=== PATIENT | male | born 1950 | race Caucasian/White ===

== ENCOUNTER 2019-08-29 12:25 | Outpatient (CLI) | payer MEDICARE, SELFPAY ==
--- NOTE | 2019-08-29 12:48 | ECHO_ITS ---
Patient Info Name: Eric Connor Age: 69 years : 1950 Gender: Male Ht: 66 in Wt: 151 lbs BSA: 1.79 m2 HR: 101 bpm BP: 125 / 81 mmHg Exam Date: 08/29/2019 1:05 PM Exam Location: [facility] Pul[facility] Patient Status: Outpatient Admit Date: 08/29/2019 Staff Ordering Physician: Tristan Cheng DO Help Desk Assistant: Theresa Lund RDCS Attending Provider: Tristan Cheng DO Referring Physician: Prosper CONNER; Exam Type: CA echo doppler color flow Study Info Indications I35.0 - Nonrheumatic aortic (valve) stenosis Complete two-dimensional, color flow and Doppler transthoracic echocardiogram is performed. Summary 1. Left ventricular chamber dimension is severely enlarged. 2. Left ventricular systolic function is severely reduced, estimated at 30-35%. 3. The left ventricular diastolic function is grade IV diastolic dysfunction. 4. E/e' 24 is elevated. 5. Left atrial chamber dimension is moderately enlarged. 6. Right atrial chamber dimension is mildly enlarged. 7. There is severe aortic valve sclerosis. 8. By planimetry, Aortic valve area is 0.7 cm2. 9. Dimensionless index is 26.1 which suggests mod-severe aortic stenosis. 10. There is severe aortic valve stenosis with a peak velocity of 299 cm/s, mean gradient of 13 mmHg, and aortic valve area of 0.6 cm2. 11. There is mild aortic valve regurgitation. 12. There is mild to moderate mitral valve regurgitation. 13. There is mild to moderate tricuspid valve regurgitation. 14. Mild pulmonary hypertension, estimated pulmonary arterial systolic pressure is 48 mmHg. 15. Mild atheroma in anterior and posterior aortic root. Left Ventricle E/e' 24 is elevated. Left ventricular chamber dimension is severely enlarged. Left ventricular systolic function is severely reduced, estimated at 30-35%. The left ventricular diastolic function is grade IV diastolic dysfunction. Right Ventricle Right ventricular chamber dimension is normal. Right ventricular systolic function is normal. Left Atria Left atrial chamber dimension is moderately enlarged. Right Atria Right atrial chamber dimension is mildly enlarged. Aortic Valve By planimetry, Aortic valve area is 0.7 cm2. Dimensionless index is 26.1 which suggests mod-severe aortic stenosis. The aortic valve is trileaflet. There is severe aortic valve sclerosis. There is severe aortic valve stenosis with a peak velocity of 299 cm/s, mean gradient of 13 mmHg, and aortic valve area of 0.6 cm2. There is mild aortic valve regurgitation. Pulmonic Valve There is no pulmonic regurgitation. Mitral Valve There is no mitral valve stenosis. There is mild to moderate mitral valve regurgitation. Tricuspid Valve There is mild to moderate tricuspid valve regurgitation. Mild pulmonary hypertension, estimated pulmonary arterial systolic pressure is 48 mmHg. Pericardium/Pleural There is no pericardial effusion. Inferior Vena Cava Normal inferior vena cava with >50% collapse upon inspiration consistent with normal right atrial pressure, 5 mmHg. Aorta Mild atheroma in anterior and posterior aortic root. The aortic root size at the sinus of Valsalva is normal. Left Ventricular Outflow Tract Name Value Normal LVOT 2D LVOT Diameter
== END 2019-08-29 12:26 | disposition home or self-care (01) ==
LOC: ANHCARD 12:34
PROVIDERS: PCP Family Medicine; Visit Provider Internal Medicine Cardiovascular Disease
DX: I35.0 Nonrheumatic aortic (valve) stenosis (principal)
CPT/HCPCS: 93306

== ENCOUNTER 2019-09-21 10:26 | Outpatient (CLI) | payer MEDICARE, SELFPAY ==
[2019-09-27 10:35] LABS: Testosterone Free 110.7 pg/mL (30.0-135.0); Testosterone Total 1035 ng/dL (250-1100)
== END 2019-09-21 10:27 | disposition home or self-care (01) ==
LOC: ANHBWCLAB 10:30
PROVIDERS: PCP Family Medicine; Visit Provider Family Medicine
DX: E03.9 Hypothyroidism, unspecified (principal); E78.5 Hyperlipidemia, unspecified; Z12.5 Encounter for screening for malignant neoplasm of prostate; Z82.62 Family history of osteoporosis; Z79.899 Other long term (current) drug therapy; N99.89 Other postprocedural complications and disorders of genitourinary system
CPT/HCPCS: 36415; 84402; 84403

== ENCOUNTER 2020-11-12 17:19 | Inpatient (IN) | payer MEDICARE, SELFPAY ==
[2020-11-12] VITALS (17 sets, daily range): BP systolic 104–138; BP diastolic 72–76; PULSE 91–121; RESP 17–23; TEMP 36.2–36.6; O2SAT 94–100; BMI 21.4
--- NOTE | ~2020-11-12 | US_ITS ---
EXAMINATION: US carotid duplex BI DATE: 11/13/2020 11:57 INDICATION: Carotid atherosclerosis. Weakness and syncope TECHNIQUE: Grayscale, color Doppler, and pulsed Doppler images of the cervical carotid arteries were obtained. The degree of vessel stenosis is placed in one of the following categories: normal, <50%, 5 0-69%, >=70% but less than near-occlusion, near-occlusion, or total occlusion. Note that percent sten osis relative to normal distal artery lumen diameter is indirectly measured from velocity measurement s as described by Jay, et al. Radiology 2003; 229:340-346. COMPARISON: None. FINDINGS: RIGHT: The right common carotid artery (CCA) peak systolic velocity (PSV) is 65 cm/s. The right internal car otid artery (ICA) PSV is 82 cm/s. The right ICA end-diastolic velocity (EDV) is 18 cm/s. The right IC A/CCA PSV ratio is 1.3. Grayscale and color Doppler images yield an estimate of <50% diameter reducti on from plaque in the ICA. The external carotid artery (ECA) PSV is 77 cm/s. There is antegrade flow in the right vertebral artery. LEFT: The left CCA PSV is 73 cm/s. The left ICA PSV is 83 cm/s. The left ICA EDV is 20 cm/s. The left ICA/C CA PSV ratio is 1.1. Grayscale and color Doppler images yield an estimate of <50% diameter reduction from plaque in the ICA. The ECA PSV is 82 cm/s. There is antegrade flow in the left vertebral artery. IMPRESSION: 1. <50% stenosis in the right internal carotid artery. 2. <50% stenosis in the left internal carotid artery. Reviewed, dictated and finalized at location A.
--- NOTE | ~2020-11-12 | XR_ITS ---
EXAMINATION: XR chest 2V DATE: 11/12/2020 17:41 INDICATION: Chronic shortness of breath. TECHNIQUE: Frontal and lateral views of the chest were obtained. COMPARISON: Chest 2 views 04/06/2019 FINDINGS: There are small pleural effusions. There is mild atelectasis at the lung bases. No pneumoth orax. Cardiomegaly is noted. IMPRESSION: 1. Small pleural effusions. 2. Cardiomegaly. Reviewed, dictated and finalized at location A.
--- NOTE | ~2020-11-12 | XR_ITS ---
EXAMINATION: XR abdomen/kub 1V DATE: 11/12/2020 19:20 INDICATION: Bloating. TECHNIQUE: A supine view of the abdomen was obtained. COMPARISON: None. FINDINGS: There are no dilated loops of bowel. There is a paucity of stool in the colon. IMPRESSION: 1. Normal bowel gas pattern. Reviewed, dictated and finalized at location A.
--- NOTE | 2020-11-12 17:30 | ECG_ITS ---
Measurements Intervals [place] Rate: 116 P: ND: 0 QRS: -57 QRSD: 101 T: 115 QT: 324 QTc: 450 Interpretive Statements SINUS TACHYCARDIA LEFT AXIS DEVIATION LEFT VENTRICULAR HYPERTROPHY AND ST-T CHANGE CANNOT RULE OUT SEPTAL INFARCT, AGE INDETERMINATE BORDERLINE ST-T WAVE ABNORMALITY- LATERAL LEADS ABNORMAL ECG Electronically Signed On 11-12-2020 19:50:00 CDT by Tristan Cheng D.O.
[2020-11-12 17:37] LABS: Basophils Percent Auto 0.5 % (0.2-1.2); Eosinophils Absolute Auto 0.1 K/mm3 (0-0.3); Eosinophils Percent Auto 0.9 % (0-4.4); Hematocrit 42.5 % (42.0-52.0); Hemoglobin 14.2 g/dL (14.0-18.0); Immature Granulocyte Absolute 0.01 K/mm3 (0.00-0.031); Immature Granulocyte Percent A 0.2 % (0-0.5); Lymphocytes Absolute Auto 2.24 K/mm3 (0.9-3.2); Lymphocytes Percent Auto 39.1 % (18.3-44.2); Mean Corpuscular HGB Conc 33.4 g/dl (32-36); Mean Corpuscular Hemoglobin 34.3 pg (26-34); Mean Corpuscular Volume 102.7 fl (80-100); Monocytes Absolute Auto 0.5 K/mm3 (0.1-0.6); Monocytes Percent Auto 7.9 % (2.6-8.5); Neutrophils Percent Auto 51.4 % (45.5-73.1); Platelet Count Result 120 k/mm3 (150-375); Red Blood Count 4.14 M/mm3 (4.6-6.20); Red Cell Distribution Width 15.1 % (11.5-14.5); White Blood Count 5.7 K/mm3 (4.5-10.0)
[2020-11-12 17:46] LABS: Anion Gap 10 mmol/L (8-16); Blood Urea Nitrogen 29 mg/dL (9-20); Calcium 9.7 mg/dL (8.4-10.2); Carbon Dioxide 22 mmol/L (22-30); Chloride 108 mmol/L (98-107); Estimated CRCL calculation 45 ml/min; Estimated Glomerular Filt Rate 60; Glucose 104 mg/dL (75-110); Potassium 4.9 mmol/L (3.4-5.0); Sodium 140 mmol/L (137-145)
[2020-11-12 18:27] LABS: NT Pro B Type Natriuretic Pept 13800 pg/mL (5-100)
[2020-11-12] MEDS: FUROSEMIDE INJ 40 MG/4 ML VIAL IV PUSH (19:11)
--- NOTE | 2020-11-12 19:14 | ED.GENADULT ---
HPI - General Adult General Chief complaint: Shortness of Breath/Dyspnea Stated complaint: SOB Time Seen by Provider: 11/12/20 17:24 History of Present Illness HPI narrative: Patient is a 70-year-old male who presents ER with multiple complaints. Main complaint is shortness of breath has been ongoing and worsening for the last year but markedly more over the last couple of months. Reports he can only walk 50 feet before he is profoundly weak and short of breath. 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 Reports overnight he turned blue in the lips after getting an argument and losing his breath. He is also had some intermittent swelling in his legs. Denies orthopnea but reports he cannot sleep at night. Unsure why. Today while eating he felt like he could not finish a hotdog due to distention of his abdomen. Reports he intermittently has a good bowel movement but he is mostly just been releasing air from his rectum. Denies diarrhea. Related Data Allergies Allergy/AdvReac Type Severity Reaction Status Date / Time No Known Allergies Allergy Verified 11/12/20 17:28 Review of Systems Review of Systems: All systems reviewed & are unremarkable except as noted in HPI and below Constitutional: Constitutional: Denies chills, Denies fever(s) and Denies weakness ENT: Denies nasal congestion and Denies sore throat Cardiovascular: Cardiovascular: Denies chest pain, Denies rapid heart rate and Denies radiating jaw, neck or arm pain Respiratory: Respiratory: Denies cough, Reports dyspnea and Denies wheezing Gastrointestinal: Gastrointestinal: Denies abdominal pain, Reports bloating, Denies nausea and Denies vomiting PMFSH Past Medical History Medical History Bradycardia Dyslipidemia Hyperglycemia Hypothyroidism, unspecified Pulmonary emphysema Syncope and collapse Systolic murmur Family History Family History Grandparent Family history of congestive heart failure Mother Family history of Alzheimer's disease Social History Social History Years smoked: 30 Smoking status: Light tobacco smoker Tobacco type: cigarettes Second hand tobacco smoke exposure: No Alcohol intake: current Drinks per week: 1 Substance use: never Exam Narrative: Exam Narrative: GENERAL: Well-appearing, well-nourished, and in no acute distress. HEAD: Normocephalic, atraumatic. CHEST: Clear to auscultation. No respiratory distress. HEART: Tachycardic and regular. Normal peripheral pulses. ABDOMEN: Soft, nontender, nondistended. EXTREMITIES: Normal range of motion. 1+ edema. SKIN: Warm, dry, no rash. NEURO: Alert and oriented x3. PSYCH: Normal mood and affect. Course Reevaluation(s) Reevaluation #1: Chart review shows patient had an echocardiogram 2019 with mild aortic valve stenosis. Repeat echo in 2019 showed moderate to severe according to Dr. Cheng's note. Patient has been referred to see Dr. Baumann and has scheduled follow-up on 11/19/2020. I suspect patient has severe to critical and likely needs valve replacement. Patient be admitted to the hospitalist service to be diuresed and have a repeat echo. I will have the heart care group consulted. Date: 11/12/20 Time: 20:11 Vital Signs Vital signs: Vital Signs Temperature 97.9 F 11/12/20 17:23 Pulse Rate 121 H 11/12/20 17:23 Respiratory Rate 20 11/12/20 17:23 Blood Pressure 113/74 11/12/20 17:23 Pulse Oximetry 99 11/12/20 17:23 Temperature 97.9 F 11/12/20 17:23 Pulse Rate 98 11/12/20 19:52 Respiratory Rate 18 11/12/20 19:52 Blood Pressure 112/76 11/12/20 19:16 Pulse Oximetry 99 11/12/20 19:52 Medical Decision Making Vital Signs Vital Signs: Vital Signs Temperature 97.9 F 11/12/20 17:23 Pulse Rate 121 H 11/12/20 17:23 Respiratory Rate 20 05/0
--- NOTE | 2020-11-12 21:19 | ADMGEN ---
This patient, Eric Connor, was admitted to 2 Medical Room 253-. Patient/family oriented to hospital policies and general routines including ID bracelet, bed and alarms, visiting hours, pain management, procedures, bathroom and other care routines, personal items, smoking policy, room service/diet, and visiting hours. Information on how to activate the Rapid Response Team has been discussed. Patient/Family are encouraged to report perceived risks to care and to ask questions if they do not understand what they are told or what they should do.
--- NOTE | 2020-11-12 22:40 | PM.IMHP ---
H&P: HPI History of Present Illness Date/Time: 11/12/20 22:40 Patient is a 70-year-old male who presents ER with worsening shortness of breath this afternoon, but has been ongoing for many months. He has been getting weaker and progressvely getting short of breath. he has been daignsoed with severe aortic stenosis for which he is going to see Dr. Turcios next week. he rpeots one night he got so short of breath his lips turned blue and lost his breath. today he was not able to eat because fo how short of breath he got. he gets intermittent swelling of his legs as well. he was given some lasix in [facility] and he is currently feeling much better. Chief Complaint: shortness of breath Review of Systems Review of Systems: Narrative: - CONSTITUTIONAL: Denies weight loss, fever and chills. - HEENT: Denies changes in vision and hearing - RESPIRATORY: reports SOB and denies cough. - CV: Denies palpitations and CP. - GI: Denies abdominal pain, nausea, vomiting and diarrhea. - : Denies dysuria and urinary frequency. - MSK: Denies myalgia and joint pain. - SKIN: Denies rash and pruritus. - NEUROLOGICAL: Denies headache and syncope. - PSYCHIATRIC: Denies recent changes in mood. Denies anxiety and depression. All systems reviewed & are unremarkable except as noted in HPI and below PMFSH Past Medical History Medical History Bradycardia Dyslipidemia Hyperglycemia Hypothyroidism, unspecified Pulmonary emphysema Syncope and collapse Systolic murmur Family History Family History Grandparent Family history of congestive heart failure Mother Family history of Alzheimer's disease Social History Social History Years smoked: 30 Smoking status: Current some day smoker Tobacco type: cigarettes Second hand tobacco smoke exposure: No Alcohol intake: former Drinks per week: 1 Substance use: never Substance use type: does not use Gender identity (if verbalized by the patient): Male Sexual Orientation (if Verbalized by the Patient): Straight or Heterosexual Spiritual care concerns: No Meds Home Medications and Allergies Home Medications Medication Instructions Recorded Confirmed Type carvedilol 3.125 mg PO DAILY 11/12/20 11/12/20 History coenzyme Q10 [Co Q-10] 100 mg PO DAILY 11/12/20 11/12/20 History levothyroxine 125 mcg PO DAILY 11/12/20 11/12/20 History lisinopril 2.5 mg PO DAILY 11/12/20 11/12/20 History pravastatin 10 mg PO DAILY 11/12/20 11/12/20 History Allergies Allergy/AdvReac Type Severity Reaction Status Date / Time No Known Allergies Allergy Verified 11/12/20 17:28 Vital Signs Vital Signs - 24 hr 11/12/20 17:23 11/12/20 17:25 11/12/20 17:29 Temperature 97.9 F Pulse Rate 121 H 121 H 116 H Respiratory Rate 20 23 H 21 H Blood Pressure 113/74 113/74 Pulse Oximetry 99 96 97 11/12/20 17:30 11/12/20 17:31 11/12/20 17:45 Temperature Pulse Rate 113 H 112 H Respiratory Rate 20 22 H Blood Pressure 104/72 Pulse Oximetry 96 95 95 11/12/20 18:01 11/12/20 18:15 11/12/20 18:30 Temperature Pulse Rate Respiratory Rate Blood Pressure Pulse Oximetry 98 95 94 11/12/20 18:45 11/12/20 19:12 11/12/20 19:15 Temperature Pulse Rate 94 91 103 H Respiratory Rate 18 17 21 H Blood Pressure 138/72 Pulse Oximetry 96 97 94 11/12/20 19:16 11/12/20 19:37 11/12/20 19:52 Temperature Pulse Rate 100 100 98 Respiratory Rate 20 20 18 Blood Pressure 112/76 Pulse Oximetry 95 96 99 11/12/20 21:26 11/12/20 21:48 Temperature 97.1 F L Pulse Rate 110 H 98 Respiratory Rate 18 Blood Pressure 113/74 Pulse Oximetry 100 Exam Narrative: Exam Narrative: GENERAL: The patient is well developed, not in acute distress HEENT: Nonicteric sclerae, PERRLA, EOMI. Oropharynx clear. Grady
[2020-11-13] VITALS (11 sets, daily range): BP systolic 92–118; BP diastolic 62–68; PULSE 72–97; RESP 18–20; TEMP 35.8–36.2; O2SAT 97–98
--- NOTE | 2020-11-13 | ECHO_ITS ---
Patient Info Name: Eric Connor Age: 70 years : 1950 Gender: Male Ht: 66 in Wt: 133 lbs BSA: 1.68 m2 HR: 92 bpm BP: 103 / 63 mmHg Heart Rhythm: Sinus Rhythm Technical Quality: Good Exam Date: 11/13/2020 3:58 PM Exam Location: [facility] Pulmonary Exam Room: 253 Patient Status: Inpatient Admit Date: 11/12/2020 Staff Ordering Physician: Geraldine Cooley NP Top Carrier: Soha Vasquez RDCS Attending Provider: Geraldine Cooley NP Referring Physician: Yasir JOEL; Exam Type: CA echo doppler color flow Study Info Indications - syncope chf Complete two-dimensional, color flow and Doppler transthoracic echocardiogram is performed. Summary 1. Complete two-dimensional, color flow and Doppler transthoracic echocardiogram is performed. 2. Moderate left ventricular enlargement. Surprisingly, no LVH. Left ventricular systolic function is severely reduced, estimated at 15%. Calculated ejection fraction 24%. Severe global hypokinesis with some sparing of the basal inferior wall. The septum and apex appear akinetic. Grade 2 diastolic dysfunction is present. 3. Right ventricular chamber dimension is mildly enlarged with moderate hypokinesis. 4. Left atrial chamber dimension is severely enlarged. 5. Right atrial chamber dimension is mildly enlarged. 6. There is moderate to severe aortic valve stenosis with a peak velocity of 2.8 m/s, mean gradient of 17 mmHg, and aortic valve area of 1.1 cm2, and an AVAI of 0.6 cm2. The valve does appear severely stenotic and heavily calcified. The low peak valvular velocity and low mean gradient may be a reflection of the patient's poor cardiac output. However he may have an unrelated cardiomyopathy as well as aortic stenosis. 7. There is moderate mitral valve regurgitation. 8. There is mild tricuspid valve regurgitation. 9. Moderate pulmonary hypertension, estimated pulmonary arterial systolic pressure is 52 mmHg. 10. Normal sinus rhythm. Left Ventricle Left ventricular chamber dimension is moderately enlarged. Moderate left ventricular enlargement. Surprisingly, no LVH. Left ventricular systolic function is severely reduced, estimated at 15%. Calculated ejection fraction 24%. Severe global hypokinesis with some sparing of the basal inferior wall. The septum and apex appear akinetic. Grade 2 diastolic dysfunction is present. There is no increased left ventricular wall thickness. Left ventricular septal wall motion is normal. The left ventricular diastolic function is grade II diastolic dysfunction. Right Ventricle Right ventricular chamber dimension is mildly enlarged with moderate hypokinesis. Right ventricular systolic function is reduced. Left Atria Left atrial chamber dimension is severely enlarged. Right Atria Right atrial chamber dimension is mildly enlarged. Aortic Valve The aortic valve is not well visualized. There is no aortic valve sclerosis. There is moderate to severe aortic valve stenosis with a peak velocity of 2.8 m/s, mean gradient of 17 mmHg, and aortic valve area of 1.1 cm2, and an AVAI of 0.6 cm2. The valve does appear severely stenotic and heavily calcified. The low peak valvular velocity and low mean gradient may be a reflection of the patient's poor cardiac output. However he may have an unrelated cardiomyopathy as well as aortic stenosis. There is mild aortic valve regurgitation. There is severe aortic valve calcification. Pulmonic Valve The pulmonic valve is normal. There is no pulmonic valve stenosis. There is trace pul
[2020-11-13] MEDS: LEVOTHYROXINE SODIUM 125 MCG TABLET PO (06:07)
[2020-11-13] MEDS: LEVOTHYROXINE SODIUM 25 MCG TABLET PO (08:42)
[2020-11-13] MEDS: lisinopriL 2.5 MG TABLET PO (08:43)
[2020-11-13] MEDS: FUROSEMIDE INJ 40 MG/4 ML VIAL IV PUSH (08:43)
[2020-11-13] MEDS: carvediloL 3.125 MG TABLET PO (08:44)
[2020-11-13] MEDS: PRAVASTATIN SODIUM 10 MG TABLET PO (08:44)
[2020-11-13] MEDS: ENOXAPARIN 40 MG/0.4 ML SYRINGE SUB-Q (08:45)
--- NOTE | 2020-11-13 10:19 | PM.IMPN ---
Progress Note: A&P Assessment and Plan (1) CHF (congestive heart failure): Code(s): I50.9 - Heart failure, unspecified Status: Acute Assessment and Plan: ekg with sinus tachycardia and strain pattern. CXR with bilateal mild effusions and cardiomegaly. BNP 41741 improved with diuresis. will continue diuresis. ECHO ordered. has history low ER and Aortic stenosis - last years ECHO. ECHO 09/2019: with aortic valve area 0.7 cm2, dimensions index 26.1 suggesting moderate to severe . Cardiomyopathy with EF 30-35% per echo 09/2019: mild to moderate MR/TR. continue bband acei. combined diastolic and systolic heart failrue: acute on chronic. hx of syncope: Cardiology suggested PPM in past but patient refused/no F/U. mild thrombocytopenia and uncompenstated hypothyroidsim may also be contributory DVT proph: lovenox (2) Hypothyroidism, unspecified: Code(s): E03.9 - Hypothyroidism, unspecified Status: Acute Assessment and Plan: Not fully compensated. TSH was elevated at 7.76. Patient's levothyroxine was changed from 100 mcg 125 mcg by his primary care provider Today raised the dose to 150 mcg at this time. Instructed the patient to recheck his TSH in 6 weeks with his primary care provider. (3) Dyspnea: Code(s): R06.00 - Dyspnea, unspecified Status: Acute Assessment and Plan: Improved after diuresis recheck BNP tomorrow planning for diuresis need to continue on regular basis to avoid repeat exacerbation daily weights strict I and O CHF teaching (4) Combined systolic and diastolic cardiac dysfunction: Code(s): I51.89 - Other ill-defined heart diseases Status: Acute Assessment and Plan: see plan for CHF and Dyspnea (5) Systolic murmur: Code(s): R01.1 - Cardiac murmur, unspecified Status: Acute Assessment and Plan: see aortic stenosis plan (6) Aortic stenosis: Code(s): I35.0 - Nonrheumatic aortic (valve) stenosis Status: Acute Assessment and Plan: continue telemetry monitoring CXR with bilateal mild effusions and cardiomegaly. BNP 58983 improved with diuresis. will continue diuresis. ECHO ordered. has history low ER and Aortic stenosis - last years ECHO. ECHO 09/2019: with aortic valve area 0.7 cm2, dimensions index 26.1 suggesting moderate to severe . Cardiomyopathy with EF 30-35% per echo 09/2019: mild to moderate MR/TR. continue bband acei. combined diastolic and systolic heart failrue: acute on chronic. hx of syncope: Cardiology suggested PPM in past but patient refused/no F/U. 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 BNP 23539 improved with diuresis. will continue diuresis. ECHO ordered. daily weights strict I and Os. supplemental O2 as needed (9) Cardiomyopathy: Code(s): I42.9 - Cardiomyopathy, unspecified Status: Acute Assessment and Plan: ekg with sinus tachycardia and strain pattern. BNP 33005 - repeat in morning no chest pain at this time, no chest pressure will continue diuresis. ECHO ordered. possibility of a PPM (10) Syncope and collapse: Code(s): R55 - Syncope and collapse Status: Acute Assessment and Plan: telemetry monitoring continued ambulating in room without difficulty Subjective Date/time seen: 11/13/20 10:19 He noticed that he was having shortness of br
--- NOTE | 2020-11-13 13:59 | PM.CNCAR ---
Assessment and Plan Assessment and plan (1) Systolic and diastolic CHF w/reduced LV function, NYHA class 4: Code(s): I50.40 - Unspecified combined systolic (congestive) and diastolic (congestive) heart failure Status: Acute Assessment and Plan: Patient presents with acute on chronic systolic and diastolic CHF due to severe aortic stenosis and his cardiomyopathy. Improved with diuretics. He was diagnosed with severe aortic stenosis a year ago but declined further evaluation at that time. Now he is tired of being short of breath and realizes this will be a recurrent progressive process. He is ready to pursue aortic valve replacement, which I have reviewed. Probably a surgical aortic valve replacement although TAVR is possible. He will need cardiac catheterization 1st. He is feeling much better. He Would like to proceed with cardiac catheterization tomorrow. Echo pending. DC IV Lasix today, start furosemide 40 mg p.o. on November 15. Extra Kcl and Mag X 1 for leg cramps. Continue carvedilol and lisinopril, his usual home medications, unless he develops a significant hypotension. (2) Aortic stenosis: Code(s): I35.0 - Nonrheumatic aortic (valve) stenosis Status: Acute Assessment and Plan: Patient has aortic stenosis, most likely severe even though his mean gradient is not particularly high. (3) Cardiomyopathy: Code(s): I42.9 - Cardiomyopathy, unspecified Status: Acute Assessment and Plan: Severe LV enlargement and LV dysfunction with EF 30-35% last year, probably due to severe aortic stenosis. Echo pending. (4) Syncope and collapse: Code(s): R55 - Syncope and collapse Status: Acute Assessment and Plan: History of syncope which sounds vasovagal, with documented bradycardia, probably a combination of vasodepressor and cardioinhibitory syncope. Declined pacemaker in 2018. No recent episodes. History of Present Illness History of Present Illness Consult date/time: 11/13/20 13:59 Requesting physician: Jay Jay Dennis MD Consult reason: congestive heart failure and Other Reason For Visit: chf, aortic stenosis Narrative: Mr. Eric Connor is a 70-year-old male whom we were asked to see at the request of Dr. Dennis for our advice and opinion regarding his severe aortic stenosis and CHF in consultation. Mr. Connor has been short of breath with MARTIN for while but has gotten worse and worse. He is weak and just walking to the mailbox causes a lot of shortness of breath. He has had swelling and PND for the last 2 weeks but no angina. He was referred to see Dr. Baumann in our office next week for discussion. However, he felt so bad that he came to the emergency room yesterday and was found to be in mild heart failure. He is feeling a lot better with IV Lasix. He has been followed for aortic stenosis by Dr. Cheng who referred him to Dr. Baumann last year for a cardiac catheterization in preparation for aortic valve replacement. However the patient declined to follow-up. I have also seen the patient in 2017 when he had longstanding recurrent syncope and documented symptomatic bradycardia. I thought the syncope was vasovagal but with a cardio inhibitory component and recommended a pacemaker. The patient declined to follow-up. Fortunately he has not had any further episodes of syncope. He does have a history of hypertension. 02/2018 echo: EF 55-60%, mild aortic stenosis, peak velocity 2.4 m/sec 08/2019 echo: EF 30-35%, severe LV enlargement, diastolic dysfunction, biatrial enlargement, peak velocity 3 m/sec, mean gradient 13 mmHg severe aortic stenosis with a valve area 0.7 centimeters squared by planimetry, calculated aortic to the aortic valve area 0.6 cm2, mean gra
[2020-11-13] MEDS: POTASSIUM CHLORIDE 20 MEQ TABLET 40 MEQ PO (16:53)
[2020-11-13] MEDS: MAGNESIUM OXIDE 400 MG TABLET PO (17:17)
[2020-11-14] VITALS (19 sets, daily range): BP systolic 93–154; BP diastolic 51–101; PULSE 61–88; RESP 8–20; TEMP 36.2–36.7; O2SAT 90–100
[2020-11-14 05:44] LABS: Basophils Percent Auto 0.6 % (0.2-1.2); Eosinophils Absolute Auto 0.1 K/mm3 (0-0.3); Eosinophils Percent Auto 1.3 % (0-4.4); Hematocrit 38.9 % (42.0-52.0); Hemoglobin 13.3 g/dL (14.0-18.0); Immature Granulocyte Absolute 0.02 K/mm3 (0.00-0.031); Immature Granulocyte Percent A 0.4 % (0-0.5); Immature Platelet Fraction Pct 3.5 % (0.9-11.2); Lymphocytes Absolute Auto 1.68 K/mm3 (0.9-3.2); Lymphocytes Percent Auto 35.7 % (18.3-44.2); Mean Corpuscular HGB Conc 34.2 g/dl (32-36); Mean Corpuscular Hemoglobin 34.4 pg (26-34); Mean Corpuscular Volume 100.5 fl (80-100); Mean Platelet Volume 9.6 fl (7.4-10.4); Monocytes Absolute Auto 0.4 K/mm3 (0.1-0.6); Monocytes Percent Auto 9.1 % (2.6-8.5); Neutrophils Absolute Auto 2.5 K/mm3 (1.3-6.7); Neutrophils Percent Auto 52.9 % (45.5-73.1); Platelet Count Result 127 k/mm3 (150-375); Red Blood Count 3.87 M/mm3 (4.6-6.20); Red Cell Distribution Width 14.6 % (11.5-14.5); White Blood Count 4.7 K/mm3 (4.5-10.0)
[2020-11-14 05:54] LABS: Alanine Aminotransferase 33 U/L (4-50); Albumin Level 3.4 g/dL (3.5-5.1); Alkaline Phosphatase 65 U/L (38-126); Anion Gap 3 mmol/L (8-16); Aspartate Amino Transferase 38 U/L (17-59); Bilirubin,Total 1.5 mg/dL (0.2-1.3); Blood Urea Nitrogen 27 mg/dL (9-20); Calcium 9.2 mg/dL (8.4-10.2); Carbon Dioxide 30 mmol/L (22-30); Chloride 104 mmol/L (98-107); Estimated CRCL calculation 41 ml/min; Estimated Glomerular Filt Rate 60; Glucose 93 mg/dL (75-110); Magnesium 1.9 mg/dL (1.6-2.3); Potassium 4.2 mmol/L (3.4-5.0); Sodium 137 mmol/L (137-145)
[2020-11-14] MEDS: LEVOTHYROXINE SODIUM 150 MCG TABLET PO (06:27)
[2020-11-14] MEDS: PRAVASTATIN SODIUM 10 MG TABLET PO (08:21)
[2020-11-14 08:23] LABS: INR 1.2; Prothrombin Time 15.5 Seconds (11.1-14.7)
[2020-11-14] MEDS: SODIUM CHLORIDE 0.9% IV 500 ML 100 ML IV CONT (08:28)
--- NOTE | 2020-11-14 09:12 | PM.IMPN ---
Progress Note: A&P Assessment and Plan (1) Systolic and diastolic CHF w/reduced LV function, NYHA class 4: Code(s): I50.40 - Unspecified combined systolic (congestive) and diastolic (congestive) heart failure Status: Acute Assessment and Plan: Presented with mild pleural effusion and cardiomegaly [place] [address]. Echo performed 11/13/2020 showed severely decreased EF at approximately 15% with grade 2 diastolic dysfunction Appreciate cardiology recommendations IV Lasix discontinued. Start p.o. Lasix 40 mg daily tomorrow Monitor intake and output. Weigh daily. Heart healthy diet. (2) Aortic stenosis: Code(s): I35.0 - Nonrheumatic aortic (valve) stenosis Status: Acute Assessment and Plan: Moderate to severe aortic stenosis noted on echocardiogram. He has been evaluated by cardiology as an outpatient and TAVR has been considered. Plan for cardiac catheterization this afternoon Appreciate cardiology recommendations Lisinopril and carvedilol on hold given low blood pressure readings. Continue to monitor BP closely (3) Cardiomyopathy: Code(s): I42.9 - Cardiomyopathy, unspecified Status: Acute Assessment and Plan: Likely related to severe aortic stenosis. Echo reviewed. Appreciate cardiology recommendations (4) Hypothyroidism, unspecified: Code(s): E03.9 - Hypothyroidism, unspecified Status: Acute Assessment and Plan: TSH was elevated at 7.76. Levothyroxine was uptitrated to 150 mcg Repeat TSH with reflex in 4-6 weeks (5) Dyslipidemia: Code(s): E78.5 - Hyperlipidemia, unspecified Status: Acute Assessment and Plan: Lipid panel reviewed. Currently on pravastatin 10 mg. He will likely need a high intensity statin. Will await further cardiology recommendations at this time but will consider transition to high intensity statin prior to discharge. (6) Macrocytic anemia: Code(s): D53.9 - Nutritional anemia, unspecified Status: Acute Assessment and Plan: H&H slightly decreased. No evidence of blood loss and vital signs are stable. Monitor H&H closely Check B12 and folate Subjective Date/time seen: 11/14/20 09:12 Interval history: Date of service: 11/14/2020 Eric Connor is a 70-year-old male with a history of aortic stenosis, CHF, and hypothyroidism who is seen in follow up for CHF exacerbation. He will be undergoing cardiac catheterization this afternoon. He is not having any chest pain today. He denies shortness of breath. No cough. No orthopnea. Lower extremity edema has improved. He notes dark urine. Denies hematuria, dysuria, urgency or frequency. Having regular bowel movements. No dizziness, lightheadedness, or weakness. No abdominal pain, nausea, vomiting, fever, or chills. He did note cramping in his calves upon standing. Review of Systems Review of Systems: All systems reviewed & are unremarkable except as noted in HPI and below Exam Narrative: Exam Narrative: Mr. Connor is a thin 70-year-old male who is lying supine in bed. He appears comfortable and is in NARD. Neuro: awake, alert and oriented x4, speech clear, no focal neuro deficits noted HEENMT: normocephalic, atraumatic, EOMI, sclerae anicteric, moist oral mucosa, tongue midline, nares patent Neck: supple, no lymphadenopathy Respiratory: clear to auscultation bilaterally, nonlabored breathing Cardio: regular rate, regular rhythm with S1-S2, murmur heard best at left sternal border Abdomen: nondistended, normoactive bowel sounds, soft, nontender to palpation, no rigidity or guarding Extremities: no edema, erythema, cyanosis, clubbing, or tenderness to palpation, DP pulses 2+ bilaterally Skin: no rashes or lesions, warm and dry Psych: appropriate mood and affect, judgment and insight intact Objective Data Vital Signs Vital Signs: Vital Signs - 24 hr 11/13/20 12:26 05
--- NOTE | 2020-11-14 12:14 | WPDCARDPROC ---
Cardiac Cath Procedure Note Date of procedure:: 11/14/20 Performing physician:: Jhony Baumann MD Indication:: critical aortic stenosis/ severe left ventricular systolic dysfunction Brief clinical history:: this is a 70-year-old man who is known to have aortic valve stenosis by an echo of a critical nature by previous echocardiograms dating back at least 1-2 years. Evaluation in the custodial laborer was recommended by his marketing trainee but not pursued by the patient. He entered the hospital now with severely advancing shortness of breath he was found to have severe aortic stenosis by echo which appears to be severe low gradient with profoundly depressed LV systolic function. In this setting catheterization was recommended to complete his workup prior to considering aortic valve replacement. Procedure Procedure performed:: Right and left heart catheterization Sedation/Medication given:: Versed 2 mg case start time 11:31 a.m. case end time 12:08 p.m. sedation provided by Pearl Foster RN, trained observer Access site:: right femoral artery, right femoral vein Estimated blood loss:: 10-15 cc Procedure note:: patient was brought to the cardiac catheterization lab in the postabsorptive state. The right femoral triangle was prepared and draped in the usual fashion. Anesthesia was provided with 1% lidocaine infiltrated locally. Using the modified Seldinger technique the right femoral artery was punctured and a 6 [place] 45 cm sheath was placed into the central aorta. After this the right femoral vein was punctured and a 7 [place] vascular sheath was placed. I performed a standard right heart catheterization using a balloon tip Boaz-Keith catheter measuring hemodynamics, thermodilution cardiac outputs and sampling av O2 difference. The Boaz-Keith catheter was then removed. I then elected to 1st perform coronary angiograms and injected the left coronary artery using a standard 5 [place] FL4 catheter and the right coronary using a standard 5 [place] JR4 catheter. After completing coronary angiography I elected not to attempt crossing his aortic valve and placed an intra-aortic balloon pump. The procedure sheath was switched out over guidewire for a balloon pump sheath the balloon pump was then placed into the descending thoracic aorta and connected with one-to-one counterpulsation being initiated. He was given a bolus of heparin 5000 units after placing the balloon pump will be placed on a heparin infusion. He will be getting a bed in the ICU following this procedure and then plans will be made for transfer to more advanced Center were cardiothoracic surgery consultation is available. Findings:: Hemodynamics: Right atrial pressure is 5 mmHg right ventricle 58/0 end-diastolic. Pulmonary artery pressure 58 over 18. Pulmonary capillary wedge pressure is 22. Thermodilution cardiac output measured . Thermodilution cardiac output measured 2.8 liters/minute giving an index of 1.7 Zena cardiac output was 4.0 with an index of 2.4. The left main coronary artery is medium in caliber there is a 95% stenosis in the distal aspect of the left main. The left anterior descending appears to be a medium caliber artery with very little JOEY 1 flow distal to the stenotic left main. There appears to be some evidence of competitive flow in the LAD distal to this. Circumflex is a moderate caliber vessel giving rise to the marginal branches the proximal trunk of the circumflex has moderate stenosis of 70-80%. The right coronary artery is medium in caliber dominant to the posterior circulation. There is a hazy lesion in the mid RCA appears to be about 60-70% stenosis. Distal to this the are PDA and RPL branches are free of significant lesions. There is well-developed collateral filling through the septals to the LAD. Conclusion:: 1. Severe three-vessel coronary disease as detailed above including high-grade distal stenosis of the left main. Moderate
--- NOTE | 2020-11-14 12:38 | PC.NURSE ---
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 Report received from LUZ ELENA Gallegos. Balloon pump in place in right groin. Pedal pulse palpable.
[2020-11-14] MEDS: HEPARIN SOD/D5W 100 UNITS/ML 25,000 UNITS/250 ML BAG 10 UNITS IV CONT (12:45)
--- NOTE | 2020-11-14 12:45 | WPDCNINT ---
Assessment and Plan Assessment and plan (1) Systolic and diastolic CHF w/reduced LV function, NYHA class 4: Code(s): I50.40 - Unspecified combined systolic (congestive) and diastolic (congestive) heart failure Status: Acute Assessment and Plan: ECHO 2. Moderate left ventricular enlargement. Surprisingly, no LVH. Left ventricular systolic function is severely reduced, estimated at 15%. Calculated ejection fraction 24%. Severe global hypokinesis with some sparing of the basal inferior wall. The septum and apex appear akinetic. Grade 2 diastolic dysfunction is present. 3. Right ventricular chamber dimension is mildly enlarged with moderate hypokinesis. 4. Left atrial chamber dimension is severely enlarged. 5. Right atrial chamber dimension is mildly enlarged. 6. There is moderate to severe aortic valve stenosis with a peak velocity of 2.8 m/s, mean gradient of 17 mmHg, and aortic valve area of 1.1 cm2, and an AVAI of 0.6 cm2. The valve does appear severely stenotic and heavily calcified. The low peak valvular velocity and low mean gradient may be a reflection of the patient's poor cardiac output. However he may have an unrelated cardiomyopathy as well as aortic stenosis. 7. There is moderate mitral valve regurgitation. 8. There is mild tricuspid valve regurgitation. 9. Moderate pulmonary hypertension, estimated pulmonary arterial systolic pressure is 52 mmHg. 10. Normal sinus rhythm.Presented with mild pleural effusion and cardiomegaly [place] [address]. Echo performed 11/13/2020 showed severely decreased EF at approximately 15% with grade 2 diastolic dysfunction Appreciate cardiology recommendations IV Lasix discontinued. Start p.o. Lasix 40 mg daily tomorrow Monitor intake and output. Weigh daily. Heart healthy diet. (2) CAD (coronary artery disease), [place] coronary artery: Code(s): I25.10 - Atherosclerotic heart disease of [place] coronary artery without angina pectoris Status: Acute Assessment and Plan: Severe Multi-vessel coronary disease on cardiac catheterization done today (3) Cardiogenic shock: Code(s): R57.0 - Cardiogenic shock Status: Acute Assessment and Plan: Status post IABP placement (4) Aortic stenosis: Code(s): I35.0 - Nonrheumatic aortic (valve) stenosis Status: Acute Assessment and Plan: Severe aortic stenosis noted on echocardiogram. (5) Cardiomyopathy: Code(s): I42.9 - Cardiomyopathy, unspecified Status: Acute Assessment and Plan: Likely related to coronary disease and severe aortic stenosis. (6) Hypothyroidism, unspecified: Code(s): E03.9 - Hypothyroidism, unspecified Status: Acute Assessment and Plan: Continue Levothyroxine at increased dose (7) Dyslipidemia: Code(s): E78.5 - Hyperlipidemia, unspecified Status: Acute Assessment and Plan: Continue pravastatin 10 mg. (8) Tobacco abuse: Code(s): Z72.0 - Tobacco use Status: Acute Assessment and Plan: Patient continues to smoke 2-3 cigarettes a day. I have encouraged and counseled him to quit altogether. Additional Plan Discuss with cardiology plan to admit patient for ICU monitoring and management. Goal is to transfer patient to [facility] for AVR and CABG. Until then patient will be monitored and manage here in ICU. He has IABP in place and pulses Will be monitored. Continue anticoagulation in the form of heparin infusion as per cardiology. Monitor platelets. His blood pressure is adequate at this time and will continue Continue low-dose beta-neptali ENZO-inhibitor and statin. Add aspirin. he is getting 1 bag of saline as part of renal protection protocol from contrast that he is received. will hold Lasix today. Check chest x-ray Case discussed with Dr. Baumann Total Critical Care Time - 30 minutes Due to a high probabil
[2020-11-14] MEDS: SODIUM CHLORIDE 0.9% IV 1,000 ML 125 ML IV CONT (13:10)
[2020-11-14 14:16] LABS: Basophils Percent Auto 0.7 % (0.2-1.2); Eosinophils Percent Auto 0.7 % (0-4.4); Hematocrit 39.5 % (42.0-52.0); Hemoglobin 13.1 g/dL (14.0-18.0); Immature Granulocyte Absolute 0.01 K/mm3 (0.00-0.031); Immature Granulocyte Percent A 0.2 % (0-0.5); Lymphocytes Absolute Auto 1.39 K/mm3 (0.9-3.2); Mean Corpuscular HGB Conc 33.2 g/dl (32-36); Mean Corpuscular Hemoglobin 33.8 pg (26-34); Mean Corpuscular Volume 101.8 fl (80-100); Mean Platelet Volume 10.3 fl (7.4-10.4); Monocytes Absolute Auto 0.4 K/mm3 (0.1-0.6); Neutrophils Absolute Auto 2.5 K/mm3 (1.3-6.7); Neutrophils Percent Auto 57.4 % (45.5-73.1); Platelet Count Result 114 k/mm3 (150-375); Red Blood Count 3.88 M/mm3 (4.6-6.20); Red Cell Distribution Width 14.6 % (11.5-14.5); White Blood Count 4.3 K/mm3 (4.5-10.0)
[2020-11-14 14:19] LABS: INR 1.4; Prothrombin Time 17.7 Seconds (11.1-14.7)
--- NOTE | 2020-11-14 14:21 | PCCPR ---
Cardiopulmonary Rehab Services flyer was given to patient.
[2020-11-14] MEDS: ASPIRIN 325 MG TABLET PO (14:41)
[2020-11-14 14:42] LABS: Partial Thromboplastin Time > 200.0 SECONDS (22.3-36.8)
[2020-11-14] MEDS: ACETAMINOPHEN 325 MG TABLET 650 MG PO (17:02)
[2020-11-14 18:19] LABS: Hematocrit 39.4 % (42.0-52.0); Hemoglobin 13.4 g/dL (14.0-18.0); Mean Corpuscular Hemoglobin 34.2 pg (26-34); Mean Corpuscular Volume 100.5 fl (80-100); Mean Platelet Volume 9.2 fl (7.4-10.4); Platelet Count Result 103 k/mm3 (150-375); Red Blood Count 3.92 M/mm3 (4.6-6.20); Red Cell Distribution Width 14.6 % (11.5-14.5); White Blood Count 4.6 K/mm3 (4.5-10.0)
--- NOTE | 2020-11-14 18:48 | PC.NURSE ---
Patient accepted to [facility] CVICU bed 6. Report called to LUZ ELENA Enriquez. updated with room at [facility]. Awaiting ambulance.
[2020-11-14] MEDS: HYDROcodone/acetaminophen (*CRX) 5-325 MG TABLET 1 TAB PO (19:21)
--- NOTE | 2020-11-18 08:09 | PM.TDS ---
Transfer Discharge Sum: Prov Provider Date of admission: 11/14/20 12:49 Primary care physician: Curt Riley DO Admitting clinician: Jay Jay Dennis MD Consults: 11/12/20 Consult to Physician Routine Comment: Consulting Provider: Jhony Baumann water supply engineer/MD group to consult: mirtha Reason for consultation: chf, aortic stenosis Has provider been notified: Yes 11/14/20 Consult to Physician Routine Comment: Consulting Provider: Norm Santos Reason for consultation: balloon pump Has provider been notified: Yes DS: Admitting Diagnosis Admitting Diagnosis Admitting Diagnosis: CHF DS: Discharge Diagnosis Discharge Diagnosis (1) CAD (coronary artery disease), [place] coronary artery: Code(s): I25.10 - Atherosclerotic heart disease of [place] coronary artery without angina pectoris Status: Acute Assessment and Plan: Had cardiac catheterization on 11/14/2020 which demonstrated severe three-vessel coronary disease with low cardiac output. Intra-aortic balloon pump was placed and he was started on heparin drip. He was transferred to ICU following catheterization and was transferred to [facility] CVICU which was arranged per Cardiology. (2) Systolic and diastolic CHF w/reduced LV function, NYHA class 4: Code(s): I50.40 - Unspecified combined systolic (congestive) and diastolic (congestive) heart failure Status: Acute Assessment and Plan: Presented with mild pleural effusion and cardiomegaly [place] [address]. Echo performed 11/13/2020 showed severely decreased EF at approximately 15% with grade 2 diastolic dysfunction Appreciate cardiology recommendations IV Lasix discontinued. Start p.o. Lasix 40 mg daily Monitor intake and output. Weigh daily. Heart healthy diet. (3) Aortic stenosis: Code(s): I35.0 - Nonrheumatic aortic (valve) stenosis Status: Acute Assessment and Plan: Moderate to severe aortic stenosis noted on echocardiogram. He has been evaluated by cardiology as an outpatient and TAVR has been considered. Underwent cardiac catheterization 11/14/[address] Baumann Appreciate cardiology recommendations Lisinopril and carvedilol on hold given low blood pressure readings. Continue to monitor BP closely (4) Cardiomyopathy: Code(s): I42.9 - Cardiomyopathy, unspecified Status: Acute Assessment and Plan: Likely related to severe aortic stenosis. Echo reviewed. Appreciate cardiology recommendations (5) Hypothyroidism, unspecified: Code(s): E03.9 - Hypothyroidism, unspecified Status: Acute Assessment and Plan: TSH was elevated at 7.76. Levothyroxine was uptitrated to 150 mcg Repeat TSH with reflex in 4-6 weeks (6) Dyslipidemia: Code(s): E78.5 - Hyperlipidemia, unspecified Status: Acute Assessment and Plan: Lipid panel reviewed. Currently on pravastatin 10 mg. He will likely need a high intensity statin. Will await further cardiology recommendations (7) Macrocytic anemia: Code(s): D53.9 - Nutritional anemia, unspecified Status: Acute Assessment and Plan: H&H slightly decreased. No evidence of blood loss and vital signs remained stable. Monitor H&H closely B12 and folate ordered, but patient transferred prior to lab draw Transfer Discharge Sum: Med Medications Active and Home Medications: Home Medications carvedilol 3.125 mg PO DAILY 11/12/20 [History Confirmed 11/12/20] coenzyme Q10 [Co Q-10] 100 mg PO DAILY 11/12/20 [History Confirmed 11/12/20] levothyroxine 125 mcg PO DAILY 11/12/20 [History Confirmed 11/12/20] lisinopril 2.5 mg PO DAILY 11/12/20 [History Confirmed 11/12/20] pravastatin 10 mg PO DAILY 11/12/20 [History Confirmed 11/12/20] Transfer Discharge Sum: Hosp Hospital Course Hospital course: Date of admission: 11/12/2020 Date of transfer:
== END 2020-11-14 20:21 | disposition short-term general hospital (02) | DRG 270 ==
LOC: ANHED 20:13 → ANH2MED 20:37 → ANHICU 11-14 12:42
PROVIDERS: Internal Medicine; Specialist; Admitting Provider Internal Medicine; Emergency Provider Emergency Medicine; PCP Family Medicine; Visit Provider Hospitalist
PROC: 5A02210 Assistance with Cardiac Output using Balloon Pump, Continuous (ICD-10-PCS; CPT 93566; principal; 2020-11-14 11:00)
PROC: 5A02210 Assistance with Cardiac Output using Balloon Pump, Continuous (ICD-10-PCS; 2020-11-14 11:00)
DX: I25.10 Atherosclerotic heart disease of native coronary artery without angina pectoris (principal); I50.23 Acute on chronic systolic (congestive) heart failure; R57.0 Cardiogenic shock; I42.9 Cardiomyopathy, unspecified; I27.20 Pulmonary hypertension, unspecified; D69.6 Thrombocytopenia, unspecified; I35.0 Nonrheumatic aortic (valve) stenosis; E03.9 Hypothyroidism, unspecified; E78.5 Hyperlipidemia, unspecified; F17.210 Nicotine dependence, cigarettes, uncomplicated; J43.9 Emphysema, unspecified; Z79.899 Other long term (current) drug therapy
CPT/HCPCS: 33967; 36415; 71046; 74018; 80048; 80053; 83735; 83880; 85025; 85027; 85055; 85610; 85730; 93005; 93306; 93456; 93880; 96372; 96374; 96376; 99285; A9270; C1887; C1894; G0378; J1644; J1650; J1940; J2250; J3010; J7030; J7040

== ENCOUNTER 2021-04-06 13:30 | Outpatient (RCR) | payer MEDICARE, SELFPAY ==
[2021-01-09 15:26] VITALS: PULSE 77
== END 2021-04-06 15:08 | disposition home or self-care (01) ==
LOC: ANHCPREHAB 13:30
PROVIDERS: PCP Family Medicine; Visit Provider Specialist
DX: Z95.2 Presence of prosthetic heart valve (principal); Z95.1 Presence of aortocoronary bypass graft
CPT/HCPCS: 93798

== ENCOUNTER 2021-05-11 14:46 | Outpatient (CLI) | payer MEDICARE, SELFPAY ==
[2021-05-11 18:37] LABS: Basophils Absolute Auto 0.1 K/mm3 (0.0-0.1); Basophils Percent Auto 0.8 % (0.2-1.2); Eosinophils Absolute Auto 0.1 K/mm3 (0-0.3); Eosinophils Percent Auto 1.7 % (0-4.4); Hematocrit 35.5 % (42.0-52.0); Hemoglobin 11.9 g/dL (14.0-18.0); Immature Granulocyte Absolute 0.02 K/mm3 (0.00-0.031); Immature Granulocyte Percent A 0.3 % (0-0.5); Lymphocytes Absolute Auto 1.86 K/mm3 (0.9-3.2); Lymphocytes Percent Auto 28.5 % (18.3-44.2); Mean Corpuscular HGB Conc 33.5 g/dl (32-36); Mean Corpuscular Hemoglobin 33.5 pg (26-34); Mean Platelet Volume 9.7 fl (7.4-10.4); Monocytes Absolute Auto 0.6 K/mm3 (0.1-0.6); Monocytes Percent Auto 9.3 % (2.6-8.5); Neutrophils Absolute Auto 3.9 K/mm3 (1.3-6.7); Neutrophils Percent Auto 59.4 % (45.5-73.1); Platelet Count Result 181 k/mm3 (150-375); Red Blood Count 3.55 M/mm3 (4.6-6.20); Red Cell Distribution Width 13.4 % (11.5-14.5); White Blood Count 6.5 K/mm3 (4.5-10.0)
[2021-05-11 19:50] LABS: Cholesterol 216 mg/dL (0-200); HDL Direct 82 mg/dL; Triglycerides 139 mg/dL (<150)
[2021-05-11 20:01] LABS: LDL Cholesterol Direct 104 mg/dL
[2021-05-11 20:20] LABS: Thyroid Stimulating Hormone Reflex < 0.015 uIU/mL (0.465-4.68)
[2021-05-11 20:22] LABS: Prostate Specific Antigen 1.2 ng/mL (< OR = 4.0)
[2021-05-12 16:31] LABS: Free T4 Free Thyroxine Reflex 2.21 ng/dL (0.78-2.19)
[2021-05-15 16:07] LABS: Testosterone Free 55.5 pg/mL (30.0-135.0); Testosterone Total 703 ng/dL (250-1100)
== END 2021-05-11 14:47 | disposition home or self-care (01) ==
PROVIDERS: PCP Family Medicine; Visit Provider Family Medicine
DX: Z12.5 Encounter for screening for malignant neoplasm of prostate (principal); E03.9 Hypothyroidism, unspecified; E78.5 Hyperlipidemia, unspecified; I25.10 Atherosclerotic heart disease of native coronary artery without angina pectoris; I50.9 Heart failure, unspecified
CPT/HCPCS: 36415; 80061; 82607; 84153; 84402; 84403; 84439; 84443; 85025; G0103

== ENCOUNTER 2021-07-02 10:26 | Outpatient (CLI) | payer MEDICARE, SELFPAY ==
[2021-07-02 18:28] LABS: Hematocrit 37.4 % (42.0-52.0); Hemoglobin 12.4 g/dL (14.0-18.0); Mean Corpuscular HGB Conc 33.2 g/dl (32-36); Mean Corpuscular Hemoglobin 33.4 pg (26-34); Mean Corpuscular Volume 100.8 fl (80-100); Mean Platelet Volume 9.4 fl (7.4-10.4); Platelet Count Result 148 k/mm3 (150-375); Red Blood Count 3.71 M/mm3 (4.6-6.20); Red Cell Distribution Width 13.2 % (11.5-14.5); White Blood Count 4.3 K/mm3 (4.5-10.0)
[2021-07-02 19:14] LABS: Thyroid Stimulating Hormone Reflex < 0.015 uIU/mL (0.465-4.68)
[2021-07-02 19:44] LABS: Free T4 Free Thyroxine Reflex 1.66 ng/dL (0.78-2.19)
[2021-07-02 20:30] LABS: Total Triiodothyronine (T3) 1.15 NG/ML (0.97-1.69)
== END 2021-07-02 10:27 | disposition home or self-care (01) ==
PROVIDERS: PCP Family Medicine; Visit Provider Family Medicine
DX: D64.9 Anemia, unspecified (principal); E03.9 Hypothyroidism, unspecified; R31.29 Other microscopic hematuria; Z51.81 Encounter for therapeutic drug level monitoring; Z79.899 Other long term (current) drug therapy; R17 Unspecified jaundice
CPT/HCPCS: 36415; 84439; 84443; 84480; 85027

== ENCOUNTER 2021-08-19 12:43 | Outpatient (CLI) | payer MEDICARE, SELFPAY ==
[2021-08-19 19:16] LABS: Iron 153 ug/dL (49-181)
[2021-08-19 19:28] LABS: Percent Iron Saturation 55 % (20-50)
[2021-08-19 20:26] LABS: Folic Acid 8.8 ng/mL (2.76->20)
== END 2021-08-19 12:44 | disposition home or self-care (01) ==
PROVIDERS: PCP Family Medicine; Visit Provider Family Medicine
DX: D64.9 Anemia, unspecified (principal)
CPT/HCPCS: 36415; 82607; 82746; 83540; 83550

== ENCOUNTER 2021-08-26 13:29 | Outpatient (CLI) | payer MEDICARE, SELFPAY ==
[2021-08-26 19:52] LABS: IFOB Positive Control Positive; Immunochemical Fecal Occult Bl Negative (N)
== END 2021-08-26 13:30 | disposition home or self-care (01) ==
PROVIDERS: PCP Family Medicine; Visit Provider Family Medicine
DX: D64.9 Anemia, unspecified (principal)
CPT/HCPCS: 82274

== ENCOUNTER 2021-10-07 11:36 | Outpatient (CLI) | payer MEDICARE, SELFPAY ==
[2021-10-07 19:25] LABS: Free T4 Free Thyroxine 1.96 ng/mL (0.78-2.19)
[2021-10-07 19:31] LABS: Thyroid Stimulating Hormone Reflex 0.041 uIU/mL (0.465-4.68)
[2021-10-07 19:56] LABS: Free T4 Free Thyroxine Reflex 1.99 ng/dL (0.78-2.19)
[2021-10-07 20:33] LABS: Hepatitis B Surface Antigen Negative (Negative)
[2021-10-07 20:39] LABS: HAV RESULT Negative (Negative); Hepatitis B Core IgM Result Negative (Negative)
[2021-10-07 20:50] LABS: Hepatitis C Virus Antibody Negative (Negative)
[2021-10-07 22:06] LABS: Total Triiodothyronine (T3) 1.02 NG/ML (0.97-1.69)
== END 2021-10-07 11:37 | disposition home or self-care (01) ==
PROVIDERS: PCP Family Medicine; Visit Provider Family Medicine
DX: E03.9 Hypothyroidism, unspecified (principal); D61.818 Other pancytopenia; R53.83 Other fatigue
CPT/HCPCS: 36415; 80074; 84439; 84443; 84480; 84481

== ENCOUNTER 2021-10-28 13:05 | Outpatient (CLI) | payer MEDICARE, SELFPAY ==
[2021-10-28 18:07] LABS: Basophils Absolute Auto 0.1 K/mm3 (0.0-0.1); Basophils Percent Auto 0.7 % (0.2-1.2); Eosinophils Absolute Auto 0.1 K/mm3 (0-0.3); Eosinophils Percent Auto 1.4 % (0-4.4); Hematocrit 36.5 % (42.0-52.0); Hemoglobin 12.3 g/dL (14.0-18.0); Immature Granulocyte Absolute 0.04 K/mm3 (0.00-0.031); Immature Granulocyte Percent A 0.6 % (0-0.5); Lymphocytes Absolute Auto 1.64 K/mm3 (0.9-3.2); Lymphocytes Percent Auto 23.4 % (18.3-44.2); Mean Corpuscular HGB Conc 33.7 g/dl (32-36); Mean Corpuscular Hemoglobin 33.7 pg (26-34); Mean Platelet Volume 9.9 fl (7.4-10.4); Monocytes Absolute Auto 0.6 K/mm3 (0.1-0.6); Neutrophils Absolute Auto 4.6 K/mm3 (1.3-6.7); Neutrophils Percent Auto 65.9 % (45.5-73.1); Platelet Count Result 200 k/mm3 (150-375); Red Blood Count 3.65 M/mm3 (4.6-6.20); Red Cell Distribution Width 12.6 % (11.5-14.5)
[2021-10-28 19:02] LABS: Alanine Aminotransferase 23 U/L (4-50); Albumin Level 4.4 g/dL (3.5-5.1); Alkaline Phosphatase 65 U/L (38-126); Anion Gap 10 mmol/L (8-16); Aspartate Amino Transferase 35 U/L (17-59); Bilirubin,Total 0.6 mg/dL (0.2-1.3); Blood Urea Nitrogen 26 mg/dL (9-20); Calcium 9.3 mg/dL (8.4-10.2); Carbon Dioxide 24 mmol/L (22-30); Chloride 103 mmol/L (98-107); Estimated Glomerular Filt Rate 40; Glucose 98 mg/dL (65-110); Lactate Dehydrogenase 495 U/L (313-618); Potassium 5.1 mmol/L (3.4-5.0); Sodium 137 mmol/L (137-145)
[2021-10-28 20:20] LABS: Folic Acid > 20.0 ng/mL (2.76->20)
[2021-10-31 12:43] LABS: Methylmalonic Acid 158 nmol/L (87-318)
== END 2021-10-28 13:06 | disposition home or self-care (01) ==
PROVIDERS: PCP Family Medicine; Visit Provider Internal Medicine Hematology & Oncology
DX: D61.818 Other pancytopenia (principal)
CPT/HCPCS: 36415; 80053; 82607; 82746; 83615; 83921; 85025

== ENCOUNTER 2021-11-12 12:29 | Outpatient (CLI) | payer MEDICARE, SELFPAY ==
--- NOTE | ~2021-11-12 | CT_ITS ---
EXAMINATION: CT abdomen pelvis w con DATE: 11/12/2021 12:50 INDICATION: Splenomegaly. TECHNIQUE: Computed tomography (CT) of the abdomen and pelvis was performed with 100 mL Omnipaque 350 intravenous contrast. Automated exposure control and iterative reconstruction technique were employe d. The dose-length product was 338.85 mGy-cm. COMPARISON: None. FINDINGS: The visualized portions of the lung bases demonstrated minimal atelectasis. No pleural effu linda. The heart size is normal. There are coronary artery calcifications. No pericardial effusion. Me neda sternotomy wires are noted. The liver and gallbladder are normal. The spleen is normal in size a nd measures 9.4 cm. The pancreas, adrenal glands, and kidneys are normal. There are bilateral inguina l hernias containing fat. The prostate is mildly enlarged. There are no dilated loops of bowel. The a ppendix is not visualized. There are no pathologically enlarged lymph nodes. There is no free intrape ritoneal fluid. There is severe lumbar spondylosis. IMPRESSION: 1. Normal spleen. Reviewed, dictated and finalized at location A. IMPRESSION: 1. Normal spleen.
== END 2021-11-12 12:30 | disposition home or self-care (01) ==
LOC: ANHIMG 12:31
PROVIDERS: PCP Family Medicine; Visit Provider Internal Medicine Hematology & Oncology
DX: R16.1 Splenomegaly, not elsewhere classified (principal); M47.816 Spondylosis without myelopathy or radiculopathy, lumbar region; K40.90 Unilateral inguinal hernia, without obstruction or gangrene, not specified as recurrent; N40.0 Benign prostatic hyperplasia without lower urinary tract symptoms
CPT/HCPCS: 74177; Q9967

== ENCOUNTER 2022-02-03 11:32 | Outpatient (CLI) | payer MEDICARE, SELFPAY ==
[2022-02-03 20:20] LABS: Thyroid Stimulating Hormone 0.031 uIU/mL (0.465-4.680)
== END 2022-02-03 11:33 | disposition home or self-care (01) ==
PROVIDERS: PCP Family Medicine; Visit Provider Family Medicine
DX: E03.9 Hypothyroidism, unspecified (principal)
CPT/HCPCS: 36415; 84443

== ENCOUNTER 2022-04-09 12:22 | Emergency (ER) | payer MEDICARE, SELFPAY ==
--- NOTE | ~2022-04-09 | CT_ITS ---
EXAMINATION: CT chest abdomen pelvis w con DATE: 04/09/2022 15:26 INDICATION: Back and rib pain after fall TECHNIQUE: Transaxial computed tomographic images of the chest, abdomen, and pelvis were obtained aft er the administration of 100 cc of Omnipaque 350 intravenous contrast. The dose-length product (DLP) was 560.70 mGy-cm. Automated exposure control and iterative reconstruction technique were employed. COMPARISON: 11/12/2021 FINDINGS: CHEST CT: There is moderate emphysema. There is a 3 mm nodule of the right upper lobe. No pleural effusion or p neumothorax. No pathologically enlarged thoracic lymph nodes are identified. The heart size is normal . There are changes of aortic valve replacement. There is a nondisplaced posterior fracture left 11th rib. There is moderate thoracic spondylosis and severe lower cervical spondylosis. ABDOMEN/PELVIS CT: The liver, spleen, pancreas, gallbladder, and adrenal glands are normal. The kidneys are unremarkable . There is calcified atherosclerosis of the aorta and many of the other arteries. There is severe vineet nosis of the femoral arteries. A retroaortic left renal vein is noted. No pathologically enlarged abd ominal or pelvic lymph nodes are identified. There is no free intraperitoneal gas or evidence of diego l obstruction. There is severe lumbar spondylosis. IMPRESSION: 1. Nondisplaced acute fracture of the posterior left 11th rib. 2. Moderate emphysema. 3. 3 mm right upper lobe nodule. Consider follow-up chest CT in 12 months. Reviewed, dictated and finalized at location A.
[2022-04-09 12:23] VITALS: BP 156/77; PULSE 107; RESP 18; TEMP 36.4; O2SAT 100
--- NOTE | 2022-04-09 13:39 | ED.BACK ---
HPI - Back Pain/Injury General Chief Complaint: Back Pain/Injury Stated Complaint: back pain Time Seen by Provider: 04/09/22 12:52 Source: patient Mode of arrival: ambulatory Limitations: no limitations History of Present Illness HPI Narrative: This is a 72-year-old male that presents emergency department for left-sided back pain after an injury 3 days ago. Reports he was trying to move his lawnmower into his garage. He lost his balance and fell backwards. He hit his back on a pole in the garage. Denies hitting his head or loss of consciousness. Reports since he has had left sided mid back pain. Worse with movement and relieved with rest. Reports he is having spasms of the area. Denies decreased range of motion or numbness. Related Data Home Medications Medication Instructions Recorded Confirmed coenzyme Q10 100 mg capsule (Co 100 mg PO DAILY 11/12/20 09/03/21 Q-10) docusate sodium 100 mg capsule 100 mg PO DAILY 01/09/21 09/03/21 (Colace) spironolactone 25 mg tablet 25 mg PO DAILY 01/09/21 09/03/21 carvedilol 3.125 mg tablet (Coreg) 3.125 mg PO BID 02/02/21 09/03/21 losartan 25 mg tablet 25 mg PO DAILY 02/02/21 09/03/21 Allergies Allergy/AdvReac Type Severity Reaction Status Date / Time No Known Allergies Allergy Verified 11/12/20 17:28 Review of Systems Review of Systems: CONSTITUTIONAL: Denies fever GASTROINTESTINAL: Denies abdominal pain, nausea, vomiting MUSCULOSKELETAL: Reports back pain, joint pain, and myalgia. NEUROLOGIC: Denies numbness, or weakness. All systems reviewed & are unremarkable except as noted in HPI and below [facility] Past Medical History Medical History Bradycardia Dyslipidemia Hyperglycemia Hypothyroidism, unspecified Pulmonary emphysema Syncope and collapse Longstanding recurrent syncope, Probably vasovagal with a cardio inhibitory component Family History Family History Grandparent Family history of congestive heart failure Mother Family history of Alzheimer's disease Social History Social History Social History: , retired [place]. Smoking packs per day: 0.5 Smoking cigarettes per day: 10.0 Years smoked: 20 Smoking pack-years: 10.00 Smoking status: Former smoker Tobacco type: cigarettes Second hand tobacco smoke exposure: No Alcohol intake: former Drinks per week: 1 Substance use: never Substance use type: does not use Gender identity (if verbalized by the patient): Male Sexual Orientation (if Verbalized by the Patient): Straight or Heterosexual Spiritual care concerns: No Exam Narrative: GENERAL: Well-appearing, well-nourished, and in no acute distress. HEAD: Normocephalic, atraumatic. EYES: PERRLA and EOMI. ENT: Nares clear, no rhinorrhea or epistaxis. Mucous membranes moist. Oropharynx without tonsillar hypertrophy exudate or other lesions. Bilateral TMs pearly coleman non-bulging NECK: Supple. No adenopathy or masses. CHEST: Clear to auscultation. No respiratory distress. No wheezes rales or rhonchi HEART: Regular rate and rhythm. No murmur heard. Normal peripheral pulses. ABDOMEN: Soft, nontender, nondistended, normal active bowel sounds. BACK: Tender to palpation to the left, lower, lateral ribs. No midline spinal tenderness EXTREMITIES: Normal range of motion. No edema. SKIN: Warm, dry, no rash. NEURO: No focal deficits. Alert and oriented x3. Cranial nerves II through XII grossly intact PSYCH: Normal mood and affect Course Vital Signs Vital signs: Vital Signs Temperature 97.6 F 04/09/22 12:23 Pulse Rate 107 H 04/09/22 12:23 Respiratory Rate 18 04/09/22 12:23 Blood Pressure 156/77 H 04/09/22 12:23 Pulse Oximetry 100 04/09/22 12:23 Temperature 97.6 F 04/09/22 12:23 Pulse Rate 107 H 04/09/22 12:23 Respiratory Rate 18 04/09/22 12
[2022-04-09] MEDS: CYCLOBENZAPRINE HCL 10 MG TABLET PO (13:44)
[2022-04-09 14:08] LABS: Basophils Absolute Auto 0.1 K/mm3 (0.0-0.1); Basophils Percent Auto 0.7 % (0.2-1.2); Eosinophils Absolute Auto 0.1 K/mm3 (0-0.3); Eosinophils Percent Auto 1.7 % (0-4.4); Hematocrit 42.1 % (42.0-52.0); Hemoglobin 14.2 g/dL (14.0-18.0); Immature Granulocyte Absolute 0.03 K/mm3 (0.00-0.031); Immature Granulocyte Percent A 0.4 % (0-0.5); Lymphocytes Absolute Auto 2.17 K/mm3 (0.9-3.2); Mean Corpuscular HGB Conc 33.7 g/dl (32-36); Mean Corpuscular Hemoglobin 34.6 pg (26-34); Mean Corpuscular Volume 102.7 fl (80-100); Mean Platelet Volume 9.2 fl (7.4-10.4); Monocytes Absolute Auto 0.6 K/mm3 (0.1-0.6); Monocytes Percent Auto 8.6 % (2.6-8.5); Neutrophils Percent Auto 57.6 % (45.5-73.1); Platelet Count Result 204 k/mm3 (150-375); Red Cell Distribution Width 13.4 % (11.5-14.5)
[2022-04-09 14:18] LABS: Alanine Aminotransferase 27 U/L (6-50); Albumin Level 4.5 g/dL (3.5-5.1); Alkaline Phosphatase 58 U/L (38-126); Anion Gap 11 mmol/L (8-16); Aspartate Amino Transferase 41 U/L (17-59); Bilirubin,Total 0.6 mg/dL (0.2-1.3); Blood Urea Nitrogen 17 mg/dL (9-20); Calcium 9.8 mg/dL (8.4-10.2); Carbon Dioxide 23 mmol/L (22-30); Chloride 102 mmol/L (98-107); Estimated Glomerular Filt Rate 50; Glucose 104 mg/dL (65-110); Potassium 4.5 mmol/L (3.4-5.0); Sodium 136 mmol/L (137-145)
[2022-04-09 14:19] LABS: Prothrombin Time 12.5 Seconds (11.1-14.7)
[2022-04-09 16:19] VITALS: BP 142/78; PULSE 70; RESP 16; O2SAT 99
== END 2022-04-09 16:20 | disposition home or self-care (01) ==
PROVIDERS: Physician Assistant; Emergency Provider Emergency Medicine; PCP Family Medicine
DX: S22.32XA Fracture of one rib, left side, initial encounter for closed fracture (principal); R91.1 Solitary pulmonary nodule; E78.5 Hyperlipidemia, unspecified; E03.9 Hypothyroidism, unspecified; J43.9 Emphysema, unspecified; Z87.891 Personal history of nicotine dependence; W01.198A Fall on same level from slipping, tripping and stumbling with subsequent striking against other object, initial encounter
CPT/HCPCS: 36415; 71260; 74177; 80053; 85025; 85610; 85730; 99284; A9270; Q9967

== ENCOUNTER 2022-05-12 14:51 | Outpatient (CLI) | payer MEDICARE, SELFPAY ==
[2022-05-12 19:48] LABS: Free T4 Free Thyroxine 2.07 ng/mL (0.78-2.19)
[2022-05-16 03:35] LABS: Triiodothyronine T3 Free 2.3 pg/mL (2.3-4.2)
== END 2022-05-12 14:52 | disposition home or self-care (01) ==
PROVIDERS: PCP Family Medicine; Visit Provider Family Medicine
DX: E03.9 Hypothyroidism, unspecified (principal)
CPT/HCPCS: 36415; 84439; 84443; 84481

== ENCOUNTER 2022-05-24 11:19 | Outpatient (CLI) | payer MEDICARE, SELFPAY ==
[2022-05-24 11:54] LABS: Basophils Absolute Auto 0.1 K/mm3 (0.0-0.1); Basophils Percent Auto 0.8 % (0.2-1.2); Eosinophils Absolute Auto 0.1 K/mm3 (0-0.3); Eosinophils Percent Auto 1.9 % (0-4.4); Hematocrit 39.3 % (42.0-52.0); Hemoglobin 13.5 g/dL (14.0-18.0); Immature Granulocyte Absolute 0.03 K/mm3 (0.00-0.031); Immature Granulocyte Percent A 0.5 % (0-0.5); Lymphocytes Absolute Auto 2.33 K/mm3 (0.9-3.2); Mean Corpuscular HGB Conc 34.4 g/dl (32-36); Mean Corpuscular Hemoglobin 34.4 pg (26-34); Mean Platelet Volume 8.9 fl (7.4-10.4); Monocytes Absolute Auto 0.7 K/mm3 (0.1-0.6); Monocytes Percent Auto 10.7 % (2.6-8.5); Neutrophils Absolute Auto 3.1 K/mm3 (1.3-6.7); Neutrophils Percent Auto 49.1 % (45.5-73.1); Platelet Count Result 166 k/mm3 (150-375); Red Blood Count 3.93 M/mm3 (4.6-6.20); Red Cell Distribution Width 12.9 % (11.5-14.5); White Blood Count 6.3 K/mm3 (4.5-10.0)
[2022-05-24 11:58] LABS: Blood Urea Nitrogen 23 mg/dL (8-26); Carbon Dioxide 28 mmol/L (22-30); Chloride 101 mmol/L (98-109); Estimated Glomerular Filt Rate 33; Glucose 113 mg/dL (70-105); Potassium 4.5 mmol/L (3.5-4.9); Sodium 140 mmol/L (138-146)
== END 2022-05-24 11:20 | disposition home or self-care (01) ==
PROVIDERS: PCP Family Medicine; Visit Provider Internal Medicine Hematology & Oncology
DX: D61.818 Other pancytopenia (principal)
CPT/HCPCS: 36415; 80047; 85025

== ENCOUNTER 2022-07-07 13:25 | Outpatient (CLI) | payer MEDICARE, SELFPAY ==
[2022-07-07 19:11] LABS: Thyroid Stimulating Hormone 0.226 uIU/mL (0.465-4.680)
== END 2022-07-07 13:26 | disposition home or self-care (01) ==
PROVIDERS: PCP Family Medicine; Visit Provider Family Medicine
DX: E03.9 Hypothyroidism, unspecified (principal)
CPT/HCPCS: 36415; 84443

== ENCOUNTER 2022-08-18 15:44 | Outpatient (CLI) | payer MEDICARE, SELFPAY ==
[2022-08-18 21:00] LABS: Anion Gap 6 mmol/L (8-16); Blood Urea Nitrogen 26 mg/dL (9-20); Calcium 8.5 mg/dL (8.4-10.2); Carbon Dioxide 30 mmol/L (22-30); Chloride 102 mmol/L (98-107); Estimated Glomerular Filt Rate 40; Glucose 113 mg/dL (65-110); Potassium 3.9 mmol/L (3.4-5.0); Sodium 138 mmol/L (137-145)
[2022-08-18 21:11] LABS: Appearance Urine Clear (Clear); Bilirubin Urine Negative (Negative); Blood Urine Trace-intact (Negative); Color Urine Yellow (Yellow); Glucose Urine UA Negative (Negative); Ketones Urine Negative (Negative); Leukocyte Esterase Ur Negative LEU/UL (NEGATIVE); Nitrate Urine Negative (Negative); Protein Urine Negative (Negative); Specific Grav Ur <= 1.005 (1.001-1.035); Urobilinogen Urine 0.2 mg/dL (<2.0); pH Urine 5.5 (5.0-9.0)
[2022-08-18 21:17] LABS: Thyroid Stimulating Hormone 0.855 uIU/mL (0.465-4.680)
[2022-08-18 21:23] LABS: RBC Urine 0-2 /hpf (0-2); Squamous Epithelial Cell Urine Rare /hpf (Few); WBC Urine 0-3 /hpf (0-3)
[2022-08-18 21:32] LABS: Add Urine Microscopic? YES
== END 2022-08-18 15:45 | disposition home or self-care (01) ==
PROVIDERS: PCP Family Medicine; Visit Provider Family Medicine
DX: E03.9 Hypothyroidism, unspecified (principal); N18.9 Chronic kidney disease, unspecified
CPT/HCPCS: 36415; 80048; 81001; 84443

== ENCOUNTER 2022-09-15 14:51 | Outpatient (CLI) | payer MEDICARE, SELFPAY ==
--- NOTE | ~2022-09-15 | CT_ITS ---
EXAMINATION: CT brain wo con DATE: 09/15/2022 15:03 INDICATION: Memory loss TECHNIQUE: Computed tomography (CT) of the head was performed without intravenous contrast. The mA wa s adjusted according to patient size. Iterative reconstruction technique was employed. Exam dose: 60 5.33 mGy-cm total exam DLP. COMPARISON: None FINDINGS: There is cerebellar and central and cortical cerebral moderately prominent atrophy. No intracranial mass lesion or hemorrhage or cerebrovascular accident, midline shift or mass effect. Prominent bilateral carotid siphon internal carotid artery calcifications. There is nonspecific dimin ished attenuation of the cerebral white matter, likely due to chronic small vessel ischemic changes. No subdural or epidural hematoma. The included mastoid air cells and paranasal sinuses are normally developed and aerated. No fracture or bone destruction of the cranial vault. IMPRESSION: Moderately prominent central and cortical cerebral and cerebellar atrophy Cerebral atherosclerosis and chronic small vessel ischemic changes of cerebral white matter No acute intracranial finding Reviewed, dictated and finalized at Location [facility]. Reviewed, dictated and finalized at location B. RICT REPRESENTATIVE
== END 2022-09-15 14:52 | disposition home or self-care (01) ==
LOC: ANHIMG 14:52
PROVIDERS: PCP Family Medicine; Visit Provider Family Medicine
DX: R41.3 Other amnesia (principal); I67.2 Cerebral atherosclerosis
CPT/HCPCS: 70450

== ENCOUNTER 2022-11-28 11:26 | Inpatient (IN) | payer MEDICARE, SELFPAY ==
[2022-11-28] VITALS (12 sets, daily range): BP systolic 124–165; BP diastolic 58–85; PULSE 79–99; RESP 16–19; TEMP 36.4–36.9; O2SAT 96–100; BMI 24.3
--- NOTE | ~2022-11-28 | CT_ITS ---
EXAMINATION: CTA chest PE protocol DATE: 11/28/2022 13:29 INDICATION: Transient alteration of awareness TECHNIQUE: Computed tomography angiography (CTA) of the chest was performed with 100 mL Omnipaque-350 intravenous contrast timed to evaluate the pulmonary arteries. Coronal maximum intensity projection 3D-reconstructions were created by the technologist. The dose-length product (DLP) was 419.51 mGy-cm. Automated exposure control and iterative reconstruction technique were employed. COMPARISON: 04/09/2022 FINDINGS: The pulmonary arteries are well-opacified. No pulmonary embolism is identified. There is mo derate emphysema. There are stable nodules of the right upper lobe. No pleural effusion or pneumothor ax. The lungs are free of acute opacities. There are changes of aortic valve replacement and coronary artery bypass grafting. No pathologically enlarged thoracic lymph nodes are identified. The heart si ze is normal. There is moderate thoracic spondylosis. There are partially imaged changes of posterior thoracolumbar fusion. There is a T12 burst fracture. IMPRESSION: 1. No pulmonary embolism or acute cardiopulmonary abnormality. 2. Moderate emphysema. Reviewed, dictated and finalized at location A.
--- NOTE | ~2022-11-28 | MR_ITS ---
EXAMINATION: MR brain/brain stem wo con DATE: 11/29/2022 14:40 INDICATION: altered mental status, recurrent syncope. TECHNIQUE: Magnetic resonance imaging (MRI) of the brain and brainstem was performed without intraven ous contrast. Sequences included sagittal and axial T1-weighted SE, axial diffusion-weighted FS EPI A SSET, axial T2*-weighted GRE, axial T2-weighted FLAIR Propeller, and axial T2-weighted Propeller. Pos tcontrast axial and coronal T1-weighted SE was obtained. Apparent diffusion coefficient (ADC) maps we re created. COMPARISON: CT brain 11/28/2022 FINDINGS: No abnormal restricted diffusion to suggest acute ischemic infarct. No MRI evidence of hemorrhage or extra-axial collection. Punctate focus of susceptibility in the left parietal lobe, nonspecific but m ost likely reflective of prior microhemorrhage or calcification. Scattered foci of white matter hyper intensity, likely representing mild small vessel ischemic disease. Mild generalized parenchymal volum e loss. The basilar cisterns are patent. Flow voids are preserved. Paranasal sinuses are within mike l limits. Globes and orbital contents are within normal limits. IMPRESSION: 1. No acute intracranial process. Reviewed, dictated and finalized at location K.
--- NOTE | ~2022-11-28 | XR_ITS ---
EXAMINATION: XR chest 1V portable INDICATION: Transient alteration of awareness TECHNIQUE: Portable AP chest at 1224 hours COMPARISON: 11/12/2020 FINDINGS: The lungs are free of acute opacities. No pleural effusion or pneumothorax. The heart size is normal. There are changes of interval cardiac surgery and spinal fusion. IMPRESSION: 1. No acute cardiopulmonary abnormality. Reviewed, dictated and finalized at location A.
--- NOTE | ~2022-11-28 | XR_ITS ---
XR chest 2V 12/01/2022 11:51 Indication: 24 hours post pacemaker insertion Procedure: AP and lateral views the chest Comparison: Comparison to multiple prior studies sequentially, with oldest reviewed study dated 04/06. Findings: Heart size normal. Pacemaker leads are stable in the right atrium and right ventricle. Ther e is a prosthetic aortic valve. There are spinal fusion changes of the lower thoracic spine. No focal air space disease, pulmonary edema, pleural effusion or suspected pneumothorax. Impression: 1: No acute cardiopulmonary disease. Reviewed, dictated and finalized at location B. Impression: 1: No acute cardiopulmonary disease.
--- NOTE | ~2022-11-28 | US_ITS ---
EXAMINATION: US carotid duplex BI DATE: 11/29/2022 15:08 INDICATION: Altered mental status. Syncope. TECHNIQUE: Grayscale, color Doppler, and pulsed Doppler images of the cervical carotid arteries were obtained. The degree of vessel stenosis is placed in one of the following categories: normal, <50%, 5 0-69%, >=70% but less than near-occlusion, near-occlusion, or total occlusion. Note that percent sten osis relative to normal distal artery lumen diameter is indirectly measured from velocity measurement s as described by Jay, et al. Radiology 2003; [id number]. COMPARISON: 11/13/2020 FINDINGS: RIGHT: The right common carotid artery (CCA) peak systolic velocity (PSV) is 104 cm/s. The right internal ca rotid artery (ICA) PSV is 127 cm/s. The right ICA end-diastolic velocity (EDV) is 35 cm/s. Both the P SV and EDV of the right internal carotid artery are likely slightly overestimated due to overestimati on of the degree of angle correction. The right ICA/CCA PSV ratio is mild. Grayscale and color Dopple r images yield an estimate of <50% diameter reduction from plaque in the ICA. The external carotid ar leana (ECA) PSV is 110 cm/s. There is antegrade flow in the right vertebral artery. LEFT: The left CCA PSV is 111 cm/s. The left ICA PSV is 106 cm/s. The left ICA EDV is 37 cm/s. The left ICA /CCA PSV ratio is 1.0. Grayscale and color Doppler images yield an estimate of <50% diameter reductio n from plaque in the ICA. The ECA PSV is 103 cm/s. There is antegrade flow in the left vertebral bharti ry. IMPRESSION: 1. <50% stenosis in the right internal carotid artery. 2. <50% stenosis in the left internal carotid artery. Reviewed, dictated and finalized at location A.
--- NOTE | ~2022-11-28 | XR_ITS ---
XR chest 1V portable 11/30/2022 13:22 Indication: Pacemaker insertion Procedure: AP portable chest Comparison: 11/28/2022 Findings: Status post median sternotomy. There is prosthetic aortic valve. Pacemaker leads are in exp ected position. No focal air space disease, pulmonary edema, pleural effusion or suspected pneumothor ax. Impression: 1: No acute cardiopulmonary disease. Reviewed, dictated and finalized at location L. Impression: 1: No acute cardiopulmonary disease.
--- NOTE | ~2022-11-28 | CT_ITS ---
EXAMINATION: CT brain wo con INDICATION: Transient alteration of awareness COMPARISON: 09/15/2022 TECHNIQUE: Standard unenhanced head CT. The dose-length product (DLP) was 605.33 mGy-cm. The mA was a djusted according to patient size. Iterative reconstruction technique was employed. FINDINGS: There is no acute intraparenchymal hemorrhage. No evidence of mass lesion. No evidence of a cute infarction. There is mild periventricular and subcortical hypodensity probably related to small vessel ischemic disease. There is mild prominence of the sulci and ventricles related to cerebral atr ophy. Intracranial calcified cerebral atherosclerosis is noted. There are no extra-axial collections. There is no mass effect or midline shift. The orbits and soft tissues are unremarkable. The visualiz ed sinuses and mastoid air cells are well aerated. IMPRESSION: 1. No acute intracranial abnormality. 2. Age related findings. Reviewed, dictated and finalized at location A.
--- NOTE | 2022-11-28 11:28 | ECG_ITS ---
Measurements Intervals Dorothy Rate: 86 P: 72 VT: 199 QRS: 48 QRSD: 133 T: 59 QT: 363 QTc: 436 Interpretive Statements SINUS RHYTHM INTRAVENTRICULAR CONDUCTION DELAY CANNOT RULE OUT SEPTAL INFARCT, AGE INDETERMINATE CONSIDER HIGH LATERAL INFARCT, AGE INDETERMINATE BORDERLINE ST-T WAVE ABNORMALITY- LATERAL LEADS BASELINE WANDER- I, II ABNORMAL ECG COMPARED TO ECG 11/12/2020 17:27:40 SINUS RHYTHM NOW PRESENT INTRAVENTRICULAR CONDUCTION DELAY NOW PRESENT Electronically Signed On 11-28-2022 21:55:07 CDT by Tristan Cheng D.O.
[2022-11-28 11:41] LABS: Basophils Absolute Auto 0.1 K/mm3 (0.0-0.1); Basophils Percent Auto 0.8 % (0.2-1.2); Eosinophils Absolute Auto 0.2 K/mm3 (0-0.3); Eosinophils Percent Auto 3.3 % (0-4.4); Hematocrit 33.8 % (42.0-52.0); Hemoglobin 11.2 g/dL (14.0-18.0); Immature Granulocyte Absolute 0.02 K/mm3 (0.00-0.031); Immature Granulocyte Percent A 0.3 % (0-0.5); Lymphocytes Absolute Auto 1.88 K/mm3 (0.9-3.2); Lymphocytes Percent Auto 31.2 % (18.3-44.2); Mean Corpuscular HGB Conc 33.1 g/dl (32-36); Mean Corpuscular Hemoglobin 33.6 pg (26-34); Mean Corpuscular Volume 101.5 fl (80-100); Mean Platelet Volume 9.2 fl (7.4-10.4); Monocytes Absolute Auto 0.7 K/mm3 (0.1-0.6); Monocytes Percent Auto 10.8 % (2.6-8.5); Neutrophils Absolute Auto 3.2 K/mm3 (1.3-6.7); Neutrophils Percent Auto 53.6 % (45.5-73.1); Platelet Count Result 211 k/mm3 (150-375); Red Blood Count 3.33 M/mm3 (4.6-6.20); Red Cell Distribution Width 13.1 % (11.5-14.5)
[2022-11-28 11:54] LABS: Alanine Aminotransferase 21 U/L (6-50); Albumin Level 4.1 g/dL (3.5-5.1); Alkaline Phosphatase 65 U/L (38-126); Anion Gap 6 mmol/L (8-16); Aspartate Amino Transferase 38 U/L (17-59); Bilirubin,Total 0.4 mg/dL (0.2-1.3); Blood Urea Nitrogen 23 mg/dL (9-20); Carbon Dioxide 29 mmol/L (22-30); Chloride 103 mmol/L (98-107); Estimated CRCL calculation 33 ml/min; Estimated Glomerular Filt Rate 42; Glucose 98 mg/dL (65-110); Potassium 3.9 mmol/L (3.4-5.0); Sodium 138 mmol/L (137-145)
[2022-11-28 12:47] LABS: Magnesium 2.3 mg/dL (1.6-2.3)
[2022-11-28 12:48] LABS: Appearance Urine Clear (Clear); Bilirubin Urine Negative (Negative); Blood Urine Negative (Negative); Color Urine Yellow (Yellow); Glucose Urine UA Negative (Negative); Ketones Urine Negative (Negative); Leukocyte Esterase Ur Negative LEU/UL (Negative); Nitrate Urine Negative (Negative); Protein Urine Negative (Negative); Specific Grav Ur 1.011 (1.001-1.035); Urobilinogen Urine 0.2 mg/dL (<2.0); pH Urine 6.5 (5.0-9.0)
[2022-11-28 12:50] LABS: Add Urine Microscopic? NO
[2022-11-28 12:51] LABS: INR 1.1; Prothrombin Time 14.3 Seconds (11.1-14.7)
[2022-11-28 12:52] LABS: Partial Thromboplastin Time 28.2 SECONDS (22.3-36.8)
--- NOTE | 2022-11-28 13:05 | ED.SYNCOPE ---
HPI - Syncope General Chief Complaint: Syncope Stated Complaint: syncopy Time Seen by Provider: 11/28/22 11:48 Source: patient, EMS, RN notes reviewed and old records reviewed Mode of arrival: EMS Limitations: dementia History of Present Illness HPI narrative: THis is a 72 year old male with history of aortic valve repair, hypertension, hypothyroid who presents from home for evaluation of syncopal episode. His states he has had 3 episodes of syncope since November 18. Patient states that during these episodes he gets nauseated with bad taste in his mouth and he passes out. His states yesterday patient felt like he was going to pass out so he called out to her. She went to check on him, and he slumped over unresponsive for 30 seconds. Patient states this happened to her recently causing him to break his back. He states he had an episode just prior to arrival. He denies chest pain, shortness of breath or palpitations. His web marketing intern is Dr. Baumann. Related Data Home Medications Medication Instructions Recorded Confirmed coenzyme Q10 100 mg capsule (Co 100 mg PO DAILY 11/12/20 11/28/22 Q-10) carvedilol 3.125 mg tablet (Coreg) 3.125 mg PO BID 02/02/21 11/28/22 cyclobenzaprine 10 mg tablet 10 mg PO TID 11/28/22 11/28/22 Allergies Allergy/AdvReac Type Severity Reaction Status Date / Time No Known Allergies Allergy Verified 11/28/22 11:37 Review of Systems Constitutional: Constitutional: Denies weakness Cardiovascular: Cardiovascular: Reports syncope, Denies rapid heart rate, Denies irregular heart rhythm, Denies leg edema and Denies dyspnea Respiratory: Respiratory: Denies chest congestion, Denies hemoptysis, Denies excessive phlegm production and Denies dyspnea Gastrointestinal: Gastrointestinal: Denies abdominal pain, Denies hematochezia, Denies diarrhea, Reports nausea and Denies vomiting Genitourinary: Genitourinary: Denies hematuria, Denies dysuria, Denies penile discharge and Denies testicular pain Musculoskeletal: Musculoskeletal: Denies joint swelling, Denies loss of height and Denies muscle weakness Integumentary/Breasts: Skin/Breast: Reports rash Neurologic: Denies syncope, Denies focal weakness and Denies weakness COUNT INCLUDES THE [facility] Past Medical History Medical History (Updated 11/28/22 @ 21:31 by Libby Unger MD) Coronary artery disease Dyslipidemia Hypertension Hypothyroidism Ischemic cardiomyopathy Pulmonary emphysema Syncope and collapse Longstanding recurrent syncope, probably vasovagal with a cardioinhibitory component. T12 burst fracture (10/2022) Surgical History Surgical History (Updated 11/28/22 @ 15:18 by Malika Price PA-C) History of aortic valve replacement (11/2020) History of coronary artery bypass graft (11/2020) History of spinal surgery (10/19/22) T11-L1 percutaneous pedicle screw fixation. Family History Family History Grandparent Family history of congestive heart failure Mother Family history of Alzheimer's disease Social History Social History (Updated 11/28/22 @ 15:19 by Malika Price PA-C) Social History: Surrogate medical decision maker: Soniya Connor, spouse. Code status: Full code. Smoking packs per day: 0.5 Smoking cigarettes per day: 10.0 Years smoked: 40 Smoking pack-years: 20.00 Smoking status: Former smoker Tobacco type: cigarettes Second hand tobacco smoke exposure: No Alcohol intake: never Drinks per week: 1 Substance use: never Substance use type: does not use Lack of Transportation: No Lack of Food: Never True Current Housing: I Have Housing Concerned About Future Housing: No Difficulty Paying Gas/Electric Bills: No Difficulty Paying for Meds: No Currently Unemployed: No Education: Trade/Vocational Certificate Difficulty w/ Childcare or Family Care: No Additional living arrangements comments: . Additional occupation/
--- NOTE | 2022-11-28 15:10 | PM.IMHP ---
H&P: HPI History of Present Illness Date/Time: 11/28/22 16:00 Chief Complaint: Syncope. Narrative: This is a very pleasant 72-year-old male with history of coronary artery disease status post CABG, aortic valve replacement, ischemic cardiomyopathy, hypertension, dyslipidemia, chronic kidney disease, and hypothyroidism who presented to the emergency department via EMS from home for evaluation of several syncopal episodes. He has a history of syncope dating back to May 2018 at which time he wore a 48 hour Holter monitor showing underlying sinus rhythm, no sinoatrial or atrioventricular blocks, and no significant pauses greater than 2 seconds. He has continued to have episodes over the years which have been attributed to vasovagal syncope with some cardioinhibitory component. Just last month he had a syncopal episode in which he sustained a T12 burst fracture requiring surgical fixation at [place]. He has been doing pretty well in that regard but does complain of skin irritation from his TLSO brace. In any event he has apparently had 3 syncopal episodes since November 18. The patient describes feelings of nausea and a bad taste in his mouth prior to these episodes at sounds as though he loses consciousness quite quickly thereafter. He had an episode yesterday and once again today he felt as though he was going to pass out, he called for his , and she found him slumped over in a chair and he was reportedly unresponsive for 30 seconds. His bartender helper, Dr. Baumann, has talked him in the past about inserting a loop recorder however he did previously declined as he enjoys welding though he is rethinking not now. He has no current complaints he feels just fine. He denies current lightheadedness, dizziness, vertigo, chest pain, pleuritic pain, palpitations, and shortness of breath. His vital signs have been stable since arrival to the emergency department. CMP and CBC are stable when compared to previous labs. EKG showed a sinus rhythm with intraventricular conduction delay which is new compared to prior tracings. Brain CT showed no acute findings. Chest CTA showed no pulmonary embolism or acute cardiopulmonary abnormality. He is being admitted in this setting for close monitoring on telemetry and Cardiology consultation. Review of Systems Review of Systems: Twelve systems were reviewed and are negative except for as per HPI. [facility] Past Medical History Medical History (Updated 11/28/22 @ 23:16 by Malika Price PA-C) Chronic kidney disease Coronary artery disease Dyslipidemia Hypertension Hypothyroidism Ischemic cardiomyopathy Pulmonary emphysema Syncope and collapse Longstanding recurrent syncope, probably vasovagal with a cardioinhibitory component. T12 burst fracture (10/2022) Surgical History Surgical History (Updated 11/28/22 @ 15:18 by Malika Price PA-C) History of aortic valve replacement (11/2020) History of coronary artery bypass graft (11/2020) History of spinal surgery (10/19/22) T11-L1 percutaneous pedicle screw fixation. Family History Family History Grandparent Family history of congestive heart failure Mother Family history of Alzheimer's disease Social History Social History (Updated 11/28/22 @ 15:19 by Malika Price PA-C) Social History: Surrogate medical decision maker: Soniya Connor, spouse. Code status: Full code. Smoking packs per day: 0.5 Smoking cigarettes per day: 10.0 Years smoked: 40 Smoking pack-years: 20.00 Smoking status: Former smoker Tobacco type: cigarettes Second hand tobacco smoke exposure: No Alcohol intake: never Drinks per week: 1 Substance use: never Substance use type: does not use Lack of Transportation: No Lack of Food: Never True Current Housing: I Have Housing Concerned About Future Housing: No Difficulty Paying Gas/Electric Bills: No Difficulty Paying for Meds: No Cu
--- NOTE | 2022-11-28 16:12 | PC.NURSE ---
This patient, Eric Connor, was admitted to 2 Medical Room 258-. Patient/family oriented to hospital policies and general routines including ID bracelet, bed and alarms, visiting hours, pain management, procedures, bathroom and other care routines, personal items, smoking policy, room service/diet, and visiting hours. Information on how to activate the Rapid Response Team has been discussed. Patient/Family are encouraged to report perceived risks to care and to ask questions if they do not understand what they are told or what they should do.
[2022-11-28] MEDS: carvediloL 3.125 MG TABLET PO (23:41)
[2022-11-28] MEDS: DONEPEZIL HCL 10 MG TABLET PO (23:41)
[2022-11-29] VITALS (20 sets, daily range): BP systolic 94–140; BP diastolic 57–76; PULSE 73–125; RESP 18–20; TEMP 36.4–36.8; O2SAT 97–100
[2022-11-29] MEDS: LEVOTHYROXINE SODIUM 100 MCG TABLET PO (05:35)
[2022-11-29 05:39] LABS: Basophils Absolute Auto 0.1 K/mm3 (0.0-0.1); Eosinophils Absolute Auto 0.2 K/mm3 (0-0.3); Hematocrit 33.7 % (42.0-52.0); Hemoglobin 11.2 g/dL (14.0-18.0); Immature Granulocyte Absolute 0.02 K/mm3 (0.00-0.031); Immature Granulocyte Percent A 0.4 % (0-0.5); Lymphocytes Absolute Auto 1.75 K/mm3 (0.9-3.2); Lymphocytes Percent Auto 35.1 % (18.3-44.2); Mean Corpuscular HGB Conc 33.2 g/dl (32-36); Mean Corpuscular Hemoglobin 33.5 pg (26-34); Mean Corpuscular Volume 100.9 fl (80-100); Mean Platelet Volume 9.1 fl (7.4-10.4); Monocytes Absolute Auto 0.5 K/mm3 (0.1-0.6); Monocytes Percent Auto 10.4 % (2.6-8.5); Neutrophils Absolute Auto 2.4 K/mm3 (1.3-6.7); Neutrophils Percent Auto 49.1 % (45.5-73.1); Platelet Count Result 203 k/mm3 (150-375); Red Blood Count 3.34 M/mm3 (4.6-6.20); Red Cell Distribution Width 13.2 % (11.5-14.5)
[2022-11-29 06:02] LABS: Alanine Aminotransferase 19 U/L (6-50); Albumin Level 3.8 g/dL (3.5-5.1); Alkaline Phosphatase 67 U/L (38-126); Anion Gap 6 mmol/L (8-16); Aspartate Amino Transferase 34 U/L (17-59); Bilirubin,Total 0.5 mg/dL (0.2-1.3); Blood Urea Nitrogen 20 mg/dL (9-20); Calcium 8.6 mg/dL (8.4-10.2); Carbon Dioxide 26 mmol/L (22-30); Chloride 105 mmol/L (98-107); Estimated CRCL calculation 33 ml/min; Estimated Glomerular Filt Rate 42; Glucose 100 mg/dL (65-110); Magnesium 2.2 mg/dL (1.6-2.3); Potassium 3.8 mmol/L (3.4-5.0); Sodium 137 mmol/L (137-145)
--- NOTE | 2022-11-29 07:51 | PM.IMPN ---
Progress Note: A&P Assessment and Plan (1) Recurrent syncope: Code(s): R55 - Syncope and collapse Status: Acute Assessment and Plan: Patient has previously declined a loop recorder but is reconsidering. He has had recurrent syncope dating back to 2018 which so far has been attributed to vasovagal syncope with some component of cardio inhibitory response. Monitor orthostatic vital signs. He will be monitored closely on telemetry overnight. Cardiology has been consulted. 10/23/22 TTE from [place] admission showed mild LAE, mild LVH, mild global LV hypokinesis with apical akinesis, LVEF 47%, paradoxical septal wall motion, grade 1 diastolic dysfunction, well seated bioAVR, trace TR, mild TX, and pulmonary hypertension with PASP 38. Plan for pacemaker placement tomorrow. (2) Ischemic cardiomyopathy: Code(s): I25.5 - Ischemic cardiomyopathy Status: Chronic Assessment and Plan: He is clinically compensated. (3) Coronary artery disease: Qualifiers: Coronary Disease-Associated Artery/Lesion type: [place] artery [place] vs. transplanted heart: [place] heart Associated angina: without angina Qualified Code(s): I25.10 - Atherosclerotic heart disease of [place] coronary artery without angina pectoris Code(s): I25.10 - Atherosclerotic heart disease of [place] coronary artery without angina pectoris Status: Chronic Assessment and Plan: No acute issues. s/p CABG 2020. Continue beta-neptali and statin. (4) Hypertension: Qualifiers: Hypertension type: primary hypertension Qualified Code(s): I10 - Essential (primary) hypertension Code(s): I10 - Essential (primary) hypertension Status: Chronic Assessment and Plan: Blood pressures were reviewed and they have been stable. Continue antihypertensives and monitor. (5) Hypothyroidism: Qualifiers: Hypothyroidism type: unspecified Qualified Code(s): E03.9 - Hypothyroidism, unspecified Code(s): E03.9 - Hypothyroidism, unspecified Status: Chronic Assessment and Plan: TSH within normal limits. Continue levothyroxine. (6) Chronic kidney disease: Qualifiers: Chronic kidney disease stage: stage 3 (moderate) Chronic kidney disease stage 3 subtype: stage 3b (GFR 30-44) Qualified Code(s): N18.32 - Chronic kidney disease, stage 3b Code(s): N18.9 - Chronic kidney disease, unspecified Status: Chronic Assessment and Plan: Appears at baseline. GFR 42 Monitor renal function and I/O Avoid nephrotoxic agents. (7) Systolic and diastolic CHF w/reduced LV function, NYHA class 4: Code(s): I50.40 - Unspecified combined systolic (congestive) and diastolic (congestive) heart failure Status: Chronic Assessment and Plan: Diagnosis prior to CABG. LV function improved per TTE as above. (8) T12 burst fracture: Onset Date: 10/2022 Code(s): S22.081A - Stable burst fracture of T11-T12 vertebra, initial encounter for closed fracture Status: Acute Assessment and Plan: 10/2022 s/p T11-L1 posterior lumbar/thoracic spinal fusion with hardware Continue TLSO brace at all times when out of bed. Hydrocortisone 1% cream BID to dermatitis. (9) Depression: Qualifiers: Depression Type: unspecified Qualified Code(s): F32.A - Depression, unspecified Code(s): F32.A - Depression, unspecified Status: Chronic Assessment and Plan: Chronic, continue Lexapro. (10) Dementia: Qualifiers: Dementia type: unspecified type Code(s): F03.90 - Unspecified dementia, unspecified severity, without behavioral disturbance, psychotic disturbance, mood disturbance, and anxiety Status: Chronic Assessment and Plan: Work up started with PCP, who started donepezil outpatient. Patient has family history of dementia. CT head negative. brain MRI neg
[2022-11-29] MEDS: PRAVASTATIN SODIUM 10 MG TABLET PO (08:19)
[2022-11-29] MEDS: carvediloL 3.125 MG TABLET PO ×2 (08:19→20:36)
[2022-11-29] MEDS: ESCITALOPRAM OXALATE 10 MG TABLET PO (08:19)
[2022-11-29 08:41] LABS: Iron 89 ug/dL (49-181)
[2022-11-29 08:50] LABS: Percent Iron Saturation 34 % (20-50)
[2022-11-29 09:47] LABS: Folic Acid 8.2 ng/mL (2.76->20)
--- NOTE | 2022-11-29 12:47 | PM.CNCAR ---
Assessment and Plan Assessment and plan (1) Recurrent syncope: Code(s): R55 - Syncope and collapse Status: Acute Plan this is a 72-year-old man with a history of coronary disease, aortic valve disease and sick sinus syndrome. He has had syncopal episodes intermittently for about 5 or 6 months. This is accelerating and becoming more frequent. Outpatient Holter monitoring did demonstrate significant pause with indication for pacing couple of months ago. His was discussed with him in the office and at that time he declined treatment. He is doing very well following aortic valve replacement and bypass grafting 2 years ago at [facility]. He has had a very nice return of normal left ventricular systolic function following AVR and revascularization. He now is agreeable to having a pacemaker implanted. I will try to make the arrangements to get this done tomorrow. Jhony Baumann MD [facility] History of Present Illness History of Present Illness Consult date/time: 11/29/22 12:47 Reason For Visit: Multiple Syncopal Episodes Narrative: this is a 72-year-old man I am seeing at the request of the hospitalist because of syncopal episodes. He is known to me from previous outpatient and inpatient care regarding coronary artery disease, valvular heart disease and syncope. The patient was initially seen by me in consultation about 2 years ago with a history of critical aortic valve stenosis. He had seen a licensed club manager elsewhere and had not followed through with recommendations to undergo aortic valve surgery. The patient when he came to [facility] a couple of years ago had profound LV systolic dysfunction, critical aortic stenosis and multiple a vessel coronary artery disease at the time of his diagnosis. He was referred to [facility] for search of surgical treatment and underwent bioprosthetic aortic valve replacement and three-vessel bypass operation and did remarkably well. His left ventricular systolic function essentially normalized. Last summer he had an ejection fraction on echo of 55% and a normally functioning aortic valve bioprosthesis. The patient has been having intermittent syncopal episodes now for approximately 5 or 6 months. The episodes would come and go in an unpredictable manner. Some episodes occurred in a setting that made it suspicious for vasovagal events such as using the toilet. Other episodes occurred very unpredictably. The patient had a Holter monitor done which demonstrated in frequent asystolic pauses of as long as 4 seconds. I saw him in consultation office to discuss this back in October of this year at which time the patient and his were not willing to consider or proceed with a pacemaker implant procedure. Scheduled follow-up this was again recommended. Prior to that office visit he had a syncopal episode with a fall and sustained a thoracic burst fracture in that setting was hospitalized at [place]. In the last 2 weeks he has had 3 more syncopal episodes and he came in again yesterday with these episodes. His electrocardiogram shows sinus rhythm with intraventricular conduction delay and a leftward axis. No pauses have been seen thus far on telemetry since he has been in the hospital. In this setting I am seeing him in consultation he is not having any anginal chest pain denies any orthopnea PND community edema. His daughter who is in the room with him indicates that the family has concerns that the patient has developed dementia which apparently is in the family and they are undergoing neurological consultation for that reason. They have concerns that this might also be contributing to episodes of syncope. Review of Systems Constitutional: Constitutional: Reports lethargy Eyes: Eyes: Reports no additional eye complaints ENT: Reports system reviewed and no additional complaints, except as documented Cardiovascular: Cardiovascular: Reports as per HPI Respirator
[2022-11-29] MEDS: HYDROCORTISONE 1% 30 GM CREAM 1 APPLIC TOPICAL ×2 (15:17→20:36)
[2022-11-29] MEDS: DONEPEZIL HCL 10 MG TABLET PO (20:36)
[2022-11-30] VITALS (27 sets, daily range): BP systolic 109–144; BP diastolic 55–74; PULSE 71–118; RESP 12–20; TEMP 36.2–36.9; O2SAT 94–100
[2022-11-30 05:37] LABS: Hemoglobin 11.7 g/dL (14.0-18.0); Mean Corpuscular HGB Conc 33.4 g/dl (32-36); Mean Corpuscular Hemoglobin 33.8 pg (26-34); Mean Corpuscular Volume 101.2 fl (80-100); Platelet Count Result 208 k/mm3 (150-375); Red Blood Count 3.46 M/mm3 (4.6-6.20); Red Cell Distribution Width 13.2 % (11.5-14.5); White Blood Count 5.6 K/mm3 (4.5-10.0)
[2022-11-30 05:50] LABS: Prothrombin Time 13.6 Seconds (11.1-14.7)
[2022-11-30 05:55] LABS: Alanine Aminotransferase 20 U/L (6-50); Albumin Level 3.8 g/dL (3.5-5.1); Alkaline Phosphatase 64 U/L (38-126); Anion Gap 4 mmol/L (8-16); Aspartate Amino Transferase 34 U/L (17-59); Bilirubin,Total 0.4 mg/dL (0.2-1.3); Blood Urea Nitrogen 24 mg/dL (9-20); Calcium 8.9 mg/dL (8.4-10.2); Carbon Dioxide 28 mmol/L (22-30); Chloride 105 mmol/L (98-107); Estimated CRCL calculation 40 ml/min; Estimated Glomerular Filt Rate 42; Glucose 102 mg/dL (65-110); Potassium 4.3 mmol/L (3.4-5.0); Sodium 137 mmol/L (137-145)
[2022-11-30 06:16] LABS: Partial Thromboplastin Time 27.7 SECONDS (22.3-36.8)
[2022-11-30] MEDS: carvediloL 3.125 MG TABLET PO ×2 (08:45→20:33)
--- NOTE | 2022-11-30 10:01 | WPDNEURCNPN ---
Assessment and Plan Assessment and plan (1) Memory loss: Code(s): R41.3 - Other amnesia Status: Acute (2) Recurrent syncope: Code(s): R55 - Syncope and collapse Status: Acute (3) Ischemic cardiomyopathy: Code(s): I25.5 - Ischemic cardiomyopathy Status: Chronic (4) Coronary artery disease: Qualifiers: Associated angina: without angina Coronary Disease-Associated Artery/Lesion type: [place] artery [place] vs. transplanted heart: [place] heart Qualified Code(s): I25.10 - Atherosclerotic heart disease of [place] coronary artery without angina pectoris Code(s): I25.10 - Atherosclerotic heart disease of [place] coronary artery without angina pectoris Status: Chronic Plan Eric Connor is a 72 year old male with a history of CAD s/p CABG, ischemic cardiomyopathy, aortic valve replacement, hypertension, HLD, CKD, and hypothyroidism presenting due to episodes of recurrent syncope. Family has concerns for memory loss. Suspect mild cognitive impairment. He did not tolerate Aricept in the past. Recent B12, folate, TSH wnl. - Discussed option of starting Namenda 5mg BID, patient and family agreeable - Will have patient follow-up as outpatient at [facility] Consult date: 12/01/22 Reason for consult: Syncope, concerns for seizure HPI: Eric Connor is a 72 year old male with a history of CAD s/p CABG, ischemic cardiomyopathy, aortic valve replacement, hypertension, HLD, CKD, and hypothyroidism presenting due to episodes of recurrent syncope. Patient first started having syncopal episodes in 2018. At that time he had a holter monitor placed that did not show any significant abnormalities. However, over the following years, he has continued to have recurrent syncopal episodes that were thought to be vasovagal/cardiogenic in etiology. Last month he had a syncopal event that resulted in T12 burst fracture. Patient reports that prior to passing out, he gets a bad taste in his mouth, feels nauseated and then loses consciousness shortly afterwards. He had two episodes on the day of admission, found him slumped over in a chair after he called out to her. He was unresponsive for about 30 seconds. He was brought to [place] ED, where he was at his baseline. He had an EKG that showed sinus rhythm with intraventricular conduction delay. CT head was unrevealing. Cardiology was consulted and he had pacemaker placed. He has had an MRI brain during this admission that was normal. There have been concerns for memory loss, so patient was started on Aricept by his PCP. His B12, folate, and TSH are within normal range. Per daughter, patient was started on Aricept by his PCP but only took one dose. He developed insomnia so the medication was discontinued by PCP. Patient has been having memory issues for the past year. He will forget specific details that he would have known in the past. He is not wandering or getting lost. He knows the date, the president, and does all his ADLs on his own. His mother had Alzheimer's dementia. Patient reportedly had a prior MRI done that showed atrophy per his daughter. Review of Systems Constitutional: Constitutional: Denies chills, Denies fever(s) and Denies weight loss Eyes: Eyes: Denies diplopia and Denies loss of vision ENT: Denies dizziness, Denies hearing loss and Denies tinnitus Cardiovascular: Cardiovascular: Denies chest pain, Denies syncope and Denies dyspnea Respiratory: Respiratory: Denies cough, Denies dyspnea and Denies wheezing Gastrointestinal: Gastrointestinal: Denies abdominal pain, Denies change in bowel habits and Denies vomiting Genitourinary: Genitourinary: Denies urinary incontinence Musculoskeletal: Musculoskeletal: Denies arthralgias and Denies joint swelling Integumentary/Breasts: Skin/Breast: Denies new lesions and Denies rash Neurologic: Reports as per HPI, Denies dizziness, Denies syncope and Denies loss of vision Psychiatric:
--- NOTE | 2022-11-30 11:13 | ECG_ITS ---
Measurements Intervals [place] Rate: 83 P: 139 FL: 174 QRS: 59 QRSD: 126 T: 164 QT: 359 QTc: 424 Interpretive Statements ELECTRONIC ATRIAL PACEMAKER INTRAVENTRICULAR CONDUCTION DELAY CANNOT RULE OUT SEPTAL INFARCT, AGE INDETERMINATE BORDERLINE ST-T WAVE ABNORMALITY- HIGH LATERAL LEADS ABNORMAL ECG COMPARED TO ECG 11/28/2022 11:32:34 NO SIGNIFICANT CHANGES Electronically Signed On 11-30-2022 13:57:45 CDT by Tristan Cheng D.O.
--- NOTE | 2022-11-30 11:16 | WPDCARDPROC ---
Cardiac Cath Procedure Note Date of procedure:: 11/30/22 Performing physician:: Jhony Baumann MD Indication:: syncope with sick sinus syndrome Brief clinical history:: this is a 72-year-old man with coronary disease aortic valve stenosis who underwent bypass grafting and aortic valve replacement approximately 2 years ago. He now has been experiencing episodes of syncope. Outpatient monitoring demonstrated evidence of sick sinus syndrome with asystolic pauses as long as 4 seconds. For this reason implantation of pacemaker has been recommended. The patient was initially resistant but has reconsidered his decision because of recurrent syncopal events. Procedure Procedure performed:: Permanent pacemaker implantation Sedation/Medication given:: fentanyl 50 mg Versed 2 mg case start time 10:27 a.m. case end time 11:06 a.m. Access site:: left anterior chest wall, left subclavian vein Estimated blood loss:: 20 cc Procedure note:: patient was brought to the cardiac catheterization lab in postabsorptive state where the left anterior chest wall was prepped and draped in the sterile fashion. Anesthesia was given with 1% lidocaine inferior to the clavicle and following that and this incision was made about 1 in below the clavicle from the midclavicular line to the deltopectoral groove. She sharp and blunt dissection was used to separate the subcutaneous tissue and then blunt dissection was used to create a pacemaker pocket inferior to the incision along the fascial plane. Electrocautery was used to provide cutaneous hemostasis. The pocket was then packed with an antibiotic soaked 4 x 4. Attention was then turned to venous access. Using 2 6 [place] pacemaker SafeSheath kits the subclavian vein was punctured twice and the guidewires were placed about on fluoroscopic visualization to the level of the right atrium. The sheaths were used then to place the pacemaker leads described below into the venous actively addition to the level of the right atrium the sheaths were then peeled away. Attention was then turned to positioning the ventricular lead. The stylet was withdrawn and a 3 cc syringe was used to fashion a J-tip stylet. This was used to direct the lead through the right ventricle out to the PA position. A straight stylet was then placed back into the lead and was withdrawn and placed into the right ventricular apex. Appropriate pacing and sensing performs was demonstrated and the fixation screw was deployed. A 10 volts stimulation showed no evidence of extracardiac stimulation. Following this attention was turned to position the atrial lead. The stylet was withdrawn and a preformed atrial J was placed into the lead it was then positioned into the right atrial appendage and the fixation screw was deployed. Upon withdrawal of the stylet the lead tip was fixed into position. Once again appropriate pacing and sensing performs was demonstrated and a 10 pole stimulus was used to show no sign extracardiac stimulation. Following this the leads were sutured to the base of the pocket using the suture sleeves and 2-0 silk ties. The retained sponge was removed the pocket the pocket was then irrigated with antibiotic infused saline. Following this the pacemaker device detailed below was connected to the leads using the torque wrench in the entire assembly was placed into newly created pocket. This was then closed in layers using 3-0 Vicryl in an interrupted fashion for the subcutaneous tissue and 4-0 Vicryl in a running subcuticular fashion for the skin. The wound was dressed with an Aquacel dressing. 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 Findings:: The patient received a [employer] dual-chamber pacemaker model Edora 8 [id number]-T [id number]. serial number [id number]. the device is programmed in DDD/CLS mode lower rate limit 60 upper rate limit 130.
--- NOTE | 2022-11-30 11:43 | SUR.PHASEII ---
shoulder/arm immobilizer in place left side. Good CMS left hand/fingers.
[2022-11-30] MEDS: SODIUM CHLORIDE 0.9% IV 1,000 ML 50 ML IV CONT (13:27)
--- NOTE | 2022-11-30 15:54 | PM.IMPN ---
Progress Note: A&P Assessment and Plan (1) Recurrent syncope: Code(s): R55 - Syncope and collapse Status: Acute Assessment and Plan: Patient has previously declined a loop recorder but is reconsidering. He has had recurrent syncope dating back to 2018 which so far has been attributed to vasovagal syncope with some component of cardio inhibitory response. Monitor orthostatic vital signs. He will be monitored closely on telemetry overnight. Cardiology has been consulted. 10/23/22 TTE from [place] admission showed mild LAE, mild LVH, mild global LV hypokinesis with apical akinesis, LVEF 47%, paradoxical septal wall motion, grade 1 diastolic dysfunction, well seated bioAVR, trace TR, mild OR, and pulmonary hypertension with PASP 38. 5/ s/p placement of [employer] dual-chamber pacemaker model Edora 8 DR-T [id number], serial number [id number]. Device program DDD/CLS mode lower rate limit 60 upper rate limit 130. (2) Ischemic cardiomyopathy: Code(s): I25.5 - Ischemic cardiomyopathy Status: Chronic Assessment and Plan: No chest pain or s/s acute exacerbation. (3) Coronary artery disease: Qualifiers: Coronary Disease-Associated Artery/Lesion type: [place] artery [place] vs. transplanted heart: [place] heart Associated angina: without angina Qualified Code(s): I25.10 - Atherosclerotic heart disease of [place] coronary artery without angina pectoris Code(s): I25.10 - Atherosclerotic heart disease of [place] coronary artery without angina pectoris Status: Chronic Assessment and Plan: No acute issues. s/p CABG 2020. Continue beta-neptali and statin. (4) Hypertension: Qualifiers: Hypertension type: primary hypertension Qualified Code(s): I10 - Essential (primary) hypertension Code(s): I10 - Essential (primary) hypertension Status: Chronic Assessment and Plan: Blood pressures were reviewed and they have been stable. Continue antihypertensives and monitor. (5) Hypothyroidism: Qualifiers: Hypothyroidism type: unspecified Qualified Code(s): E03.9 - Hypothyroidism, unspecified Code(s): E03.9 - Hypothyroidism, unspecified Status: Chronic Assessment and Plan: TSH within normal limits. Continue levothyroxine. (6) Chronic kidney disease: Qualifiers: Chronic kidney disease stage: stage 3 (moderate) Chronic kidney disease stage 3 subtype: stage 3b (GFR 30-44) Qualified Code(s): N18.32 - Chronic kidney disease, stage 3b Code(s): N18.9 - Chronic kidney disease, unspecified Status: Chronic Assessment and Plan: Appears at baseline. GFR 42 Monitor renal function and I/O Avoid nephrotoxic agents. Stable. (7) Systolic and diastolic CHF w/reduced LV function, NYHA class 4: Code(s): I50.40 - Unspecified combined systolic (congestive) and diastolic (congestive) heart failure Status: Chronic Assessment and Plan: Diagnosis prior to CABG. LV function improved per TTE as above. Not in acute exacerbation. (8) T12 burst fracture: Onset Date: 10/2022 Code(s): S22.081A - Stable burst fracture of T11-T12 vertebra, initial encounter for closed fracture Status: Chronic Assessment and Plan: 10/2022 s/p T11-L1 posterior lumbar/thoracic spinal fusion with hardware Continue TLSO brace at all times when out of bed. Hydrocortisone 1% cream BID to dermatitis. Stable (9) Depression: Qualifiers: Depression Type: unspecified Qualified Code(s): F32.A - Depression, unspecified Code(s): F32.A - Depression, unspecified Status: Chronic Assessment and Plan: Chronic, continue Lexapro. (10) Dementia: Qualifiers: Dementia type: unspecified type Dementia severity: unspecified severity Dementia behavioral or psychological symptom: without behavioral, psychotic, or mood disturbance or anxie
[2022-11-30] MEDS: ceFAZolin 1 GM/NS 50 ML 1 GM/50 ML BAG IVPB ×2 (16:43→23:49)
[2022-11-30] MEDS: DONEPEZIL HCL 10 MG TABLET PO (20:33)
[2022-11-30] MEDS: HYDROCORTISONE 1% 30 GM CREAM 1 APPLIC TOPICAL (20:38)
[2022-12-01] VITALS (13 sets, daily range): BP systolic 114–150; BP diastolic 67–76; PULSE 83–115; RESP 18–20; TEMP 36.4–37.2; O2SAT 98–99
[2022-12-01 05:53] LABS: Hemoglobin 11.9 g/dL (14.0-18.0); Mean Corpuscular HGB Conc 33.1 g/dl (32-36); Mean Corpuscular Hemoglobin 33.4 pg (26-34); Mean Corpuscular Volume 101.1 fl (80-100); Mean Platelet Volume 9.2 fl (7.4-10.4); Platelet Count Result 191 k/mm3 (150-375); Red Blood Count 3.56 M/mm3 (4.6-6.20); Red Cell Distribution Width 12.9 % (11.5-14.5); White Blood Count 5.9 K/mm3 (4.5-10.0)
[2022-12-01 06:00] LABS: Alanine Aminotransferase 17 U/L (6-50); Albumin Level 3.8 g/dL (3.5-5.1); Alkaline Phosphatase 63 U/L (38-126); Anion Gap 7 mmol/L (8-16); Aspartate Amino Transferase 30 U/L (17-59); Bilirubin,Total 0.4 mg/dL (0.2-1.3); Blood Urea Nitrogen 22 mg/dL (9-20); Calcium 8.4 mg/dL (8.4-10.2); Carbon Dioxide 24 mmol/L (22-30); Chloride 105 mmol/L (98-107); Estimated CRCL calculation 38 ml/min; Estimated Glomerular Filt Rate 50; Glucose 98 mg/dL (65-110); Potassium 4.2 mmol/L (3.4-5.0); Sodium 136 mmol/L (137-145)
[2022-12-01] MEDS: LEVOTHYROXINE SODIUM 100 MCG TABLET PO (08:07)
[2022-12-01] MEDS: ESCITALOPRAM OXALATE 10 MG TABLET PO (08:53)
[2022-12-01] MEDS: PRAVASTATIN SODIUM 10 MG TABLET PO (08:53)
[2022-12-01] MEDS: carvediloL 3.125 MG TABLET PO (08:53)
[2022-12-01] MEDS: HYDROCORTISONE 1% 30 GM CREAM 1 APPLIC TOPICAL (08:54)
--- NOTE | 2022-12-01 15:22 | PM.PNCARD ---
Progress Note: A&P Assessment and Plan (1) Recurrent syncope: Code(s): R55 - Syncope and collapse Status: Acute Assessment and Plan: History of recurrent syncope secondary to sinus node dysfunction pathologic pauses status post dual-chamber pacemaker implantation without complication. Pacemaker check personally reviewed and discussed, normal device function. Chest x-ray personally reviewed no pneumothorax, pacer leads in expected positions. Patient doing well. Postprocedure precautions reviewed. Follow recommended precautions per Dr. Ann. One-week wound check in the office set up December 08. Patient stable for discharge from cardiac perspective. (2) Coronary artery disease: Qualifiers: Coronary Disease-Associated Artery/Lesion type: [place] artery [place] vs. transplanted heart: [place] heart Associated angina: without angina Qualified Code(s): I25.10 - Atherosclerotic heart disease of [place] coronary artery without angina pectoris Code(s): I25.10 - Atherosclerotic heart disease of [place] coronary artery without angina pectoris Status: Chronic Assessment and Plan: Stable, continue medical therapy with carvedilol, pravastatin, aspirin daily 81 mg. (3) Hypertension: Qualifiers: Hypertension type: primary hypertension Qualified Code(s): I10 - Essential (primary) hypertension Code(s): I10 - Essential (primary) hypertension Status: Chronic Assessment and Plan: Stable, no acute issues. Continue carvedilol 3.125 mg twice daily Subjective Date/time seen: Date of service: 12/01/22 15:22 Follow-up status post pacemaker implantation Patient feeling well. Denies chest pain, shortness of breath palpitations. No new issues overnight. No fevers or chills. Patient states he is rate ago home. Chest x-ray pacemaker check performed normal device function no pneumothorax leads in expected positions. Review of Systems Constitutional: Constitutional: Denies chills and Denies fatigue Eyes: Eyes: Reports no additional eye complaints ENT: Reports system reviewed and no additional complaints, except as documented Cardiovascular: Cardiovascular: Reports as per HPI Respiratory: Respiratory: Reports no additional respiratory complaints Gastrointestinal: Gastrointestinal: Reports no additional gastrointestinal complaints Musculoskeletal: Musculoskeletal: Reports back pain and Reports arthralgias Integumentary/Breasts: Skin/Breast: Reports system reviewed and no additional complaints, except as docu Neurologic: Reports system reviewed and no additional complaints, except as documented and Reports as per HPI Endocrine: Endocrine: Reports no additional endocrine complaints Hematologic/Lymphatic: Hematologic/Lymphatic: Reports no additional hematologic/lymphatic complaints Allergic/Immunologic: Allergic/Immunologic: Reports no additional allergic/immunologic complaints Exam Narrative: No apparent distress breathing comfortably speaking full sentences lying supine in bed. Const: General: comfortable and no acute distress Other: pleasant elderly white male appearing his stated age no distress patient's family is in the room visiting him HENMT: Mouth: Yes moist mucous membranes Eyes: Sclera: sclerae normal Neck: Neck: supple and no JVD Other: carotid pulses are normal bilaterally there are no audible bruit Resp: Effort & Inspection: normal respiratory effort Auscultation: clear to auscultation bilaterally Cardio: Rate: regular rate Rhythm: regular rhythm Other: very soft systolic murmur does not radiate from the left sternal border. No diastolic murmur GI: Auscultation: normal bowel sounds Skin: General skin exam: normal color Neuro: Other: alert and oriented x3 Extrem: Other: adequate perfusion, no edema; left anterior chest wall pacemaker site covered, no hematoma swelling edema order bleedin
--- NOTE | 2022-12-01 15:41 | PM.DS ---
DS: Admitting Diagnosis Discharge Date 12/01/2022 Admitting Diagnosis recurrent syncope DS: Discharge Diagnosis Discharge Diagnosis (1) Recurrent syncope: Code(s): R55 - Syncope and collapse Status: Acute Assessment and Plan: He has had recurrent syncope dating back to 2018 which so far has been attributed to vasovagal syncope with some component of cardio inhibitory response. he was seen in consultation by Cardiology during admission. TTE from [place] admission completed on 10/23/2022 was reviewed which showed mild LAE, mild LVH, mild global LV hypokinesis with apical akinesis, LVEF 47%, paradoxical septal wall motion, grade 1 diastolic dysfunction, well seated bioAVR, trace TR, mild GA, and pulmonary hypertension with PASP 38. underwent placement of Biotronik dual-chamber pacemaker on 11/30/2022. tolerated this well. Will follow-up with cardiology as an outpatient on 12/08/2022 for incision check and continued monitoring. Post pacemaker precautions discussed. pacemaker model Edora 8 DR-T [id number], serial number [id number]. Device program DDD/CLS mode lower rate limit 60 upper rate limit 130. (2) Ischemic cardiomyopathy: Code(s): I25.5 - Ischemic cardiomyopathy Status: Chronic Assessment and Plan: No acute issues. (3) Coronary artery disease: Qualifiers: Coronary Disease-Associated Artery/Lesion type: ambler artery [place] vs. transplanted heart: ambler heart Associated angina: without angina Qualified Code(s): I25.10 - Atherosclerotic heart disease of ambler coronary artery without angina pectoris Code(s): I25.10 - Atherosclerotic heart disease of ambler coronary artery without angina pectoris Status: Chronic Assessment and Plan: No acute issues. s/p CABG 2020. Continue beta-neptali and statin. Started on aspirin 81 mg daily per Cardiology recommendations (4) Hypertension: Qualifiers: Hypertension type: primary hypertension Qualified Code(s): I10 - Essential (primary) hypertension Code(s): I10 - Essential (primary) hypertension Status: Chronic Assessment and Plan: Blood pressures were reviewed and remained stable. Continue home antihypertensives (5) Hypothyroidism: Qualifiers: Hypothyroidism type: unspecified Qualified Code(s): E03.9 - Hypothyroidism, unspecified Code(s): E03.9 - Hypothyroidism, unspecified Status: Chronic Assessment and Plan: TSH within normal limits. Continue levothyroxine. (6) Chronic kidney disease: Qualifiers: Chronic kidney disease stage: stage 3 (moderate) Chronic kidney disease stage 3 subtype: stage 3b (GFR 30-44) Qualified Code(s): N18.32 - Chronic kidney disease, stage 3b Code(s): N18.9 - Chronic kidney disease, unspecified Status: Chronic Assessment and Plan: renal function at baseline (7) Systolic and diastolic CHF w/reduced LV function, NYHA class 4: Code(s): I50.40 - Unspecified combined systolic (congestive) and diastolic (congestive) heart failure Status: Chronic Assessment and Plan: Diagnosis prior to CABG. LV function improved per TTE as above. Not in acute exacerbation. (8) T12 burst fracture: Onset Date: 10/2022 Code(s): S22.081A - Stable burst fracture of T11-T12 vertebra, initial encounter for closed fracture Status: Chronic Assessment and Plan: 10/2022 s/p T11-L1 posterior lumbar/thoracic spinal fusion with hardware. Continue TLSO brace at all times when out of bed. Hydrocortisone 1% cream BID to dermatitis. Stable (9) Depression: Qualifiers: Depression Type: unspecified Qualified Code(s): F32.A - Depression, unspecified Code(s): F32.A - Depression, unspecified Status: Chronic Assessment and Plan: Chronic, continue Lexapro. (10) Dementia: Qualifiers: Dementia type: unspecified t
== END 2022-12-01 16:15 | disposition home health service (06) | DRG 243 ==
LOC: ANHED 12:14 → ANH2MED 15:17
PROVIDERS: Nurse Practitioner Family; Physician Assistant; Specialist; Admitting Provider Internal Medicine; Emergency Provider General Practice; PCP Family Medicine; Visit Provider Physician Assistant
PROC: 0JH606Z Insertion of Pacemaker, Dual Chamber into Chest Subcutaneous Tissue and Fascia, Open Approach (ICD-10-PCS; CPT 33208; principal; 2022-11-30 10:00)
DX: I49.5 Sick sinus syndrome (principal); I13.0 Hypertensive heart and chronic kidney disease with heart failure and stage 1 through stage 4 chronic kidney disease, or unspecified chronic kidney disease; I50.42 Chronic combined systolic (congestive) and diastolic (congestive) heart failure; R55 Syncope and collapse; I27.20 Pulmonary hypertension, unspecified; E03.9 Hypothyroidism, unspecified; E78.5 Hyperlipidemia, unspecified; F03.90 Unspecified dementia, unspecified severity, without behavioral disturbance, psychotic disturbance, mood disturbance, and anxiety; F32.A Depression, unspecified; I25.5 Ischemic cardiomyopathy; I25.10 Atherosclerotic heart disease of native coronary artery without angina pectoris; J43.8 Other emphysema; N18.32 Chronic kidney disease, stage 3b; S22.081D Stable burst fracture of T11-T12 vertebra, subsequent encounter for fracture with routine healing; W19.XXXD Unspecified fall, subsequent encounter; Z87.891 Personal history of nicotine dependence; Z95.4 Presence of other heart-valve replacement; Z95.1 Presence of aortocoronary bypass graft
CPT/HCPCS: 33208; 36415; 70450; 70551; 71045; 71046; 71275; 80053; 81003; 82607; 82728; 82746; 83540; 83550; 83735; 84443; 85025; 85027; 85610; 85730; 93005; 93880; 99285; A9270; C1779; C1785; G0378; J0690; J2250; J3010; J7030; J7040; Q9967

== ENCOUNTER 2023-02-07 12:55 | Observation (INO) | payer MEDICARE, SELFPAY ==
[2023-02-07] VITALS (9 sets, daily range): BP systolic 116–153; BP diastolic 54–85; PULSE 64–92; RESP 15–19; TEMP 36.5–36.8; O2SAT 96–100; BMI 25.9
--- NOTE | ~2023-02-07 | XR_ITS ---
EXAMINATION: XR chest 2V DATE: 02/07/2023 13:28 INDICATION: Syncope. Confusion. TECHNIQUE: Frontal and lateral views of the chest were obtained. COMPARISON: Chest 2 views 12/01/2022, chest CT 11/28/2022 FINDINGS: The chest demonstrates clear lungs without pneumonia, pleural effusion, or pneumothorax. Th e heart size is normal. There are changes of aortic valve replacement. There is a left chest wall pac er with leads in the right atrium and right ventricle. There are changes of posterior fusion procedur e in the lumbar spine. IMPRESSION: 1. No acute cardiopulmonary disease. Reviewed, dictated and finalized at location A.
--- NOTE | ~2023-02-07 | CT_ITS ---
EXAMINATION: CT brain wo con DATE: 02/07/2023 13:29 INDICATION: Syncope. Altered mental status. TECHNIQUE: Computed tomography (CT) of the head was performed without intravenous contrast. The mA wa s adjusted according to patient size. Iterative reconstruction technique was employed. The dose-lengt h product was 605.33 mGy-cm. COMPARISON: Head CT 11/28/2022, brain MRI 11/29/2022 FINDINGS: There are scattered areas of low attenuation in the cerebral white matter and bilateral bas al ganglia. There is no intracranial hemorrhage, acute infarction, or abnormal intracranial mass lesi on. The ventricles are normal in size. The paranasal sinuses are clear. The mastoid air cells are nor mal. The orbits are normal. IMPRESSION: 1. Stable mild nonspecific cerebral white matter disease and disease of the bilateral basal ganglia, which likely represents chronic small vessel ischemic disease. Reviewed, dictated and finalized at location A. IMPRESSION: 1. Stable mild nonspecific cerebral white matter disease and disease of the rosa ateral basal ganglia, which likely represents chronic small vessel ischemic dis ease.
--- NOTE | 2023-02-07 13:04 | ECG_ITS ---
Measurements Intervals [place] Rate: 74 P: 165 [place]: 205 QRS: 22 QRSD: 128 T: 62 QT: 378 QTc: 422 Interpretive Statements ELECTRONIC ATRIAL PACEMAKER INTRAVENTRICULAR CONDUCTION DELAY CANNOT RULE OUT SEPTAL INFARCT, AGE INDETERMINATE CONSIDER HIGH LATERAL INFARCT, AGE INDETERMINATE BORDERLINE ST-T WAVE ABNORMALITY- INF/LAT LEADS ABNORMAL ECG COMPARED TO ECG 11/30/2022 13:44:43 NO SIGNIFICANT CHANGES Electronically Signed On 02-07-2023 16:35:54 CDT by Tristan Cheng D.O.
[2023-02-07 13:44] LABS: Basophils Absolute Auto 0.1 K/mm3 (0.0-0.1); Basophils Percent Auto 0.8 % (0.2-1.2); Eosinophils Absolute Auto 0.1 K/mm3 (0-0.3); Eosinophils Percent Auto 1.8 % (0-4.4); Hematocrit 39.8 % (42.0-52.0); Immature Granulocyte Absolute 0.03 K/mm3 (0.00-0.031); Immature Granulocyte Percent A 0.5 % (0-0.5); Lymphocytes Absolute Auto 2.12 K/mm3 (0.9-3.2); Lymphocytes Percent Auto 32.1 % (18.3-44.2); Mean Corpuscular HGB Conc 32.7 g/dl (32-36); Mean Corpuscular Hemoglobin 31.7 pg (26-34); Mean Corpuscular Volume 97.1 fl (80-100); Mean Platelet Volume 9.7 fl (7.4-10.4); Monocytes Absolute Auto 0.6 K/mm3 (0.1-0.6); Monocytes Percent Auto 9.7 % (2.6-8.5); Neutrophils Absolute Auto 3.6 K/mm3 (1.3-6.7); Neutrophils Percent Auto 55.1 % (45.5-73.1); Platelet Count Result 170 k/mm3 (150-375); Red Cell Distribution Width 12.6 % (11.5-14.5); White Blood Count 6.6 K/mm3 (4.5-10.0)
[2023-02-07] MEDS: SODIUM CHLORIDE 0.9% IV 1,000 ML 999 ML IV CONT (13:45)
[2023-02-07 13:52] LABS: Appearance Urine Clear (Clear); Bilirubin Urine Negative (Negative); Blood Urine Negative (Negative); Color Urine Yellow (Yellow); Glucose Urine UA Negative (Negative); Ketones Urine Negative (Negative); Leukocyte Esterase Ur Negative LEU/UL (Negative); Nitrate Urine Negative (Negative); Protein Urine Negative (Negative); Urobilinogen Urine 0.2 mg/dL (<2.0); pH Urine 5.5 (5.0-9.0)
[2023-02-07 13:56] LABS: Alanine Aminotransferase 22 U/L (6-50); Albumin Level 4.4 g/dL (3.5-5.1); Alkaline Phosphatase 56 U/L (38-126); Anion Gap 6 mmol/L (8-16); Aspartate Amino Transferase 32 U/L (17-59); Bilirubin,Total 0.5 mg/dL (0.2-1.3); Blood Urea Nitrogen 24 mg/dL (9-20); Calcium 9.1 mg/dL (8.4-10.2); Carbon Dioxide 27 mmol/L (22-30); Chloride 102 mmol/L (98-107); Estimated CRCL calculation 35 ml/min; Estimated Glomerular Filt Rate 46; Glucose 102 mg/dL (65-110); Potassium 4.5 mmol/L (3.4-5.0); Sodium 135 mmol/L (137-145)
[2023-02-07 13:57] LABS: Prothrombin Time 13.2 Seconds (11.1-14.7)
[2023-02-07 13:58] LABS: Partial Thromboplastin Time 27.2 SECONDS (22.3-36.8)
[2023-02-07 14:02] LABS: Add Urine Microscopic? NO
[2023-02-07 14:06] LABS: Amphetamine Screen Urine Negative (Negative); Barbiturate Screen Urine Negative (Negative); Benzodiazepines Screen Urine Negative (Negative); Cannabinoid Screen Urine Negative (Negative); Cocaine Screen Urine Negative (Negative); Methadone Screen Urine Negative (Negative); Opiate Screen Urine Negative (Negative); Phencyclidine Screen Urine Negative (Negative)
[2023-02-07 14:08] LABS: Troponin I < 0.012 ng/mL (0.000-0.034)
--- NOTE | 2023-02-07 15:23 | ED.GENADULT ---
HPI - General Adult General Chief complaint: Syncope Stated complaint: Syncopal episode History of Present Illness HPI narrative: Patient is a 73-year-old male who presents ER after having a syncopal episode. Patient was on a chair speaking on the phone when he became unresponsive. His was sitting next to him. She reports she had a glazed look over his eyes and then his hands were trembling. This lasted for approximately 20 minutes. Patient has had previous work-up for cardiogenic syncope. She reports he was also drooling. No tongue biting. No history of seizures. Patient does have dementia and has been seen by Dr. Cristina in the past. He is currently on donepezil. Patient improved prior to EMS arriving. Related Data Home Medications Medication Instructions Recorded Confirmed coenzyme Q10 100 mg capsule (Co 100 mg PO DAILY 11/12/20 11/28/22 Q-10) carvedilol 3.125 mg tablet (Coreg) 3.125 mg PO BID 02/02/21 11/28/22 Allergies Allergy/AdvReac Type Severity Reaction Status Date / Time No Known Allergies Allergy Verified 02/07/23 13:06 Review of Systems Review of Systems: ROS unobtainable: Yes other (Dementia) [facility] Past Medical History Medical History (Updated 02/07/23 @ 20:33 by Greg German MD) Chronic kidney disease Coronary artery disease Dyslipidemia Hypertension Hypothyroidism Ischemic cardiomyopathy Pacemaker Pulmonary emphysema Syncope and collapse Longstanding recurrent syncope, probably vasovagal with a cardioinhibitory component. T12 burst fracture (10/2022) Surgical History Surgical History History of aortic valve replacement (11/2020) History of coronary artery bypass graft (11/2020) History of spinal surgery (10/19/22) T11-L1 percutaneous pedicle screw fixation. 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 Code status: Full code. Smoking packs per day: 0.5 Smoking cigarettes per day: 10.0 Years smoked: 40 Smoking pack-years: 20.00 Smoking status: Former smoker Tobacco type: cigarettes Second hand tobacco smoke exposure: No Alcohol intake: never Drinks per week: 1 Substance use: never Substance use type: does not use Lack of Transportation: No Lack of Food: Never True Current Housing: I Have Housing Concerned About Future Housing: No Difficulty Paying Gas/Electric Bills: No Difficulty Paying for Meds: No Currently Unemployed: No Education: Trade/Vocational Certificate Difficulty w/ Childcare or Family Care: No Additional living arrangements comments: . 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 Gender identity (if verbalized by the patient): Male Spiritual care concerns: No Exam Narrative: GENERAL: Well-appearing, well-nourished, and in no acute distress. HEAD: Normocephalic, atraumatic. EYES: PERRL and EOMI. ENT: Mucous membranes moist. CHEST: Clear to auscultation. No respiratory distress. HEART: Regular rate and rhythm. Normal peripheral pulses. ABDOMEN: Soft, nontender, nondistended. EXTREMITIES: Normal range of motion. No edema. SKIN: Warm, dry, no rash. NEURO: No focal deficits. Alert and oriented x2. PSYCH: Normal mood and affect. Course Course Emergency Course: Patient resting comfortably. He did have prolonged syncope according to the which is of concern. We will have the patient's pacemaker interrogated. Admit to the hospital service for observation. Vital Signs Vital signs: Vital Signs Temperature 98.3 F 02/07/23 13:00 Pulse Rate 70 02/07/23 13:00 Respiratory Rate 1
--- NOTE | 2023-02-07 15:58 | PC.NURSE ---
[employer] contacted for pacemaker interrogation. [employer] to send request to local rep.
--- NOTE | 2023-02-07 16:12 | PC.NURSE ---
[employer] rep called back. Reports was able to interrogate pacemaker remotely and device is functioning as it should. [employer] rep provided with our fax # to send report.
--- NOTE | 2023-02-07 19:55 | PM.IMHP ---
H&P: HPI History of Present Illness Date/Time: 02/07/23 19:55 Chief Complaint: Syncopal episode Narrative: This is a 73-year-old male patient who has had multiple syncopal episodes. The patient was sitting in his chair speak on the phone when he became unresponsive. His is sitting next to him and stated that the patient was placed over and his hands were trembling. This lasted for approximately 20 minutes. Patient has had multiple previous workups for syncope in the past. The also stated that the patient was drooling. He has no history of seizures. He does have a history of dementia and was seen by Dr. Cristina. H&H is 13.039.8 which is improved from his last reading. Sodium 135. BUN 24 creatinine 1.5 which is his baseline. GFR is 46 which is his baseline. Urine is negative and his toxicology screen is negative. His head CT was read as followsStable mild nonspecific cerebral white matter disease and disease of the bilateral basal ganglia, which likely represents chronic small vessel ischemic disease. Chest x-ray was read as no acute cardiopulmonary disease.. EKG was read as electronic atrial pacemaker. The patient was given a L of IV fluids. The patient was very talkative and moving all extremities when that I assessed him. The patient is being admitted to observation status on the date of service of 02/07/2023 Review of Systems Review of Systems: All systems reviewed & are unremarkable except as noted in HPI and below Constitutional: Constitutional: Reports as per HPI and Reports no additional constitutional complaints Eyes: Eyes: Reports as per HPI and Reports no additional eye complaints ENT: Reports system reviewed and no additional complaints, except as documented and Reports Normal hearing present Cardiovascular: Cardiovascular: Reports no additional cardiovascular complaints Respiratory: Respiratory: Reports no additional respiratory complaints and Reports no additional respiratory complaints Gastrointestinal: Gastrointestinal: Reports as per HPI and Reports no additional gastrointestinal complaints Musculoskeletal: Musculoskeletal: Reports no additional musculoskeletal complaints Integumentary/Breasts: Skin/Breast: Reports system reviewed and no additional complaints, except as docu and Reports as per HPI Neurologic: Reports system reviewed and no additional complaints, except as documented, Reports as per HPI and Reports Normal hearing present Psychiatric: Psychiatric: Reports no additional psychiatric complaints and Reports as per HPI Endocrine: Endocrine: Reports no additional endocrine complaints Hematologic/Lymphatic: Hematologic/Lymphatic: Reports no additional hematologic/lymphatic complaints Allergic/Immunologic: Allergic/Immunologic: Reports no additional allergic/immunologic complaints [facility] Past Medical History Medical History Chronic kidney disease Coronary artery disease Dyslipidemia Hypertension Hypothyroidism Ischemic cardiomyopathy Pacemaker Pulmonary emphysema Syncope and collapse Longstanding recurrent syncope, probably vasovagal with a cardioinhibitory component. T12 burst fracture (10/2022) Surgical History Surgical History History of aortic valve replacement (11/2020) History of coronary artery bypass graft (11/2020) History of spinal surgery (10/19/22) T11-L1 percutaneous pedicle screw fixation. Family History Family History Grandparent Family history of congestive heart failure Mother Family history of Alzheimer's disease Social History Social History (Updated 02/07/23 @ 23:30 by Dhara Fernandes NP) Social History: The patient has 3 daughters . 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 He has a former smoker. Surrogate medical decision maker: Soniya Connor, spouse. Code status: Full code. Smoking packs pe
[2023-02-07 22:53] LABS: Ethanol < 10 mg/dL (<10)
[2023-02-08] VITALS (10 sets, daily range): BP systolic 98–143; BP diastolic 54–76; PULSE 60–74; RESP 18–20; TEMP 36.6; O2SAT 97–100
[2023-02-08 05:56] LABS: Basophils Percent Auto 0.6 % (0.2-1.2); Eosinophils Absolute Auto 0.1 K/mm3 (0-0.3); Eosinophils Percent Auto 2.4 % (0-4.4); Hematocrit 35.4 % (42.0-52.0); Hemoglobin 11.8 g/dL (14.0-18.0); Immature Granulocyte Absolute 0.02 K/mm3 (0.00-0.031); Immature Granulocyte Percent A 0.4 % (0-0.5); Lymphocytes Absolute Auto 1.82 K/mm3 (0.9-3.2); Lymphocytes Percent Auto 36.5 % (18.3-44.2); Mean Corpuscular HGB Conc 33.3 g/dl (32-36); Mean Corpuscular Hemoglobin 32.3 pg (26-34); Mean Platelet Volume 9.9 fl (7.4-10.4); Monocytes Absolute Auto 0.6 K/mm3 (0.1-0.6); Neutrophils Absolute Auto 2.5 K/mm3 (1.3-6.7); Neutrophils Percent Auto 49.1 % (45.5-73.1); Platelet Count Result 150 k/mm3 (150-375); Red Blood Count 3.65 M/mm3 (4.6-6.20); Red Cell Distribution Width 12.6 % (11.5-14.5)
[2023-02-08] MEDS: LEVOTHYROXINE SODIUM 100 MCG TABLET PO (05:59)
[2023-02-08 06:06] LABS: Lactic Acid Reflex 0.9 mmol/L (0.7-2.0)
[2023-02-08 06:09] LABS: Alanine Aminotransferase 17 U/L (6-50); Albumin Level 3.3 g/dL (3.5-5.1); Alkaline Phosphatase 45 U/L (38-126); Anion Gap 2 mmol/L (8-16); Aspartate Amino Transferase 27 U/L (17-59); Bilirubin,Total 0.4 mg/dL (0.2-1.3); Blood Urea Nitrogen 21 mg/dL (9-20); Calcium 8.6 mg/dL (8.4-10.2); Carbon Dioxide 26 mmol/L (22-30); Chloride 106 mmol/L (98-107); Estimated CRCL calculation 35 ml/min; Estimated Glomerular Filt Rate 46; Glucose 91 mg/dL (65-110); Magnesium 2.2 mg/dL (1.6-2.3); Sodium 134 mmol/L (137-145)
[2023-02-08 07:10] LABS: Thyroid Stimulating Hormone Reflex 0.845 uIU/mL (0.465-4.68)
--- NOTE | 2023-02-08 08:59 | PM.IMPN ---
Progress Note: A&P Assessment and Plan (1) Syncope: Code(s): R55 - Syncope and collapse Status: Acute Assessment and Plan: The patient is known to have recurrent syncope. The patient had recently been evaluated by Neurology on 11/30/2022. There was some concern for seizures at that time. The patient has had multiple syncopal episodes starting in 2018. The patient had a Holter monitor that did not show any significant abnormalities. The patient now has a pacemaker. I did request for the pacemaker to be interrogated. The patient had an echo on 03/31/2022 his EF was 55% at that time. Patient had a normal-appearing aortic valve bioprosthesis. Mild pulmonary regurgitation normal sinus rhythm. Head CT today stable mild nonspecific cerebral white matter disease and disease of the bilateral basal ganglia, which likely represents chronic small vessel ischemic disease. Check orthostatic blood pressures every shift. The patient already had carotid Doppler study on 11/29/2022 which was read as follows. <50% stenosis in the right internal carotid artery. 2. <50% stenosis in the left internal carotid artery. I did order an EEG for the possibility of a seizure. The patient is already on aspirin and Plavix and I did continue with this. (2) Dementia: Qualifiers: Dementia behavioral or psychological symptom: without behavioral, psychotic, or mood disturbance or anxiety Dementia severity: unspecified severity Dementia type: unspecified type Qualified Code(s): F03.90 - Unspecified dementia, unspecified severity, without behavioral disturbance, psychotic disturbance, mood disturbance, and anxiety Code(s): F03.90 - Unspecified dementia, unspecified severity, without behavioral disturbance, psychotic disturbance, mood disturbance, and anxiety Status: Chronic Assessment and Plan: Continue with Aricept (3) Depression: Qualifiers: Depression Type: unspecified Qualified Code(s): F32.A - Depression, unspecified Code(s): F32.A - Depression, unspecified Status: Chronic Assessment and Plan: Continue Lexapro (4) Chronic kidney disease: Qualifiers: Chronic kidney disease stage: stage 3 (moderate) Chronic kidney disease stage 3 subtype: stage 3b (GFR 30-44) Qualified Code(s): N18.32 - Chronic kidney disease, stage 3b Code(s): N18.9 - Chronic kidney disease, unspecified Status: Chronic Assessment and Plan: Patient is at his baseline. (5) Hypertension: Qualifiers: Hypertension type: primary hypertension Qualified Code(s): I10 - Essential (primary) hypertension Code(s): I10 - Essential (primary) hypertension Status: Chronic Assessment and Plan: Continue with Coreg and check orthostatic blood pressures. (6) Hypothyroidism: Code(s): E03.9 - Hypothyroidism, unspecified Status: Acute Assessment and Plan: Check thyroid level continue with levothyroxine (7) CHF (congestive heart failure): Code(s): I50.9 - Heart failure, unspecified Status: Acute Assessment and Plan: the patient had an echo on 03/31/2022 his EF was 55% at that time. Patient had a normal-appearing aortic valve bioprosthesis. Mild pulmonary regurgitation normal sinus rhythm Subjective Date/time seen: 02/08/23 08:59 Interval history: 73-year-old male with history of kidney disease, heart disease, hypothyroidism is presenting with multiple syncopal episodes. No overnight events noted. No chest pain or shortness of breath. No nausea, vomiting or diarrhea. No fevers or chills. No episodes since being here. Review of Systems Review of Systems: 12 point review of systems was assessed and was negative except as noted in the HPI Exam Narrative: General: No acute distress, alert and oriented per baseline HEENT: Atraumatic, normocephalic, mucous membranes moist CV: Regular rate and rhythm,
[2023-02-08] MEDS: CLOPIDOGREL BISULFATE 75 MG TABLET PO (09:34)
[2023-02-08] MEDS: PRAVASTATIN SODIUM 10 MG TABLET PO (09:34)
[2023-02-08] MEDS: carvediloL 3.125 MG TABLET PO (09:34)
[2023-02-08] MEDS: ESCITALOPRAM OXALATE 10 MG TABLET PO (09:34)
[2023-02-08] MEDS: ASPIRIN 81 MG CHEWABLE TABLET PO (09:34)
--- NOTE | 2023-02-08 10:10 | PC.NURSE ---
1000: Dr Anderson' office called the floor to tell me I needed to let the doctor know he had a consult with this patient. Doctor is in surgery. I called and left a message that his office called the floor to let me know I needed to let him know he had a consult with the patient in room 343 on [facility]
--- NOTE | 2023-02-08 11:23 | WPDNEUROLOGY ---
Neurology EEG Report General Information Date of Study: 02/08/23 TEST eeg DIAGNOSIS tremors CONDITION OF RECORDING awake and drowsy EEG NUMBER [id number] CLINICAL HISTORY patient reports he is here in the hospital because he has lost consciousness x2 patient does have a pacemaker EEG DESCRIPTION basic resting occipital frequency consists of low voltage 9 to 11 hertz per 2nd alpha admixed with low-voltage 15 to 18 hertz per 2nd beta with good janis posterior rating. Low-voltage beta activity seen diffusely admixed with waxing and waning posterior alpha rhythm. Hyperventilation not done. Photic stimulation not done. Non paroxysmal. Nonfocal. Nonlateralizing. IMPRESSION Normal record
--- NOTE | 2023-02-08 12:55 | WPDNEURCNPN ---
Assessment and Plan Assessment and plan (1) Dementia: Qualifiers: Dementia type: unspecified type Dementia severity: unspecified severity Dementia behavioral or psychological symptom: without behavioral, psychotic, or mood disturbance or anxiety Qualified Code(s): F03.90 - Unspecified dementia, unspecified severity, without behavioral disturbance, psychotic disturbance, mood disturbance, and anxiety Code(s): F03.90 - Unspecified dementia, unspecified severity, without behavioral disturbance, psychotic disturbance, mood disturbance, and anxiety Status: Chronic (2) Partial seizures: Code(s): R56.9 - Unspecified convulsions Status: Acute Plan 1 ongoing dementia 2 chronic renal disease 3 possible seizures EEG has been done was reviewed by myself it was non paroxysmal at this particular time. Will consider adding Keppra and other treatment as such Consult date: 02/08/23 HPI: Eric Connor is a 73 year old male Admitted to the hospital through the emergency room subsequent to having had a syncopal episode at home. Patient was on and chair speaking on the phone when he became unresponsive his was sitting next to him who reported that he had at least look over his eyes and his hands were trembling the whole episode lasted for about 20 minutes patient has had the previous workup done for the cardiogenic syncope in the past she also mentioned that he was drooling 2 there was no tongue biting no tonic-clonic activity patient does have ongoing history of dementia and has seen Dr. Cristina in the past at present is taking donepezil patient did improve prior to EMS arriving at the scene he is not allergic to any medication has ongoing history of chronic renal disease coronary artery disease hypertension pacemaker in and T12 burst fracture he has also undergone aortic valve replacement coronary artery bypass grafting and spinal surgery with T11-L1 percutaneous pedicle screw fixation he carries the full code status has history of 40 years smoked 20 pack years but at present former smoker and never alcohol intake initial exam in the emergency room were grossly unremarkable vital signs were normal routine lab was normal drug screen was negative chest x-ray was negative he was admitted to the hospital with EKG normal without any evidence of atrial fibrillation Review of Systems Review of Systems: All systems reviewed & are unremarkable except as noted in HPI and below PMFSH Past Medical History Medical History Chronic kidney disease Coronary artery disease Dyslipidemia Hypertension Hypothyroidism Ischemic cardiomyopathy Pacemaker Pulmonary emphysema Syncope and collapse Longstanding recurrent syncope, probably vasovagal with a cardioinhibitory component. T12 burst fracture (10/2022) Surgical History Surgical History History of aortic valve replacement (11/2020) History of coronary artery bypass graft (11/2020) History of spinal surgery (10/19/22) T11-L1 percutaneous pedicle screw fixation. Family History Family History Grandparent Family history of congestive heart failure Mother Family history of Alzheimer's disease Social History Social History (Updated 02/07/23 @ 23:30 by Dhara Fernandes NP) Social History: The patient has 3 daughters . 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 He has a former smoker. Surrogate medical decision maker: Soniya Connor, spouse. Code status: Full code. Smoking packs per day: 0.5 Smoking cigarettes per day: 10.0 Years smoked: 40 Smoking pack-years: 20.00 Smoking status: Former smoker Tobacco type: cigarettes Second hand tobacco smoke exposure: No Alcohol intake: never Drinks per week: 1 Substance use: never Substance use type: does not use Lack of Transportation: No Lack of Food: Never True
--- NOTE | 2023-02-08 15:26 | PM.DS ---
DS: Admitting Diagnosis Discharge Date 02/08/23 Admitting Diagnosis syncopal episodes DS: Discharge Diagnosis Discharge Diagnosis (1) Syncope: Code(s): R55 - Syncope and collapse Status: Acute (2) Dementia: Qualifiers: Dementia behavioral or psychological symptom: without behavioral, psychotic, or mood disturbance or anxiety Dementia severity: unspecified severity Dementia type: unspecified type Qualified Code(s): F03.90 - Unspecified dementia, unspecified severity, without behavioral disturbance, psychotic disturbance, mood disturbance, and anxiety Code(s): F03.90 - Unspecified dementia, unspecified severity, without behavioral disturbance, psychotic disturbance, mood disturbance, and anxiety Status: Chronic (3) Depression: Qualifiers: Depression Type: unspecified Qualified Code(s): F32.A - Depression, unspecified Code(s): F32.A - Depression, unspecified Status: Chronic (4) Chronic kidney disease: Qualifiers: Chronic kidney disease stage: stage 3 (moderate) Chronic kidney disease stage 3 subtype: stage 3b (GFR 30-44) Qualified Code(s): N18.32 - Chronic kidney disease, stage 3b Code(s): N18.9 - Chronic kidney disease, unspecified Status: Chronic (5) Hypertension: Qualifiers: Hypertension type: primary hypertension Qualified Code(s): I10 - Essential (primary) hypertension Code(s): I10 - Essential (primary) hypertension Status: Chronic (6) Hypothyroidism: Code(s): E03.9 - Hypothyroidism, unspecified Status: Acute (7) CHF (congestive heart failure): Code(s): I50.9 - Heart failure, unspecified Status: Acute DS: Summary Hospital Course Hospital Course: 73-year-old male with history of multiple syncopal episodes since 2018 with past workups coming up benign. Concern for possible seizure disorder, Neurology was consulted and recommended initiating Keppra at discharge and follow-up outpatient. Please see above and med rec for details. Patient had no episodes while hospitalized. Time Spent with Patient Time attestation: Total time spent providing and/or coordinating discharge services: DS: Data Data Completed and Pending Labs on day of discharge: Labs from last 24 hours 02/08/23 02/07/23 05:36 13:16 WBC 5.0 RBC 3.65 L Hgb 11.8 L Hct 35.4 L MCV 97.0 MCH 32.3 MCHC 33.3 RDW 12.6 Plt Count 150 MPV 9.9 Immature Gran % (Auto) 0.4 Neut % (Auto) 49.1 Lymph % (Auto) 36.5 [place] % (Auto) 11.0 H Eos % (Auto) 2.4 Baso % (Auto) 0.6 Lymph # (Auto) 1.82 [place] # (Auto) 0.6 Eos # (Auto) 0.1 Baso # (Auto) 0.0 Abs Immat Gran (auto) 0.02 Absolute Neuts (auto) 2.5 Absolute Nucleated RBC 0.0 Nucleated RBC % 0.0 Sodium 134 L Potassium 4.0 Chloride 106 Carbon Dioxide 26 Anion Gap 2 L BUN 21 H Creatinine 1.50 H Estim Creat Clear Calc 35 Estimated GFR 46 L Glucose 91 Lactic Acid 0.9 Calcium 8.6 Magnesium 2.2 Total Bilirubin 0.4 AST 27 ALT 17 Alkaline Phosphatase 45 Total Protein 6.0 L Albumin 3.3 L TSH (Reflex) 0.845 Ethyl Alcohol < 10 Discharge Plan Discharge Attending physician on discharge: Sarai Talley Consulting providers: Andrey Siddiqui Discharging Clinician: Sarai Talley Patient Disposition: Home, Self-Care Activity: as tolerated Diet: as tolerated Patient Instructions: Antibiotic Form Stand Alone Forms: General Discharge Information Follow-up/Referrals: Vince Turcios MD [Primary Care Provider] - Andrey Siddiqui MD [Physician] - Discharge Medications: Continued albuterol sulfate 90 mcg/actuation HFA aerosol inhaler 1 puff inhalation Q4H PRN (Reason: shortness of breath or wheezing) Qty: 8.5 1RF carvedilol [Coreg] 3.125 mg Tablet 3.125 mg PO BID coenzyme Q10 [Co Q-10] 100 mg Capsule 100 mg PO DAILY clopidogrel 75 mg
== END 2023-02-08 16:31 | disposition home or self-care (01) ==
LOC: ANHED 13:32 → ANH3MED 20:33 → ANH3MEDSUR 02-09 10:52
PROVIDERS: Nurse Practitioner; Admitting Provider Chiropractor; Emergency Provider Emergency Medicine; PCP Family Medicine; Visit Provider Student in an Organized Health Care Education/Training Program
DX: R55 Syncope and collapse (principal); R56.9 Unspecified convulsions; F03.90 Unspecified dementia, unspecified severity, without behavioral disturbance, psychotic disturbance, mood disturbance, and anxiety; F32.A Depression, unspecified; I13.0 Hypertensive heart and chronic kidney disease with heart failure and stage 1 through stage 4 chronic kidney disease, or unspecified chronic kidney disease; N18.32 Chronic kidney disease, stage 3b; I50.9 Heart failure, unspecified; E03.9 Hypothyroidism, unspecified; E78.5 Hyperlipidemia, unspecified; R90.82 White matter disease, unspecified; R94.31 Abnormal electrocardiogram [ECG] [EKG]; I25.10 Atherosclerotic heart disease of native coronary artery without angina pectoris; I25.5 Ischemic cardiomyopathy; J43.0 Unilateral pulmonary emphysema [MacLeod's syndrome]; Z95.1 Presence of aortocoronary bypass graft; Z95.0 Presence of cardiac pacemaker; Z87.891 Personal history of nicotine dependence; Z79.82 Long term (current) use of aspirin; Z79.01 Long term (current) use of anticoagulants; Z79.51 Long term (current) use of inhaled steroids; Z79.899 Other long term (current) drug therapy
CPT/HCPCS: 36415; 70450; 71046; 80053; 80307; 81003; 83605; 83735; 84443; 84484; 85025; 85610; 85730; 93005; 95816; 96360; 99285; A9270; G0378; J7030

== ENCOUNTER 2023-06-23 13:46 | Outpatient (CLI) | payer MEDICARE, SELFPAY ==
[2023-06-23 20:11] LABS: Anion Gap 7 mmol/L (8-16); Blood Urea Nitrogen 18 mg/dL (9-20); Calcium 8.8 mg/dL (8.4-10.2); Carbon Dioxide 26 mmol/L (22-30); Chloride 106 mmol/L (98-107); Cholesterol 229 mg/dL (0-200); Estimated Glomerular Filt Rate 42; Glucose 71 mg/dL (65-110); HDL Direct 59 mg/dL; Potassium 3.9 mmol/L (3.4-5.0); Sodium 139 mmol/L (137-145); Triglycerides 174 mg/dL (<150)
[2023-06-23 20:14] LABS: Basophils Absolute Auto 0.1 K/mm3 (0.0-0.1); Eosinophils Absolute Auto 0.3 K/mm3 (0-0.3); Eosinophils Percent Auto 4.1 % (0-4.4); Hematocrit 41.8 % (42.0-52.0); Hemoglobin 13.4 g/dL (14.0-18.0); Immature Granulocyte Absolute 0.04 K/mm3 (0.00-0.031); Immature Granulocyte Percent A 0.5 % (0-0.5); Lymphocytes Percent Auto 35.3 % (18.3-44.2); Mean Corpuscular HGB Conc 32.1 g/dl (32-36); Mean Corpuscular Hemoglobin 31.8 pg (26-34); Mean Corpuscular Volume 99.1 fl (80-100); Mean Platelet Volume 9.6 fl (7.4-10.4); Monocytes Absolute Auto 0.7 K/mm3 (0.1-0.6); Monocytes Percent Auto 9.9 % (2.6-8.5); Neutrophils Absolute Auto 3.6 K/mm3 (1.3-6.7); Neutrophils Percent Auto 49.2 % (45.5-73.1); Platelet Count Result 195 k/mm3 (150-375); Red Blood Count 4.22 M/mm3 (4.6-6.20); Red Cell Distribution Width 13.2 % (11.5-14.5); White Blood Count 7.4 K/mm3 (4.5-10.0)
[2023-06-23 20:22] LABS: LDL Cholesterol Direct 113 mg/dL
== END 2023-06-23 13:47 | disposition home or self-care (01) ==
LOC: ANHBWCLAB 13:47
PROVIDERS: PCP Nurse Practitioner Adult Health; Visit Provider Nurse Practitioner Adult Health
DX: E78.5 Hyperlipidemia, unspecified (principal); E03.9 Hypothyroidism, unspecified
CPT/HCPCS: 36415; 80048; 80061; 84443; 85025

== ENCOUNTER 2023-12-26 13:24 | Outpatient (CLI) | payer MEDICARE, SELFPAY ==
[2023-12-26 18:58] LABS: Basophils Absolute Auto 0.1 K/mm3 (0.0-0.1); Basophils Percent Auto 0.9 % (0.2-1.2); Eosinophils Absolute Auto 0.2 K/mm3 (0-0.3); Eosinophils Percent Auto 2.7 % (0-4.4); Hematocrit 43.6 % (42.0-52.0); Hemoglobin 14.3 g/dL (14.0-18.0); Immature Granulocyte Absolute 0.04 K/mm3 (0.00-0.031); Immature Granulocyte Percent A 0.6 % (0-0.5); Lymphocytes Absolute Auto 2.58 K/mm3 (0.9-3.2); Mean Corpuscular HGB Conc 32.8 g/dl (32-36); Mean Corpuscular Hemoglobin 31.7 pg (26-34); Mean Corpuscular Volume 96.7 fl (80-100); Mean Platelet Volume 9.4 fl (7.4-10.4); Monocytes Absolute Auto 0.6 K/mm3 (0.1-0.6); Monocytes Percent Auto 8.8 % (2.6-8.5); Neutrophils Absolute Auto 3.2 K/mm3 (1.3-6.7); Platelet Count Result 196 k/mm3 (150-375); Red Blood Count 4.51 M/mm3 (4.6-6.20); Red Cell Distribution Width 13.4 % (11.5-14.5); White Blood Count 6.6 K/mm3 (4.5-10.0)
[2023-12-26 23:23] LABS: Alanine Aminotransferase 15 U/L (6-50); Albumin Level 4.6 g/dL (3.5-5.1); Alkaline Phosphatase 58 U/L (38-126); Anion Gap 10 mmol/L (4-12); Aspartate Amino Transferase 47 U/L (17-59); Bilirubin,Total 0.6 mg/dL (0.2-1.3); Blood Urea Nitrogen 23 mg/dL (9-20); Calcium 9.2 mg/dL (8.4-10.2); Carbon Dioxide 23 mmol/L (22-30); Chloride 105 mmol/L (98-107); Cholesterol 235 mg/dL (0-200); Estimated Glomerular Filt Rate 37; Glucose 89 mg/dL (65-110); HDL Direct 62 mg/dL; Potassium 4.2 mmol/L (3.4-5.0); Sodium 138 mmol/L (137-145); Triglycerides 115 mg/dL (<150)
[2023-12-26 23:34] LABS: LDL Cholesterol Direct 130 mg/dL
[2023-12-26 23:51] LABS: Prostate Specific Antigen 1.5 ng/mL (< OR = 4.0)
[2023-12-27 02:55] LABS: Hemoglobin A1C 5.6 % (<5.7)
== END 2023-12-26 13:25 | disposition home or self-care (01) ==
PROVIDERS: PCP Nurse Practitioner Adult Health; Visit Provider Nurse Practitioner Adult Health
DX: Z12.5 Encounter for screening for malignant neoplasm of prostate (principal); E78.5 Hyperlipidemia, unspecified; Z79.899 Other long term (current) drug therapy
CPT/HCPCS: 36415; 80053; 80061; 83036; 84153; 84443; 85025; G0103

== ENCOUNTER 2024-01-05 09:43 | Outpatient (CLI) | payer MEDICARE, SELFPAY ==
--- NOTE | ~2024-01-05 | XR_ITS ---
EXAMINATION: 1. XR humerus RT 2. XR shoulder RT min 2V DATE: 01/05/2024 09:56 INDICATION: Unspecified fall, initial encounter. TECHNIQUE: 2 views of right humerus and 4 views of right shoulder were obtained. COMPARISON: None. FINDINGS: RIGHT SHOULDER: There is a comminuted fracture of proximal right humerus with displaced fracture frag ments of the greater tuberosity. At the surgical neck, there is impaction and 5 mm posterior displace ment. There is mild osteoarthritis of glenohumeral joint and acromioclavicular joint. RIGHT HUMERUS: Again seen is the comminuted fracture of proximal right humerus. There is normal align ment at the elbow. Elbow joint space is normal. IMPRESSION: 1. Comminuted fracture of proximal right right humerus. 2. Mild polyarticular osteoarthritis. Reviewed, dictated and finalized at location A. IMPRESSION: 1. Comminuted fracture of proximal right right humerus. 2. Mild polyarticular osteoarthritis.
== END 2024-01-05 09:44 | disposition home or self-care (01) ==
LOC: ANHBWCIMG 09:44
PROVIDERS: PCP Nurse Practitioner Adult Health; Visit Provider Nurse Practitioner Adult Health
DX: S42.251A Displaced fracture of greater tuberosity of right humerus, initial encounter for closed fracture (principal); M19.011 Primary osteoarthritis, right shoulder; W19.XXXA Unspecified fall, initial encounter
CPT/HCPCS: 73030; 73060

== ENCOUNTER 2024-06-27 13:28 | Outpatient (CLI) | payer MEDICARE, SELFPAY ==
[2024-06-27 18:34] LABS: Basophils Absolute Auto 0.1 K/mm3 (0.0-0.1); Basophils Percent Auto 1.1 % (0.2-1.2); Eosinophils Absolute Auto 0.2 K/mm3 (0-0.3); Eosinophils Percent Auto 2.6 % (0-4.4); Hematocrit 42.1 % (42.0-52.0); Immature Granulocyte Absolute 0.03 K/mm3 (0.00-0.031); Immature Granulocyte Percent A 0.5 % (0-0.5); Lymphocytes Absolute Auto 2.38 K/mm3 (0.9-3.2); Lymphocytes Percent Auto 36.8 % (18.3-44.2); Mean Corpuscular HGB Conc 33.3 g/dl (32-36); Mean Corpuscular Hemoglobin 32.6 pg (26-34); Mean Corpuscular Volume 97.9 fl (80-100); Mean Platelet Volume 9.9 fl (7.4-10.4); Monocytes Absolute Auto 0.5 K/mm3 (0.1-0.6); Neutrophils Absolute Auto 3.3 K/mm3 (1.3-6.7); Platelet Count Result 185 k/mm3 (150-375); Red Cell Distribution Width 13.3 % (11.5-14.5); White Blood Count 6.5 K/mm3 (4.5-10.0)
[2024-06-27 19:17] LABS: Alanine Aminotransferase 16 U/L (6-50); Albumin Level 4.4 g/dL (3.5-5.1); Alkaline Phosphatase 52 U/L (38-126); Anion Gap 4 mmol/L (4-12); Aspartate Amino Transferase 77 U/L (17-59); Bilirubin,Total 0.8 mg/dL (0.2-1.3); Blood Urea Nitrogen 22 mg/dL (9-20); Calcium 9.5 mg/dL (8.4-10.2); Carbon Dioxide 29 mmol/L (22-30); Chloride 103 mmol/L (98-107); Cholesterol 239 mg/dL (0-200); Estimated Glomerular Filt Rate 42; Glucose 96 mg/dL (65-110); HDL Direct 57 mg/dL; Magnesium 2.4 mg/dL (1.6-2.3); Potassium 4.5 mmol/L (3.4-5.0); Sodium 136 mmol/L (137-145); Triglycerides 110 mg/dL (<150)
[2024-06-27 19:23] LABS: Thyroid Stimulating Hormone Reflex 0.107 uIU/mL (0.465-4.68)
[2024-06-27 19:28] LABS: LDL Cholesterol Direct 122 mg/dL
[2024-06-27 20:43] LABS: Free T4 Free Thyroxine Reflex 1.84 ng/dL (0.78-2.19)
[2024-06-27 21:31] LABS: Total Triiodothyronine (T3) 0.96 NG/ML (0.97-1.69)
== END 2024-06-27 13:29 | disposition home or self-care (01) ==
LOC: ANHBWCLAB 13:29
PROVIDERS: PCP Nurse Practitioner Adult Health; Visit Provider Nurse Practitioner Adult Health
DX: I10 Essential (primary) hypertension (principal)
CPT/HCPCS: 36415; 80053; 80061; 83735; 84439; 84443; 84480; 85025

== ENCOUNTER 2024-12-26 10:17 | Outpatient (CLI) | payer MEDICARE, SELFPAY ==
--- OUTSIDE RECORDS SUMMARY | 2024-12-26 11:42 | XMS_ITS | Encounter Summary ---
Author Organization [facility] Address 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 Gender Identity Not on file Sexual Orientation Not on file documented as of this encounter Last Filed Vital Signs Vital Sign Reading Time Taken Comments Blood Pressure 119/70 02/10/2004 9:45 AM CDT Pulse - - Temperature - - Respiratory Rate - - Oxygen Saturation - - Inhaled Oxygen Concentration - - Weight 75.8 kg (167 lb) 02/10/2004 9:45 AM CDT Height - - Body Mass Index - - documented in this encounter Plan of Treatment Not on file documented as of this encounter Visit Diagnoses Not on filedocumented in this encounter Care Teams Family Assistant Relationship Specialty Start Date End Date Vince Turcios MD PCP - General Family Practice 10/28/21 documented as of this encounter
--- OUTSIDE RECORDS SUMMARY | 2024-12-26 11:42 | XMS_ITS | Encounter Summary ---
Author Organization [facility] Address 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
--- OUTSIDE RECORDS SUMMARY | 2024-12-26 11:42 | XMS_ITS | Clinical Summary ---
Author Organization [facility] Dusty Munguiaedwige Address [address] [place] [address] Care Team Providers Care Cub Reporter Name Role Phone Vince Turcios MD Primary Care Provider [phone] Allergies Active Allergy Reactions Criticality Noted Date Comments No Known Allergies 02/10/2004 Medications clopidogreL (PLAVIX) 75 mg Tablet Take 75 mg by mouth daily. 10/26/2021 Active pravastatin (PRAVACHOL) 10 mg tablet Take 10 mg by mouth daily. Active coenzyme Q10 100 mg Capsule Take 100 mg by mouth daily. Active furosemide (LASIX) 40 mg tablet Take 40 mg by mouth daily. 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 08/17/2004 Other and unspecified hyperlipidemia 02/10/2004 Tobacco use disorder 02/10/2004 Osteoarthrosis, unspecified whether generalized or localized, unspecified site 02/10/2004 Immunizations Immunization Administration Dates Next Due (PNEUMOVAX 23)(50 YRS UP) PN EUMOCOCCAL POLYSACCHARIDE (PPV23) 0.5 ML, IM 04/03/2001 (TDVAX)(7 YRS UP) TETANUS AN D DIPHTHERIA TOXOIDS, ADSORBED (2 LF OF TETANUS TOXOID AND 2 LF OF DIPHTHERIA TOXOID), 0.5ML (PF), IM 09/24/2002 Family History Relation Name Status Comments Brother 1 Alive Brother 2 Alive Daughter 1 Alive Daughter 2 Alive Daughter 3 Alive Father Mother Sister Alive Social History Tobacco Use Types Packs/Day Years Used Date Smoking Tobacco: Former Cigarettes 0.5 60 0 [birth year]/11/1957 - 07/11/2017 Smokeless Tobacco: Never Tobacco Cessation:Counseling Given: Not Answered Comments:quit about a year ago when went in hospital Alcohol Use Standard Drinks/Week Comments Yes 0 (1 standard drink = 0.6 oz pur e alcohol) occasional Sex and Gender Information Value Date Recorded Sex Assigned at Not on file Legal Sex 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 Gender Identity Not on file Sexual Orientation Not on file Last Filed Vital Signs Vital Sign Reading Time Taken Comments Blood Pressure 152/69 05/24/2022 11:58 AM ADJUSTMENT SUPERVISOR Pulse 100 05/24/2022 11:58 AM ADJUSTMENT SUPERVISOR Temperature 36.4 C (97.5 F) 05/24/2022 11:58 AM ADJUSTMENT SUPERVISOR Respiratory Rate 12 05/24/2022 11:5 8 AM ADJUSTMENT SUPERVISOR Oxygen Saturation 95% 05/24/2022 11: 58 AM ADJUSTMENT SUPERVISOR Inhaled Oxygen Concentration - - Weight 68.9 kg (151 lb 12.8 oz) 022 11:58 AM ADJUSTMENT SUPERVISOR Height 167.6 cm (5' 6) 05/24/2022 11:5 8 AM ADJUSTMENT SUPERVISOR Body Mass Index 24.5 05/24/2022 11:58 AM ADJUSTMENT SUPERVISOR Plan of Treatment Health Maintenance Due Date Last Done Comments ZOSTER VACCINE (1 of 2) 01/02/1998 PNEUMOCOCCAL VACCINE 50+ YEARS (2 of 2 - PCV) 04/03/20 02 04/03/2001 DTAP/TDAP/TD VACCINES (1 - Tdap) 09/25/2002 09/25/19 03 RSV VACCINE (60+ or ) (1 - 1-dose 75+ series) 01/02/2023 INFLUENZA VACCINE (#1) 2024 Colorectal Cancer Screening Discontinued FIT/FOBT Q 1 year Discontinued 05/24/2005 COLORECTAL SCREENING Discontinued FIT-DNA Q 3 years Discontinued Flex Sig/CT Colonography Q 5 years Discontinued Insurance [facility] MCR Care Teams Cub Reporter Relationship Specialty Start Date End Date Vince Turcios MD PCP - General Family Practice 10/28/21
--- OUTSIDE RECORDS SUMMARY | 2024-12-26 11:42 | XMS_ITS | Encounter Summary ---
Author Organization [facility] Address [address] [place] [address] Care Team Providers Care Dial Screw Assembler Name Role Phone Vince Turcios MD Primary Care Provider [phone] Encounter Details Date Type Department Care Team (Late st Contact Info) Description 05/24/2005 Outpatient Historical 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
--- OUTSIDE RECORDS SUMMARY | 2024-12-26 11:42 | XMS_ITS | Clinical Summary ---
Author Organization [facility] Address [address] [place] [id number] Care Team Providers Care Rand Butting Machine Operator Name Role Phone Unavailable Primary Care Provider Unavailabl e Allergies No known active allergies Medications donepezil (ARICEPT) 10 MG tablet Take 10 mg by mouth every night Active escitalopram (LEXAPRO) 10 MG tablet Take 10 mg by mouth 1 (one) time each day Active albuterol HFA (PROVENTIL HFA;VENTOLIN HFA) 108 (90 Base) MCG/ACT inhaler Inhale 2 puffs every 6 (six) hours if needed Active Diclofenac Sodium 1 % gel Apply topically 4 times a day To fractured rib area Active coenzyme Q-10 10 MG capsule Take 10 mg by mouth 1 (one) time each day Active aspirin (ST ORTIZ) 81 MG EC tablet Take 81 mg by mouth 1 (one) time each day Active docusate sodium (COLACE) 100 MG capsule Take 100 mg by mouth in the morning and 100 mg in the evening. Active spironolactone (ALDACTONE) 25 MG tablet Take 25 mg by mouth 1 (one) time each day Active carvedilol (COREG) 3.125 MG tablet Take 3.125 mg by mouth in the morning and 3.125 mg in the evening. Take with meals. Active losartan (COZAAR) 25 MG tablet Take 25 mg by mouth 1 (one) time each day Active levothyroxine (SYNTHROID, LEVOTHROID) 150 MCG tablet Take 150 mcg by mouth 1 (one) time each day Active tamsulosin (FLOMAX) 0.4 MG 24 hr capsule Take 0.4 mg by mouth 1 (one) time each day Active Family History Medical History Relation Comments Heart failure Maternal Grandmother Alzheimer's disease Mother Relation Status Comments Maternal Grandmother Mother Social History Tobacco Use Types Packs/Day Years Used Date Smoking Tobacco: Former Cigarettes 0.5 20 Smokeless Tobacco: Never Alcohol Use Standard Drinks/Week Comments Not Currently 0 (1 standard drink = 0.6 oz pur e alcohol) Sex and Gender Information Value Date Recorded Sex Assigned at Not on file Legal Sex Male 11:29 AM EST Gender Identity Not on file Sexual Orientation Not on file Plan of Treatment Health Maintenance Due Date Last Done Comments Pneumococcal Vaccine: 50+ Ye ars (2 of 2 - PCV) 04/03/2002 04/03/2001 Influenza Vaccine (Season Ended) 2025 Hepatitis B Vaccine Aged Out No longe r eligible based on patient's age to complete this topic
--- OUTSIDE RECORDS SUMMARY | 2024-12-26 11:42 | XMS_ITS | Encounter Summary ---
Author Organization [facility] Address [address] [place] [address] Care Team Providers Care Corporate Accounting Manager Name Role Phone Vince Turcios MD Primary Care Provider [phone] Encounter Details Date Type Department Care Team (Late st Contact Info) Description 08/17/2004 Outpatient Historical [facility] Internal Medicine [address] [phone] Greg Solorio MD [address] [place] [phone] Social History Tobacco Use Types Packs/Day Years Used Date Smoking Tobacco: Never Assessed Sex and Gender Information Value Date Recorded Sex Assigned at Not on file Legal Sex Male 3:54 AM SALES 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 Gender Identity Not on file Sexual Orientation Not on file documented as of this encounter Last Filed Vital Signs Vital Sign Reading Time Taken Comments Blood Pressure 130/80 08/17/2004 9:30 AM SALES 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 Pulse - - Temperature - - Respiratory Rate - - Oxygen Saturation - - Inhaled Oxygen Concentration - - Weight 74.4 kg (164 lb) 08/17/2004 9:30 AM SALES 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 Height - - Body Mass Index - - documented in this encounter Plan of Treatment Not on file documented as of this encounter Visit Diagnoses Not on filedocumented in this encounter Care Teams Corporate Accounting Manager Relationship Specialty Start Date End Date Vince Turcios MD PCP - General Family Practice 10/28/21 documented as of this encounter
--- OUTSIDE RECORDS SUMMARY | 2024-12-26 11:42 | XMS_ITS | Encounter Summary ---
Author Organization [facility] Address [address] [place] [address] Care Team Providers Care System Sales Consultant Name Role Phone Vince Turcios MD Primary Care Provider [phone] Encounter Details Date Type Department Care Team (Late st Contact Info) Description 11/15/2005 Outpatient Historical [facility] Internal Medicine [address] [phone] Greg Solorio MD [address] [place] [phone] Social History Tobacco Use Types Packs/Day Years Used Date Smoking Tobacco: Never Assessed Sex and Gender Information Value Date Recorded Sex Assigned at Not on file Legal 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 Gender Identity Not on file Sexual Orientation Not on file documented as of this encounter Last Filed Vital Signs Vital Sign Reading Time Taken Comments Blood Pressure 110/80 11/15/2005 9:30 AM CDT Pulse - - Temperature - - Respiratory Rate - - Oxygen Saturation - - Inhaled Oxygen Concentration - - Weight 77.1 kg (170 lb) 11/15/2005 9:30 AM CDT Height - - Body Mass Index - - documented in this encounter Plan of Treatment Not on file documented as of this encounter Visit Diagnoses Not on filedocumented in this encounter Care Teams System Sales Consultant Relationship Specialty Start Date End Date Vince Turcios MD PCP - General Family Practice 10/28/21 documented as of this encounter
--- OUTSIDE RECORDS SUMMARY | 2024-12-26 11:42 | XMS_ITS ---
Author Organization [facility] Virtual Care Address [address] [place] [phone] Phone Care Team Providers Care Family Nurse Name Role Phone Jhony Baumann MD Unavailable [phone] Pineda Soliman MD Unavailable [phone] Estrella Michael NP Primary Care Provider [phone] Active Problems Problem Noted Date Diagnosed Date Cardiac pacemaker in situ 11/30/2022 Overview (11/30/2022): Biotronik Edora Dual Pacemaker. Dx; Sinus Node Dysfunction. DOI 11/30/2022- Pastor. Biotronik remtote monitoring. T12 burst fracture 10/20/2022 S/P aortic valve replacement 12/25/2020 Hx of CABG 12/25/2020 Ischemic cardiomyopathy 12/25/2020 Wound of sternal region 11/14/2020 Overview (11/18/2020): Added automatically from request for surgery [id number] Syncope and collapse 02/26/2018 Sinus node dysfunction 02/26/2018 Vasovagal syncope 02/26/2018 Heart murmur 02/26/2018 High blood pressure 02/26/2018 Malignant neoplasm of skin of face 08/17/2004 Tobacco use disorder 02/10/2004 Osteoarthritis 02/10/2004 Other and unspecified hyperlipidemia 02/10/2004 Current Treatment and Therapy Plans No current plan information found. Past Treatment and Therapy Plans No past plan information found. Lifetime Dose Tracking * Chemical Lifetime Dose Automatic Entry Manual Entr y Fluoro Time 1.03 minutes 1.03 minutes 0 minutes Air kerma at the reference point (Ka,r) 18.83 mGy 1 8.83 mGy 0 mGy DLP 1,652 mGycm 1,652 mGycm 0 mGycm Resolved Problems Problem Noted Date Diagnosed Date Resolved Date Coronary artery disease invo lving [place] coronary artery of [place] heart with unstable angina pectoris 11/30/2020 11/30/2020 Cardiac disease 11/14/2020 11/30/2020 Aortic valve stenosis 2020
--- OUTSIDE RECORDS SUMMARY | 2024-12-26 11:42 | XMS_ITS | Referral Summary ---
Author Organization [facility] Virtual Care Address [facility] [place] [address] Phone Care Team Providers Care Student Services Dean Name Role Phone Jhony Baumann MD Unavailable Pineda Soliman MD Unavailable Estrella Michael NP Primary Care Provider [phone] Encounters Date Type Department Care Team Description 12/19/2024 Orders Only [facility] Surgery [address] [facility] [address] [place] [address] Joo Whatley MD Nonrheumatic aortic valve stenosis (Primary Dx) 12/06/2024 4:34 PM CDT - 12/06/2024 11:59 PM CDT Hospital Encounter [address] [address] S/P lumbar fusion; T12 burst fracture (HCC); Balance problem Discharge Disposition: Discharge to home or self care 12/06/2024 4:33 PM CDT - 12/06/2024 11:59 PM CDT Hospital Encounter [address] [address] S/P lumbar fusion; T12 burst fracture (HCC); Balance problem Discharge Disposition: Discharge to home or self care 12/05/2024 Telephone [facility] [address] [place] [address] Kaila Huang 11/20/2024 9:15 AM CDT Ancillary Procedure [facility] Medical Group Cardiology [address] [facility] [address] [address] Cardiac pacemaker in situ [Z95.0] (Primary Dx); Sinus node dysfunction (HCC); Ischemic cardiomyopathy 11/12/2024 11:53 AM CDT - 11/12/2024 11:59 PM CDT Hospital Encounter [facility] Imaging [address] [place] [id number] S/P lumbar fusion Discharge Disposition: Discharge to home or self care 11/12/2024 11:53 AM CDT - 11/12/2024 11:59 PM CDT Hospital Encounter [facility] Imaging [address] [place] [address] S/P lumbar fusion Discharge Disposition: Discharge to home or self care 11/12/2024 1:15 PM CDT Office Visit [facility] Neurosurgery Center with [facility] Physicians [address] [facility] Medical Office Building [address] [facility] [place] [address] Dhara Lovelace NP S/P lumbar fusion (Primary Dx); T12 burst fracture (HCC); Balance problem 10/24/2024 Orders Only [facility] Neurosurgery [place] with [facility] Physicians [address] [facility] Medical Office Building [address] [place] [address] Pineda Soliman MD S/P lumbar fusion (Primary Dx) from Last 3 Months Allergies No known active allergies Medications albuterol HFA (PROVENTIL HFA,VENTOLIN HFA,PROAIR HFA) 90 mcg/actuation inhaler 2 Active donepeziL (ARICEPT) 10 mg tablet Take 1 tablet (10 mg total) by mouth nightly 3 Active escitalopram (LEXAPRO) 10 mg tablet Take 0.5 tablets (5 mg total) by mouth daily 3 Active carvediloL (COREG) 3.125 mg tablet TAKE 1 TABLET BY MOUTH TWICE A DAY WITH MEALS 180 tablet 1 3 Active clopidogreL (PLAVIX) 75 mg tablet Take 1 tablet (75 mg total) by mouth daily 3 Active levothyroxine (SYNTHROID) 88 mcg tablet Take 1 tablet (88 mcg total) by mouth instructor warper before breakfast 5 Active Active Problems Problem Noted Date Diagnosed Date Cardiac pacemaker in situ 11/30/2022 Overview (11/30/2022): Automatic [employer]ik Edora Dual Pacemaker. Dx; Sinus Node Dysfunction. DOI 11/30/2022- Pastor. Automatic [employer] remtote monitoring. T12 burst fracture 10/20/2022 S/P aortic valve replacement 12/25/2020 Hx of CABG 12/25/2020 Ischemic cardiomyopathy 12/25/2020 Wound of sternal region 11/14/2020 Overview (11/18/2020): Added automatically from request for surgery [id number] Syncope and collapse 02/26/2018 Sinus node dysfunction 02/26/2018 Vasovagal syncope 02/26/2018 Heart murmur 02/26/2018 High blood pressure 02/26/2018 Malignant neoplasm of skin of face 08/17/2004 Tobacco use disorder 02/10/2004 Osteoarthritis 02/10/2004 Other and unspecified hyperlipidemia 02/10/2004 Resolved Problems Problem Noted Date Diagnosed Date Resolved Date 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 4 or more times a week 10/20/2022 Q2: How many drinks containi ng alcohol do you have on a typical day when you are drinking? 1 or 2 Frequency of Binge Drinking Not on file 10/09 PHQ-2 Answer Date Recorded PHQ-2 Total Score (If total score is 3 or more points, staff should administer the PHQ-9) 0 11/14/2020 Personal Safety Answer Date Recorded Have you ever been in or are you currently in a harmful physical or emotional relationship or is someone making you feel afraid or unsafe? 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 Gender Identity Male 11/03/2022 11:02 AM CDT Sexual Orientation Straight 11/03/2022 11 :02 AM CDT Last Filed Vital Signs Vital Sign Reading Time Taken Comments Blood Pressure 147/82 11/12/2024 1:07 PM CDT Pulse 112 11/12/2024 1:07 PM CDT Temperature 36.6 C (97.9 F) 01/05/2024 11:15 AM CDT Respiratory Rate 16 01/05/2024 11:15 AM CDT Oxygen Saturation 95% 01/05/2024 2:00 PM CDT Inhaled Oxygen Concentration - - Weight 73.5 kg (162 lb 2 oz) 11/12/2024 1:07 PM CDT Height 167.6 cm (5' 5.98) 11/12/2024 1:07 PM CD T Body Mass Index 26.18 11/12/2024 1:07 PM CDT Plan of Treatment Not on file Medical Devices Implanted Type Area Divorce Mediator Device Identifier Shelf Expiration Date Model / Serial / Lot [employer] [id number] Inspiris Resilia Leaflet Sewing Ring 23mm Valve Aortic Bovine - [id number] - [id number] Implanted:Qty: 1 on 11/17/2020 by Joo Whatley MD at [facility] N/A: Heart [employer] 04/23/2024 [id number] / [id number] / [email or web address] Cardiovascular Fidelis [id number] Hemashield [place] 10mm 30cm Woven Smooth Needle Passage Suture - [id number] - [id number] Implanted:Qty: 1 on 11/17/2020 by Joo Whatley MD at [facility] [employer] 03/10/2025 [id number] / [id number] Glob[employer] Creo 5.5mm 50mm Cannulated Modular Spine Screw Bone 1067.4550 - [id number] Implanted:Qty: 3 on 10/22/2022 by Pinead Soliman MD at [facility] N/A: Spine Lumbar [employer] 1067.4550 / / [employer] Creo 6.5mm 50mm Cannulated Modular Spine Screw Bone 1067.4650 - [id number] Implanted:Qty: 2 on 10/22/2022 by Pineda Soliman MD at [facility] N/A: Spine Lumbar [employer] 1067.4650 / / [employer] 1134.011 Creo 10mm Polyaxial Modular Tulip Spinal Screw Bone Nonsterile - [id number] Implanted:Qty: 6 on 10/22/2022 by Pineda Soliman MD at [facility] N/A: Spine Lumbar [employer] 1134.0110 / / [employer] 1134.001 Creo Spinal Cap Locking Nonsterile Mis - [id number] Implanted:Qty: 6 on 10/22/2022 by Pineda Soliman MD at [facility] N/A: Spine Lumbar [employer] 1134.0010 / / [employer] 1134.509 Creo Mis 5.5mm 90mm Straight Daniel Spinal Titanium - [id number] Implanted:Qty: 2 on 10/22/2022 by Pineda Soliman MD at [facility] N/A: Spine Lumbar [employer] 1134.5090 / / [employer] 1134.01 Creo Mis 30mm Modular Polyaxial Tulip Head Screw Bone - [id number] Implanted:Qty: 3 on 10/22/2022 by Pineda Soliman MD at [facility] N/A: Spine Lumbar [employer] 1134.0100 / / Explanted Type Area Divorce Mediator Device Identifier Shelf Expiration Date Model / Serial / Lot [employer] Inc [id number] 5.5 Smartassist Catheter Device Ventricular Assist - [id number] - [id number] Implanted:Qty: 1 on 11/17/2020 by Joo Whatley MD at [facility] Explanted:Qty: 1 on 11/24/2020 by Joo Whatley MD [employer] 07/10/2022 [id number] / [id number] / Gl[employer] Creo 5.5mm 50mm Cannulated Modular Spine Screw Bone 1067.4550 - [id number] Explanted:Qty: 1 on 10/22/2022 at [facility] N/A: Spine Lumbar [employer] 1067.4550 / / [employer] 1134.011 Creo 10mm Polyaxial Modular Tulip Spinal Screw Bone Nonsterile - [id number] Explanted:Qty: 3 on 10/22/2022 at [facility] N/A: Spine Lumbar [employer] 1134.0110 / / [employer] 1134.001 Creo Spinal Cap Locking Nonsterile Mis - [id number] Explanted:Qty: 6 on 10/22/2022 at [facility] N/A: Spine Lumbar [employer] 1134.0010 / / Procedures Procedure Name Priority Date/Time Associated Diagnosis Comments CT THORACIC SPINE WO CONTRAST Schedule Routine, Read Routine (OP Routine) 12/06/2024 5:14 PM CDT S/P lumbar fusion T12 burst fracture (HCC) Balance problem CT LUMBAR SPINE WO CONTRAST Schedule Routine, Read Routine (OP Routine) 12/06/2024 5:14 PM CDT S/P lumbar fusion T12 burst fracture (HCC) Balance problem DEVICE CHECK - REMOTE Routine 11/20/2024 2:15 PM CDT Sinus node dysfunction (HCC) Ischemic cardiomyopathy XR LUMBAR SPINE AP LAT FLEX EX Schedule Routine, Read Routine (OP Routine) 11/12/2024 12:40 PM CDT S/P lumbar fusion XR SCOLIOSIS AP LAT Schedule Routine, Read Routine (OP Routine) 11/12/2024 12:40 PM CDT S/P lumbar fusion CT CHEST ABDOMEN WO CONTRAST ED 10/19/2022 11:50 PM CDT from Last 3 Months or Most Recently Relevant to Health Maintenance Results * CT Thoracic Spine WO Contrast (12/06/2024 5:14 PM CDT) Anatomical Region Laterality Modality Spine N/A Computed Tomogra phy 12/21/2024 9:29 AM CDT Narrative 12/21/2024 9:35 AM CDT EXAM DESCRIPTION: CT THORACIC SPINE WO CONTRAST REASON FOR STUDY: Spinal fusion, thoracic, follow up, assess bone health, fusion Follow up of spinal fusion, reports difficulty walking x a few months. TECHNIQUE: Axial images acquired through the thoracic spine without intravenous contrast. Images reviewed with lung, soft tissue and bone windows. Reconstructed coronal and sagittal MPR images reviewed. Images stored on PACS. Automated exposure control was used as a dose optimization technique for this examination. COMPARISON: Comparison 10/21/2022. FINDINGS: ALIGNMENT: Mild dextrocurvature of the upper thoracic spine. Alignment otherwise is normal.. VERTEBRAE: Redemonstrated is the burst fracture of T12 with retropulsion of the posterosuperior vertebral margin into the spinal canal. No other acute thoracic abnormality is identified. DISC HEIGHT: Disc space narrowing at every thoracic level. HARDWARE: There is posterior pedicle screw stabilization spanning T11 through L1. THORACIC DISCS T1-T12: There is stable narrowing of the spinal canal due to the retropulsion of the posterosuperior vertebral margin of T12 into the spinal canal. The degree of spinal canal stenosis is stable from previous. No progression. No high-grade cord impingement. SOFT TISSUES: No soft tissue masses. LOWER CERVICAL: Incompletely imaged. No significant osseous spinal stenosis or osseous foraminal stenosis. UPPER LUMBAR: Incompletely cardiac pacemaker wires partly visualized. other significant abnormality. IMPRESSION: Interval posterior thoracolumbar fusion of the T12 burst fracture with pedicle screws and rods spanning T11 through L1. Otherwise, stable appearance of the thoracic spine with stable burst fracture and stable spinal canal stenosis at this level. No new or acute abnormality. THIS IS AN ELECTRONICALLY VERIFIED FINAL REPORT 12/21/2024 9:35 AM - Electronically signed by Diana BOWIE Report ID: [id number] Reading Location: [id number] Procedure Note Miladis Vasquez MD - 12/21/2024 EXAM DESCRIPTION: CT THORACIC SPINE WO CONTRAST REASON FOR STUDY: Spinal fusion, thoracic, follow up, assess bonehealth, fusion Follow up of spinal fusion, reports difficulty walking x a few months. TECHNIQUE: Axial images acquired through the thoracic spine without intravenous contrast. Images reviewed with lung, soft tissue and bone windows. Reconstructed coronal and sagittal MPR images reviewed. Images stored on PACS. Automated exposure control was used as a dose optimization technique for this examination. COMPARISON: Comparison 10/21/2022. FINDINGS: ALIGNMENT: Mild dextrocurvature of the upper thoracic spine. Alignment otherwise is normal.. VERTEBRAE: Redemonstrated is the burst fracture of T12 with retropulsionof the posterosuperior vertebral margin into the spinal canal. No otheracute thoracic abnormality is identified. DISC HEIGHT: Disc space narrowing at every thoracic level. HARDWARE: There is posterior pedicle screw stabilization spanning T11 through L1. THORACIC DISCS T1-T12: There is stable narrowing of the spinal canal dueto the retropulsion of the posterosuperior vertebral margin of T12 into the spinal canal. The degree of spinal canal stenosis is stable fromprevious. No progression. No high-grade cord impingement. SOFT TISSUES: No soft tissue masses. LOWER CERVICAL: Incompletely imaged. No significant osseous spinalstenosis or osseous foraminal stenosis. UPPER LUMBAR: Incompletely cardiac pacemaker wires partly visualized. other significant abnormality. IMPRESSION: Interval posterior thoracolumbar fusion of the T12 burst fracture with pedicle screws and rods spanning T11 through L1. Otherwise, stable appearance of the thoracic spine with stable burstfracture and stable spinal canal stenosis at this level. No new or acuteabnormality. THIS IS AN ELECTRONICALLY VERIFIED FINAL REPORT 12/21/2024 9:35 AM - Electronically signed by Diana BOWIE Report ID: [id number] Reading Location: [id number] Dhara Lovelace NP IMG CT PROCEDURES Final Res ult * CT Lumbar Spine WO Contrast (12/06/2024 5:14 PM CDT) Anatomical Region Laterality Modality Spine N/A Computed Tomogra phy 12/21/2024 8:45 AM CDT Narrative 12/21/2024 9:27 AM CDT EXAM DESCRIPTION: CT LUMBAR SPINE WO CONTRAST REASON FOR STUDY: s/p thoracic/lumbar fusion, assess bone health and fusion Follow up of spinal fusion, reports difficulty walking x a few months. TECHNIQUE: Axial images acquired through the lumbar spine without intravenous contrast. Reconstructed coronal and sagittal MPR images reviewed. All images stored on PACS. Automated exposure control was used as a dose optimization technique for this examination. COMPARISON: CT thoracic spine 10/21/2022. FINDINGS: SEGMENTATION: No transitional anatomy. The lowest well-developed disc space is labeled L5-S1. ALIGNMENT: Stable mild degenerative anterolisthesis of L4 on L5 and slight degenerative retrolisthesis of L2 on L3.. Lumbar alignment otherwise is normal. VERTEBRAE: There are postoperative changes with pedicle screw and spinal daniel stabilization spanning T11 through L1. The lumbar vertebral height is maintained. The burst fracture of T12 is noted and appears stable in alignment. Slightly increased bone density within the T12 vertebral body likely represents progression of healing given the interval stabilization. DISC HEIGHT: Disc degeneration at several lumbar levels, see below. HARDWARE: Pedicle screws and spinal rods stabilizing T11 through L1. INDIVIDUAL DISC LEVELS: THORACOLUMBAR: There is stable spinal canal stenosis at T11-T12 due to the retropulsion of the posterosuperior vertebral margin into the spinal canal. This is unchanged from prior. L1-2: Moderate spinal stenosis due to thickening of ligaments and diffuse annular bulge. There is severe bilateral foraminal narrowing. Findings are stable L2-3: Disc space narrowing with thickening of posterior ligaments and facet hypertrophy. Severe spinal stenosis and bilateral foraminal narrowing. No change. L3-4: Severe spinal stenosis due to thickening of ligaments and facet hypertrophy in conjunction with diffuse bulge. Severe subarticular stenosis. [id number]-xhtcuibf right foraminal narrowing. Mild left foraminal narrowing. Findings are stable L4-5: Severe spinal stenosis with effacement of thecal sac CSF due to a combination of degenerative anterolisthesis, thickening of ligaments and uncovering of the posterior margin. Severe subarticular stenosis and severe bilateral foraminal narrowing. Findings are stable. L5-S1: There is tapering of the distal thecal sac due to epidural lipomatosis and anatomic configuration. There is bilateral foraminal narrowing due to lateral endplate osteophytic spurs. Findings are stable. VISUALIZED RIBS: No fractures. SOFT TISSUES: No significant or acute finding in adjacent soft tissues. OTHER: No other significant finding. There is IMPRESSION: 1. Interval stabilization of the T12 burst fracture with pedicle screw and spinal rods spanning T11 through L1. Stable alignment of the burst fracture of T12 with retropulsion of the posterosuperior vertebral margin into the spinal canal. Some evidence of increased bone formation within the T12 vertebral body likely representing healing related to the stabilization. 2. Stable multilevel severe spinal stenosis with near-complete thecal sac CSF effacement, multilevel foraminal narrowing and subarticular stenosis related to disc degeneration, facet arthritis and hypertrophic ligamentous thickening at L2-3, L3-4 and L4-5 levels. 3. Stable multilevel foraminal narrowing, most evident at L4-5 and L5-S1. THIS IS AN ELECTRONICALLY VERIFIED FINAL REPORT 12/21/2024 9:27 AM - Electronically signed by Diana Vasquez M.D. LC: JAMIR Report ID: [id number] Reading Location: [id number] Procedure Note Miladis Vasquez MD - 12/21/2024 EXAM DESCRIPTION: CT LUMBAR SPINE WO CONTRAST REASON FOR STUDY: s/p thoracic/lumbar fusion, assess bone health andfusion Follow up of spinal fusion, reports difficulty walking x a few months. TECHNIQUE: Axial images acquired through the lumbar spine withoutintravenous contrast. Reconstructed coronal and sagittal MPR images reviewed. Allimages stored on PACS. Automated exposure control was used as a dose optimization technique forthis examination. COMPARISON: CT thoracic spine 10/21/2022. FINDINGS: SEGMENTATION: No transitional anatomy. The lowest well-developed discspace is labeled L5-S1. ALIGNMENT: Stable mild degenerative anterolisthesis of L4 on L5 andslight degenerative retrolisthesis of L2 on L3.. Lumbar alignment otherwise is normal. VERTEBRAE: There are postoperative changes with pedicle screw and spinalrod stabilization spanning T11 through L1. The lumbar vertebral height is maintained. The burst fracture of T12 is noted and appears stable in alignment. Slightly increased bone density within the T12 vertebral body likely represents progression of healing given the interval stabilization. DISC HEIGHT: Disc degeneration at several lumbar levels, see below. HARDWARE: Pedicle screws and spinal rods stabilizing T11 through L1. INDIVIDUAL DISC LEVELS: THORACOLUMBAR: There is stable spinal canal stenosis at T11-T12 due tothe retropulsion of the posterosuperior vertebral margin into the spinalcanal. This is unchanged from prior. L1-2: Moderate spinal stenosis due to thickening of ligaments anddiffuse annular bulge. There is severe bilateral foraminal narrowing. Findingsare stable L2-3: Disc space narrowing with thickening of posterior ligaments andfacet hypertrophy. Severe spinal stenosis and bilateral foraminal narrowing.No change. L3-4: Severe spinal stenosis due to thickening of ligaments and facet hypertrophy in conjunction with diffuse bulge. Severe subarticularstenosis. Lmbq-ri-zrthhclw right foraminal narrowing. Mild left foraminalnarrowing. Findings are stable L4-5: Severe spinal stenosis with effacement of thecal sac CSF due to a combination of degenerative anterolisthesis, thickening of ligaments and uncovering of the posterior margin. Severe subarticular stenosis andsevere bilateral foraminal narrowing. Findings are stable. L5-S1: There is tapering of the distal thecal sac due to epidurallipomatosis and anatomic configuration. There is bilateral foraminal narrowing due to lateral endplate osteophytic spurs. Findings are stable. VISUALIZED RIBS: No fractures. SOFT TISSUES: No significant or acute finding in adjacent soft tissues. OTHER: No other significant finding. There is IMPRESSION: 1. Interval stabilization of the T12 burst fracture with pedicle screwand spinal rods spanning T11 through L1. Stable alignment of the burstfracture of T12 with retropulsion of the posterosuperior vertebral margin into thespinal canal. Some evidence of increased bone formation within the T12 vertebral body likely representing healing related to the stabilization. 2. Stable multilevel severe spinal stenosis with near-complete thecalsac CSF effacement, multilevel foraminal narrowing and subarticular stenosis related to disc degeneration, facet arthritis and hypertrophic ligamentous thickening at L2-3, L3-4 and L4-5 levels. 3. Stable multilevel foraminal narrowing, most evident at L4-5 andL5-S1. THIS IS AN ELECTRONICALLY VERIFIED FINAL REPORT 12/21/2024 9:27 AM - Electronically signed by Diana Vasquez M.D. 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 Dx; SND. DOI 11/30/2022-Pastor. Biotronik remtote monitoring. Routine DDD Pacemaker Remote. Transmission attached. Battery status-Ok, 85% remaining to ELMO. Stable lead impedances, pacing and sensing thresholds. Presenting rhythm: -VS. AP-22 %, COPY AND PRINT ASSOCIATE-0 %. No AT/AF episodes noted. No Ventricular high rate episodes detected. Medication: Plavix, Coreg. Follow up: office pacemaker scheduled 05/01/2025. [place] remote f/u 02/26/2025. Berta Christine RN Jhony Baumann MD [facility] PROC EDURES Final Result * XR Spine Lumbar Ap Lat Flex Ext min 4 Views (11/12/2024 12:40 PM CDT) Anatomical Region Laterality Modality L-spine N/A Computed Radiogr aphy 11/12/2024 2:58 PM CDT Impressions 11/12/2024 2:58 PM CDT Comparison radiographs are dated 11/01/2023. Lumbar spine: Postsurgical changes of instrumented posterior spinal fusion, T11-L1. 5 nonrib-bearing lumbar vertebral bodies. Chronic compression deformity of T12 with anterior wedging. No acute vertebral body compression fractures. There is severe degenerative disc disease at the L1-L2 transitional level below the fusion, and more moderate degenerative disc disease at L2-L3. Grade I anterolisthesis of L4 on L5. Minimal retrolisthesis of L1 on L2 and L2 on L3. Moderate lower lumbar facet osteoarthritis. Extensive atherosclerotic plaque is seen in the thoracoabdominal aorta, as well as the axillary and superficial femoral arteries. Scoliosis radiographs: No spinal scoliosis. Minimal leftward drift of the spinal column at the level of the cervicothoracic junction. Moderate forward sagittal truncal imbalance. There are postsurgical changes of previous median sternotomy and coronary artery bypass grafting as well as aortic valve replacement. There is a left-sided transvenous pacemaker in place. Electronically signed by: Marco Montoya M.D. Narrative 11/12/2024 2:58 PM CDT EXAMINATION: XR SCOLIOSIS AP AND LATERAL, XR SPINE LUMBAR AP LAT FLEX EXT MIN 4 VIEWS Procedure Note Marco Montoya MD - 11/12/2024 EXAMINATION: XR SCOLIOSIS AP AND LATERAL, XR SPINE LUMBAR AP LAT FLEX EXT MIN 4 VIEWS IMPRESSION: Comparison radiographs are dated 11/01/2023. Lumbar spine: Postsurgical changes of instrumented posterior spinal fusion, T11-L1. 5 nonrib-bearing lumbar vertebral bodies. Chronic compression deformity of T12 with anterior wedging. No acute vertebral body compression fractures. There is severe degenerative disc disease at the L1-L2 transitional level below the fusion, and more moderate degenerative disc disease at L2-L3. Grade I anterolisthesis of L4 on L5. Minimal retrolisthesis of L1 on L2 and L2 on L3. Moderate lower lumbar facet osteoarthritis. Extensive atherosclerotic plaque is seen in the thoracoabdominal aorta, as well as the axillary and superficial femoral arteries. Scoliosis radiographs: No spinal scoliosis. Minimal leftward drift of the spinal column at the level of the cervicothoracic junction. Moderate forward sagittal truncal imbalance. There are postsurgical changes of previous median sternotomy and coronary artery bypass grafting as well as aortic valve replacement. There is a left-sided transvenous pacemaker in place. Electronically signed by: Marco Montoya M.D. Pineda Soliman MD IMG XR PROCEDURES Final Re sult * XR Scoliosis Ap and Lateral (11/12/2024 12:40 PM CDT) Anatomical Region Laterality Modality Spine N/A Computed Radiogr aphy 11/12/2024 2:58 PM CDT Impressions 11/12/2024 2:58 PM CDT Comparison radiographs are dated 11/01/2023. Lumbar spine: Postsurgical changes of instrumented posterior spinal fusion, T11-L1. 5 nonrib-bearing lumbar vertebral bodies. Chronic compression deformity of T12 with anterior wedging. No acute vertebral body compression fractures. There is severe degenerative disc disease at the L1-L2 transitional level below the fusion, and more moderate degenerative disc disease at L2-L3. Grade I anterolisthesis of L4 on L5. Minimal retrolisthesis of L1 on L2 and L2 on L3. Moderate lower lumbar facet osteoarthritis. Extensive atherosclerotic plaque is seen in the thoracoabdominal aorta, as well as the axillary and superficial femoral arteries. Scoliosis radiographs: No spinal scoliosis. Minimal leftward drift of the spinal column at the level of the cervicothoracic junction. Moderate forward sagittal truncal imbalance. There are postsurgical changes of previous median sternotomy and coronary artery bypass grafting as well as aortic valve replacement. There is a left-sided transvenous pacemaker in place. Electronically signed by: Marco Montoya M.D. Narrative 11/12/2024 2:58 PM CDT EXAMINATION: XR SCOLIOSIS AP AND LATERAL, XR SPINE LUMBAR AP LAT FLEX EXT MIN 4 VIEWS Procedure Note Marco Montoya MD - 11/12/2024 EXAMINATION: XR SCOLIOSIS AP AND LATERAL, XR SPINE LUMBAR AP LAT FLEX EXT MIN 4 VIEWS IMPRESSION: Comparison radiographs are dated 11/01/2023. Lumbar spine: Postsurgical changes of instrumented posterior spinal fusion, T11-L1. 5 nonrib-bearing lumbar vertebral bodies. Chronic compression deformity of T12 with anterior wedging. No acute vertebral body compression fractures. There is severe degenerative disc disease at the L1-L2 transitional level below the fusion, and more moderate degenerative disc disease at L2-L3. Grade I anterolisthesis of L4 on L5. Minimal retrolisthesis of L1 on L2 and L2 on L3. Moderate lower lumbar facet osteoarthritis. Extensive atherosclerotic plaque is seen in the thoracoabdominal aorta, as well as the axillary and superficial femoral arteries. Scoliosis radiographs: No spinal scoliosis. Minimal leftward drift of the spinal column at the level of the cervicothoracic junction. Moderate forward sagittal truncal imbalance. There are postsurgical changes of previous median sternotomy and coronary artery bypass grafting as well as aortic valve replacement. There is a left-sided transvenous pacemaker in place. Electronically signed by: Marco Montoya M.D. us Pineda Soliman MD IMG XR PROCEDURES Final Re sult * CT Chest Abdomen WO Contrast (10/19/2022 11:50 PM CDT) Anatomical Region Laterality Modality Body N/A Computed Tomogra phy 10/20/2022 12:4 0 AM CDT Narrative 10/20/2022 12:52 AM CDT EXAM DESCRIPTION: CT CHEST ABDOMEN WO CONTRAST REASON FOR STUDY: Trauma, pelvis already been done C/o fall this morning out of bed. Pt does not remember fall and is having lower back pain. Denies head and neck pain. Denies chest and abdominal pain. Hx of heart valve replacement TECHNIQUE: CT scan of the chest and abdomen performed without intravenous and without oral contrast using helical scanning technique. Reconstructed coronal and sagittal MPR images reviewed. All images stored on PACS. Automated exposure control was used as a dose optimization technique for this examination. COMPARISON: CT of the chest of November 16, [address] of the pelvis of October 19, 2022. REFERENCE: Per ACR white paper recommendations, unless otherwise specified no follow-up imaging is recommended for incidental renal and adrenal lesions per consensus recommendations based on imaging criteria. Further lab evaluation could be pursued based on clinical findings. FINDINGS: The sensitivity for detection of solid visceral lesions is diminished without the use of intravenous contrast. CHEST NECK BASE: Unremarkable on this non-contrast CT. HARDWARE/LINES/TUBES: Sternotomy wires are seen in place. Aortic valve replacement is noted. LYMPH NODES: No axillary, mediastinal or hilar lymphadenopathy is seen by CT size criteria on this non-contrast CT. MEDIASTINUM/GAMA: No masses seen. There is moderate to severe atherosclerosis of the aorta. There is severe coronary artery calcification. Heart size is normal. There is no significant pericardial effusion. There is a small hiatal hernia. PLEURA: No effusion. No pneumothorax. LUNGS: There is emphysema throughout the lungs. There is mild parenchymal scarring of the lung apices. There are small spiculated nodules around the periphery of the right upper lobe, unchanged from November 16, 2020 (series 3, image 43). The largest nodule measures 6 mm in diameter. CHEST WALL/BREAST: No masses. No subcutaneous air. MUSCULOSKELETAL: Burst fracture of T12 is again seen (please see complete detail under dictation of the thoracic spine of the same date). There is a small amount of hemorrhage in the paraspinal soft tissues adjacent to the T12 fracture. There are old healed fractures of the left 3rd and 4th ribs. There are healing fractures of the left 8th through 11th ribs posteriorly. OTHER: No other significant abnormality. ABDOMEN LIVER: The liver is normal in attenuation without focal lesion. GALLBLADDER: No stones identified. Normal wall. No evidence of pericholecystic fluid. BILE DUCTS: No intrahepatic or extrahepatic ductal dilatation. PANCREAS: Normal. SPLEEN: Normal size. No focal lesions. ADRENALS: Normal. KIDNEYS/URINARY TRACT: No identified significant cystic or solid masses. No visualized stones. No hydronephrosis or hydroureter. VASCULATURE: There is atherosclerosis of the aorta, its visceral and pelvic branches. GI: There is a small hiatal hernia. The stomach is otherwise unremarkable. There is no significant small bowel dilation or visible thickening. No gross colonic abnormalities identified. PERITONEUM/MESENTERY: No ascites or free air. LYMPH NODES: There are no enlarged lymph nodes seen by CT size criteria. MUSCULOSKELETAL: Multilevel degenerative disc disease and facet arthropathy is seen of the lumbar spine. There is mild anterolisthesis of L4 on L5 secondary to facet arthropathy. OTHER: No other abnormality. IMPRESSION: Burst fracture of T12. Please see dictation of the thoracic spine CT of the same date for additional detail. Healing fractures of the left 8th through 11th ribs posteriorly. Emphysema. Small nodules within the right upper lobe, unchanged from November 16, 2020. No additional imaging surveillance is required per Fleischner society guidelines. Atherosclerosis.. Small hiatal hernia. Multilevel degenerative disc disease and facet arthropathy of the lumbar spine. THIS IS AN ELECTRONICALLY VERIFIED FINAL REPORT 10/20/2022 12:52 AM - Electronically signed by Renetta eHrnandez M.D. SN: Report ID: [id number] Reading Location: [id number] Procedure Note Renetta Hernandez MD - 10/20/2022 EXAM DESCRIPTION: CT CHEST ABDOMEN WO CONTRAST REASON FOR STUDY: Trauma, pelvis already been done C/o fall this morning out of bed. Pt does not remember fall and is having lower back pain. Denies head and neck pain. Denies chest and abdominalpain. Hx of heart valve replacement TECHNIQUE: CT scan of the chest and abdomen performed without intravenousand without oral contrast using helical scanning technique. Reconstructed coronal and sagittal MPR images reviewed. All images stored on PACS. Automated exposure control was used as a dose optimization technique forthis examination. COMPARISON: CT of the chest of November 16, [address] of the pelvis of 2022. REFERENCE: Per ACR white paper recommendations, unless otherwise specifiedno follow-up imaging is recommended for incidental renal and adrenal lesionsper consensus recommendations based on imaging criteria. Further labevaluation could be pursued based on clinical findings. FINDINGS: The sensitivity for detection of solid visceral lesions is diminishedwithout the use of intravenous contrast. CHEST NECK BASE: Unremarkable on this non-contrast CT. HARDWARE/LINES/TUBES: Sternotomy wires are seen in place. Aortic valve replacement is noted. LYMPH NODES: No axillary, mediastinal or hilar lymphadenopathy is seen byCT size criteria on this non-contrast CT. MEDIASTINUM/GAMA: No masses seen. There is moderate to severe atherosclerosis of the aorta. There is severe coronary artery calcification. Heart size is normal. There is no significantpericardial effusion. There is a small hiatal hernia. PLEURA: No effusion. No pneumothorax. LUNGS: There is emphysema throughout the lungs. There is mildparenchymal scarring of the lung apices. There are small spiculated nodules aroundthe periphery of the right upper lobe, unchanged from November 16, 2020 (series 3,image 43). The largest nodule measures 6 mm in diameter. CHEST WALL/BREAST: No masses. No subcutaneous air. MUSCULOSKELETAL: Burst fracture of T12 is again seen (please see complete detail under dictation of the thoracic spine of the same date). There wade small amount of hemorrhage in the paraspinal soft tissues adjacent to theT12 fracture. There are old healed fractures of the left 3rd and 4th ribs. There are healing fractures of the left 8th through 11th ribs posteriorly. OTHER: No other significant abnormality. ABDOMEN LIVER: The liver is normal in attenuation without focal lesion. GALLBLADDER: No stones identified. Normal wall. No evidence of pericholecystic fluid. BILE DUCTS: No intrahepatic or extrahepatic ductal dilatation. PANCREAS: Normal. SPLEEN: Normal size. No focal lesions. ADRENALS: Normal. KIDNEYS/URINARY TRACT: No identified significant cystic or solid masses.No visualized stones. No hydronephrosis or hydroureter. VASCULATURE: There is atherosclerosis of the aorta, its visceral andpelvic branches. GI: There is a small hiatal hernia. The stomach is otherwiseunremarkable. There is no significant small bowel dilation or visible thickening. No gross colonic abnormalities identified. PERITONEUM/MESENTERY: No ascites or free air. LYMPH NODES: There are no enlarged lymph nodes seen by CT size criteria. MUSCULOSKELETAL: Multilevel degenerative disc disease and facetarthropathy is seen of the lumbar spine. There is mild anterolisthesis of L4 on L5 secondary to facet arthropathy. OTHER: No other abnormality. IMPRESSION: Burst fracture of T12. Please see dictation of the thoracic spine CT ofthe same date for additional detail. Healing fractures of the left 8th through 11th ribs posteriorly. Emphysema. Small nodules within the right upper lobe, unchanged from November 16, 2020.No additional imaging surveillance is required per Fleischner societyguidelines. Atherosclerosis.. Small hiatal hernia. Multilevel degenerative disc disease and facet arthropathy of the lumbar spine. THIS IS AN ELECTRONICALLY VERIFIED FINAL REPORT 10/20/2022 12:52 AM - Electronically signed by Renetta Hernandez M.D. SN: Report ID: [id number] Reading Location: [place] [address] Fay Alcala MD IMG CT PROCEDURES Final Result from Last 3 Months or Most Recently Relevant to Health Maintenance Insurance AETNA MEDICARE GOLD Member Subscriber Plan / Payer ( fective 2024-Present) Name:Eric Connor Relation to Subscriber:Self Name:Nikolas Eric Choudhury Payer ID:[id number] (NAIC) Type:AETNA MEDICARE Address: [address] [id number] AETNA MEDICARE GOLD T MEDICARE AETNA MEDICARE GOLD Advance Directives For more information, please contact: [phone] * Full Code (Latest Code Status on File) Date Activated Date Inactivated Comments 11/14/2020 10:06 PM 12/01/2020 11:57 AM Care Teams Student Services Dean Relationship Specialty Start Date End Date Estrella Michael NP [address] [place] [id number] PCP - General Nurse Practitioner 11/14/24 Jhony Baumann MD [address] [address] Consulting Physician Cardiology 10/26/22 Pineda Soliman MD [address] [address] Consulting Physician Neurosurgery 12/10/22
--- OUTSIDE RECORDS SUMMARY | 2024-12-26 11:42 | XMS_ITS | Clinical Summary ---
Author Organization [facility] Virtual Care Address [address] [place] [phone] Phone Care Team Providers Care Commercial Retoucher Name Role Phone Jhony Baumann MD Unavailable Pineda Soliman MD Unavailable [phone] Estrella Michael NP Primary Care Provider [phone] Allergies No known active allergies Medications albuterol [...] 1 tablet (88 mcg total) by mouth superintendent operating before breakfast Active Active Problems Problem Noted Date Diagnosed Date Cardiac pacemaker in situ 11/30/2022 Overview (11/30/2022): Biotronik Edora Dual Pacemaker. Dx; Sinus Node Dysfunction. DOI 11/30/2022- Biotronik remtote monitoring. T12 burst fracture 10/20/2022 S/P aortic valve replacement 12/25/2020 Hx of CABG 12/25/2020 Ischemic cardiomyopathy 12/25/2020 Wound of sternal region 11/14/2020 Overview (11/18/2020): Added automatically from request for surgery [id number] Syncope and collapse 02/26/2018 Sinus node dysfunction 02/26/2018 Vasovagal syncope 02/26/2018 Heart murmur 02/26/2018 High blood pressure 02/26/2018 Malignant neoplasm of skin of face 08/17/2004 Tobacco use disorder 02/10/2004 Osteoarthritis 02/10/2004 Other and unspecified hyperlipidemia 02/10/2004 Resolved Problems Problem Noted Date Diagnosed Date Resolved Date Coronary artery disease invo lving [place] coronary artery of [place] heart with unstable angina pectoris 11/30/2020 11/30/2020 Cardiac disease 11/14/2020 11/30/2020 Aortic valve stenosis 2020 Encounters Date Type Department Care Team Description 12/19/2024 Orders Only [facility] Surgery [address] [id number] Joo Whatley MD Nonrheumatic aortic valve stenosis (Primary Dx) 12/06/2024 4:34 PM CDT - 12/06/2024 11:59 PM CDT Hospital Encounter [facility] [address] [place] [address] S/P lumbar fusion; T12 burst fracture (HCC); Balance problem Discharge Disposition: Discharge to home or self care 12/06/2024 4:33 PM CDT - 12/06/2024 11:59 PM CDT Hospital Encounter [facility] [address] [place] [address] S/P lumbar fusion; T12 burst fracture (HCC); Balance problem Discharge Disposition: Discharge to home or self care 12/05/2024 Telephone [facility] [address] [place] [address] Kaila Huang 11/20/2024 9:15 AM CDT [address]illary Procedure [facility] Medical Group Cardiology [address] [facility] [address] [place] [address] Cardiac pacemaker in situ [Z95.0] (Primary Dx); Sinus node dysfunction (HCC); Ischemic cardiomyopathy 11/12/2024 1:15 PM CDT Office Visit [facility] Physicians [address] Medical [address] [place] [address] Dhara Lovelace NP S/P lumbar fusion (Primary Dx); T12 burst fracture (HCC); Balance problem 11/12/2024 11:53 AM CDT - 11/12/2024 11:59 PM CDT Hospital Encounter [facility] Imaging [address] [place] [address] S/P lumbar fusion Discharge Disposition: Discharge to home or self care 11/12/2024 11:53 AM CDT - 11/12/2024 11:59 PM CDT Hospital Encounter [address] [address] S/P lumbar fusion Discharge Disposition: Discharge to home or self care 10/24/2024 Orders Only [facility] Physicians [address] [facility] Medical Office Building [address] [facility] [place] [phone] Pineda Soliman MD S/P lumbar fusion (Primary Dx) from Last 3 Months Immunizations Immunization Administration Dates Next Due Pneumococcal Polysaccharide PPV23 04/03/2001 Td, adsorbed 09/24/2002 Surgical History Surgery Date Site/Laterality Comments CORONARY ARTERY BYPASS GRAFT 11/17/2020 3v AORTIC VALVE REPLACEMENT 11/17/2020 bioprosthetic ARM SURGERY fracture repair as teen LUMBAR FUSION 10/22/[address] 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 Gender Identity Male 11/03/2022 11:02 AM CDT Sexual Orientation Straight 11/03/2022 11 :02 AM CDT Obstetrics History Last Filed Vital Signs Vital Sign Reading [...] 11/12/2024 1:07 PM CDT Plan of Treatment Health Maintenance Due Date Last Done Comments Hepatitis C Screening 1950 Hepatitis B Screening 01/02/1966 Zoster Vaccine (1 of 2) 01/02/1998 Pneumococcal vaccine 65+ (2 of 2 - PCV) 04/03/2002 0 04/03/2001 DTaP/Tdap/Td Vaccine (1 - Tdap) 09/25/2002 3 Well Visit 65+ 01/02/2013 Depression Screening 11/17/2021 11/17/2020, 11/15/19 21 Fall Risk Assessment 10/27/2023 10/26/2022 Influenza Vaccine (Season Ended) 2025 Abdominal Aortic Aneurysm (AAA) Screen Completed Medical Devices Implanted Type Area Shotblast Equipment Operator Device Identifier Shelf Expiration Date Model / Serial / Lot Cast[employer] [id number] Inspiris Resilia Leaflet Sewing Ring 23mm Valve Aortic Bovine - [id number] - [id number] Implanted:Qty: 1 on 11/17/2020 by Joo Whatley MD at [facility] N/A: Heart [employer] 04/23/2024 [id number] / [id number] / Rachio [id number] Hemashield [place] 10mm 30cm Woven Smooth Needle Passage Suture - [id number] - [id number] Implanted:Qty: 1 on 11/17/2020 by Joo Whatley MD at [facility] [employer] 03/10/2025 [id number] / [id number] Globus [employer] Creo 5.5mm 50mm Cannulated Modular Spine Screw Bone 1067.4550 - [id number] Implanted:Qty: 3 on 10/22/2022 by Pineda Soliman MD at [facility] N/A: Spine Lumbar [employer] 1067.4550 / / [employer] Creo 6.5mm 50mm Cannulated Modular Spine Screw Bone 1067.4650 - [id number] Implanted:Qty: 2 on 10/22/2022 by Pineda Soliman MD at [facility] N/A: Spine Lumbar [employer] 1067.4650 / / [employer] 1134.011 Creo 10mm Polyaxial Modular Tulip Spinal Screw Bone Nonsterile - [id number] Implanted:Qty: 6 on 10/22/2022 by Pineda Soliman MD at [facility] N/A: Spine Lumbar [employer] 1134.0110 / / [employer] 1134.001 Creo Spinal Cap Locking Nonsterile Mis - [id number] Implanted:Qty: 6 on 10/22/2022 by Pineda Soliman MD at [facility] N/A: Spine Lumbar [employer] 1134.0010 / / [employer] 1134.509 Creo Mis 5.5mm 90mm Straight Daniel Spinal Titanium - [id number] Implanted:Qty: 2 on 10/22/2022 by Pineda Soliman MD at [facility] N/A: Spine Lumbar [employer] 1134.5090 / / [employer] 1134.01 Creo Mis 30mm Modular Polyaxial Tulip Head Screw Bone - [id number] Implanted:Qty: 3 on 10/22/2022 by Pineda Soliman MD at [facility] N/A: Spine Lumbar [employer] 1134.0100 / / Explanted Type Area Shotblast Equipment Operator Device Identifier Shelf Expiration Date Model / Serial / Lot [employer] Inc [id number] 5.5 Smartassist Catheter Device Ventricular Assist - [id number] - [id number] Implanted:Qty: 1 on 11/17/2020 by Joo Whatley MD at [facility] Explanted:Qty: 1 on 11/24/2020 by Joo Whatley MD [employer] 07/10/2022 [id number] / [id number] / [employer] Creo 5.5mm 50mm Cannulated Modular Spine Screw Bone 1067.4550 - [id number] Explanted:Qty: 1 on 10/22/[address] [facility] N/A: Spine Lumbar [employer] 1067.4550 / / [employer] 1134.011 Creo 10mm Polyaxial Modular Tulip Spinal Screw Bone Nonsterile - [id number] Explanted:Qty: 3 on 10/22/[address] [facility] N/A: Spine Lumbar [employer] 1134.0110 / / [employer] 1134.001 Creo Spinal Cap Locking Nonsterile Mis - [id number] Explanted:Qty: 6 on 10/22/[address] [facility] N/A: Spine Lumbar [facility] 1134.0010 / / Procedures Procedure Name Priority [...] 9:35 AM - Electronically signed by Diana Vasquez M.D. LC: JAMIR Report ID: [id number] Reading Location: [place] [address] Procedure Note Miladis Vasquez MD - 12/21/2024 [...] 9:35 AM - Electronically signed by Diana Vasquez M.D. LC: JAMIR Report ID: [id number] Reading Location: [place] [address] Dhara Lovelace NP IMG CT PROCEDURES Final [...] conjunction with diffuse bulge. Severe subarticular stenosis. [id number] right foraminal narrowing. Mild left foraminal narrowing. [...] Diana Vasquez M.D. LC: JAMIR Report ID: [id number] Reading Location: [id number] Procedure Note Miladis Vasquez MD - 12/21/2024 [...] in conjunction with diffuse bulge. Severe subarticularstenosis. [id number] right foraminal narrowing. Mild left foraminalnarrowing. Findings [...] Diana Vasquez M.D. LC: JAMIR Report ID: [id number] Reading Location: [id number] us Dhara Lovelace PLANT NURSERY WORKER IMG CT PROCEDURES Final Res ult * DEVICE CHECK - REMOTE (11/20/2024 2:15 PM CDT) Anatomical Region Laterality Modality Other Narrative 12/10/2024 6:51 AM CDT Biotronik Edora Dual Pacemaker. Dx; SND. DOI 11/30/2022-Pastor. Biotronik remtote monitoring. Routine DDD Pacemaker Remote. Transmission attached. Battery status-Ok, 85% remaining to ELMO. Stable lead impedances, pacing and sensing thresholds. Presenting rhythm: -VS. AP-22 %, COLLEGE TUTOR-0 %. No AT/AF episodes noted. No Ventricular high rate episodes detected. Medication: Plavix, Coreg. Follow up: office pacemaker scheduled 05/01/2025. Eric remote f/u 02/26/2025. Berta Christine RN us Jhony Baumann MD [facility] PROC [...] by Renetta Hernandez M.D. SN: Report ID: [id number] Reading Location: [id number] Procedure Note Renetta Hernandez MD - 10/20/2022 [...] by Renetta Hernandez M.D. SN: Report ID: [id number] Reading Location: [place] [address] Fay Alcala MD IMG CT PROCEDURES Final Result from Last 3 Months or Most Recently Relevant to Health Maintenance Insurance AETNA MEDICARE GOLD AETNA MEDICARE [place] [address] Advance Directives For more information, please contact: [phone] * Full Code (Latest Code Status on File) Date Activated Date Inactivated Comments 11/14/2020 10:06 PM 12/01/2020 11:57 AM Care Teams Commercial Retoucher Relationship Specialty Start Date End Date Estrella Michael NP [address] [place] [address] PCP - General Nurse Practitioner 11/14/24 Jhony Baumann MD [address] [address] Consulting Physician Cardiology 10/26/22 Pineda Soliman MD [address] [id number] Consulting Physician Neurosurgery 12/10/22
--- OUTSIDE RECORDS SUMMARY | 2024-12-26 11:42 | XMS_ITS | Encounter Summary ---
Author Organization [facility] Address 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 Gender Identity Not on file Sexual Orientation Not on file documented as of this encounter Last Filed Vital Signs Vital Sign Reading Time Taken Comments Blood Pressure 120/70 11/16/2004 9:30 AM CDT Pulse - - Temperature - - Respiratory Rate - - Oxygen Saturation - - Inhaled Oxygen Concentration - - Weight 74.4 kg (164 lb) 11/16/2004 9:30 AM CDT Height - - Body Mass Index - - documented in this encounter Plan of Treatment Not on file documented as of this encounter Visit Diagnoses Not on filedocumented in this encounter Care Teams Bell Clerk Relationship Specialty Start Date End Date Vince Turcios MD PCP - General Family Practice 10/28/21 documented as of this encounter
[2024-12-26 18:49] LABS: Hematocrit 43.5 % (42.0-52.0); Hemoglobin 13.9 g/dL (14.0-18.0); Mean Corpuscular Hemoglobin 32.1 pg (26-34); Mean Corpuscular Volume 100.5 fl (80-100); Mean Platelet Volume 9.6 fl (7.4-10.4); Platelet Count Result 194 k/mm3 (150-375); Red Blood Count 4.33 M/mm3 (4.6-6.20); Red Cell Distribution Width 13.3 % (11.5-14.5); White Blood Count 6.8 K/mm3 (4.5-10.0)
[2024-12-26 19:14] LABS: Alanine Aminotransferase 18 U/L (6-50); Albumin Level 4.3 g/dL (3.5-5.1); Alkaline Phosphatase 42 U/L (38-126); Anion Gap 8 mmol/L (4-12); Aspartate Amino Transferase 48 U/L (17-59); Bilirubin,Total 0.5 mg/dL (0.2-1.3); Blood Urea Nitrogen 23 mg/dL (9-20); Calcium 9.5 mg/dL (8.4-10.2); Carbon Dioxide 25 mmol/L (22-30); Chloride 106 mmol/L (98-107); Cholesterol 236 mg/dL (0-200); Estimated Glomerular Filt Rate 39; Glucose 111 mg/dL (65-110); HDL Direct 56 mg/dL; Magnesium 2.3 mg/dL (1.6-2.3); Sodium 139 mmol/L (137-145); Total Protein 7.6 g/dL (6.3-8.2); Triglycerides 91 mg/dL (<150)
[2024-12-26 19:25] LABS: LDL Cholesterol Direct 130 mg/dL
[2024-12-26 19:44] LABS: Thyroid Stimulating Hormone 0.273 uIU/mL (0.465-4.680)
== END 2024-12-26 10:18 | disposition home or self-care (01) ==
LOC: ANHBWCLAB 10:18
PROVIDERS: PCP Nurse Practitioner Adult Health; Visit Provider Nurse Practitioner Adult Health
DX: E03.9 Hypothyroidism, unspecified (principal); I10 Essential (primary) hypertension; D53.9 Nutritional anemia, unspecified
CPT/HCPCS: 36415; 80053; 80061; 83735; 84443; 85027